=== PATIENT | female | born 1995 | race Caucasian/White ===

== ENCOUNTER 2020-09-11 13:45 | Outpatient (REF) | payer OTHER, SELFPAY | END 2020-09-11 13:46 | disposition home or self-care (01) | LOC: HO.LAB 13:45 | PROVIDERS: PCP Internal Medicine; Visit Provider Internal Medicine | DX: R30.0 Dysuria (principal); N39.0 Urinary tract infection, site not specified | CPT/HCPCS: 87086 ==

== ENCOUNTER → 2020-09-25 08:46 | Outpatient (BNVA) | payer OTHER, SELFPAY | PROVIDERS: PCP Internal Medicine; Referring Provider Internal Medicine; Visit Provider Internal Medicine Endocrinology, Diabetes & Metabolism | DX: Z76.89 Persons encountering health services in other specified circumstances (principal) ==

== ENCOUNTER → 2020-09-30 07:55 | Outpatient (BNVA) | payer OTHER, SELFPAY | PROVIDERS: Visit Provider Obstetrics & Gynecology | DX: N92.1 Excessive and frequent menstruation with irregular cycle (principal) | CPT/HCPCS: 81025; 99212 ==

== ENCOUNTER 2020-11-26 15:03 | Outpatient (REF) | payer OTHER, SELFPAY ==
[2020-11-26 16:26] LABS: Free T4 (Free Thyroxine) 0.95 ng/dL (0.71-1.85); Thyroid Stimulating Hormone 4.38 uIU/mL (0.32-4.0)
== END 2020-11-26 15:04 | disposition home or self-care (01) ==
LOC: HO.LAB 15:03
PROVIDERS: PCP Internal Medicine; Visit Provider Internal Medicine Endocrinology, Diabetes & Metabolism
DX: E89.0 Postprocedural hypothyroidism (principal)
CPT/HCPCS: 36415; 84439; 84443

== ENCOUNTER 2020-12-14 14:08 | Outpatient (REF) | payer OTHER, SELFPAY ==
[2020-12-14 15:39] LABS: Free T4 (Free Thyroxine) 0.96 ng/dL (0.71-1.85); Thyroid Stimulating Hormone 3.79 uIU/mL (0.32-4.0)
== END 2020-12-14 14:09 | disposition home or self-care (01) ==
LOC: HO.LAB 14:08
PROVIDERS: PCP Internal Medicine; Visit Provider Internal Medicine Endocrinology, Diabetes & Metabolism
DX: E03.9 Hypothyroidism, unspecified (principal)
CPT/HCPCS: 36415; 84439; 84443

== ENCOUNTER → 2021-01-05 15:34 | Outpatient (BNVA) | payer OTHER, SELFPAY | PROVIDERS: PCP Internal Medicine; Visit Provider Obstetrics & Gynecology | DX: Z30.9 Encounter for contraceptive management, unspecified (principal) | CPT/HCPCS: 81003; 99212 ==

== ENCOUNTER 2021-01-18 14:18 | Outpatient (REF) | payer OTHER, SELFPAY ==
[2021-01-18 15:38] LABS: MANUAL DIFF FLAG NO
[2021-01-18 15:42] LABS: Basophils Percent Auto 0.4 % (0-2); Eosinophils Absolute Auto 0.1 X10*3/uL (0.0-0.4); Eosinophils Percent Auto 0.6 % (0-4); Hematocrit 37.5 % (37-47); Hemoglobin 12.4 g/dl (12.0-16.0); Imm Gran Abs Auto 0.01 X10*3/uL (0.00-0.03); Imm Gran Pct Auto 0.1 % (0.0-0.4); Lymphocytes Absolute Auto 1.6 X10*3/uL (1.2-4.9); Lymphocytes Percent Auto 20.1 % (20-40); Mean Corpuscular HGB Conc 33.1 g/dl (31.0-35.0); Mean Corpuscular Hemoglobin 29.6 pg (27.0-33.0); Mean Corpuscular Volume 89.5 fL (80-98); Mean Platelet Volume 9.4 fL (9.4-12.3); Monocytes Absolute Auto 0.5 X10*3/uL (0.1-1.2); Neutrophils Percent Auto 72.8 % (45-73); Platelet Count 275 X10*3/uL (160-400); Red Blood Count 4.19 X10*6/uL (4.20-5.50); Red Cell Distribution Width 12.7 % (11.0-16.0); White Blood Count 8.2 X10*3/uL (4.8-10.8)
[2021-01-18 16:10] LABS: Alanine Aminotransferase 7 U/L (0-31); Albumin Level 4.2 g/dL (3.5-5.0); Alkaline Phosphatase 52 U/L (39-117); Anion Gap 13 (12-20); Aspartate Amino Transferase 12 U/L (5-31); Bilirubin Total 0.6 mg/dL (0.0-1.0); Blood Urea Nitrogen 12 mg/dL (9-16); C Reactive Protein 0.51 mg/dL (< or = 0.50); Calcium 8.9 mg/dL (8.4-10.2); Carbon Dioxide 24 mmol/L (22-29); Chloride 106 mmol/L (96-108); Estimated Glomerular Filt Rate > 60; Glucose Random 87 mg/dL (60-115); Sodium 139 mmol/L (135-145); Total Protein 7.1 g/dL (6.5-8.0)
[2021-01-18 16:30] LABS: Free T4 (Free Thyroxine) 0.88 ng/dL (0.71-1.85)
[2021-01-18 16:33] LABS: Erythrocyte Sedimentation Rate 4 MM/HR (0-20)
[2021-01-19 13:32] LABS: Transglutaminase IgA 1 U/mL
[2021-01-26 14:17] LABS: Endomysial IgA Antibody Negative (Negative)
== END 2021-01-18 14:19 | disposition home or self-care (01) ==
LOC: HO.LAB 14:18
PROVIDERS: Internal Medicine Endocrinology, Diabetes & Metabolism; PCP Internal Medicine; Visit Provider Physician Assistant
DX: K92.1 Melena (principal); K62.5 Hemorrhage of anus and rectum; R74.01 Elevation of levels of liver transaminase levels; R10.11 Right upper quadrant pain; R19.7 Diarrhea, unspecified; E89.0 Postprocedural hypothyroidism
CPT/HCPCS: 36415; 80053; 83516; 84439; 84443; 85025; 85652; 86140; 86255; 86256

== ENCOUNTER 2021-01-20 10:32 | Outpatient (REF) | payer OTHER, SELFPAY ==
[2021-01-27 22:07] LABS: Calprotectin, Fecal 1290 mcg/g
== END 2021-01-20 10:33 | disposition home or self-care (01) ==
LOC: HO.LNP 10:32
PROVIDERS: Visit Provider Physician Assistant
DX: R19.7 Diarrhea, unspecified (principal)
CPT/HCPCS: 83993

== ENCOUNTER 2021-01-27 11:51 | Day surgery (SDC) | payer OTHER, SELFPAY ==
[2021-01-20 13:26] VITALS: BMI 19.3
--- NOTE | 2021-01-26 09:12 | P.CONAN_ITS ---
Documented by User: Sarah Piña 01/26/21 09:14 HPI - Anesthesia Eval Consult details Narrative: 25yo F for Colonoscopy PMFSH Active Problems Active Problems: All Active Problems (Updated 01/25/21 @ 17:59 by Aniket Gonzalez MD) Tinea pedis (Acute) UTI (urinary tract infection) (Acute) Metrorrhagia (Acute) Constipation (Acute) Rectal bleeding (Acute) UTI (urinary tract infection) (Acute) Contraceptive management (Acute) Hematochezia (Acute) Vitamin D deficiency (Acute) Anxiety (Acute) GERD (gastroesophageal reflux disease) (Acute) Hypothyroidism (Acute) Past Medical History Medical History (Updated 01/25/21 @ 17:59 by Aniket Gonzalez MD) Anxiety Esophageal stricture GERD (gastroesophageal reflux disease) History of Graves' disease Hypothyroidism Intussusception Mild asthma Pancreatitis Psoriasis Renal calculus, right Vitamin D deficiency Family History Family History Father Elevated cholesterol Neuropathy Mother Raynauds syndrome Cervical cancer Sister Cervical cancer Paternal Grandmother Heart problem Maternal Grandmother Lung cancer Surgical History Surgical History History of biopsy History of endoscopy History of nasal cauterization History of nasal surgery History of surgery History of tonsillectomy History of wisdom tooth extraction Social History Social History Household Members: Family Are you a primary healthcare financial analyst to a significant other at home: No Do you presently have visiting nurse or other home services: No Alcohol intake: current Alcohol intake frequency: a few times a week Smoking Status: Never smoker Smoked in Last 30 Days: No Smoking Quit Date: uses Hookah occassionally Second Hand Smoke Exposure: Yes (Parents are smokers) Use of substances other than those prescribed or required for medical reasons: No Have you been hit, kicked, punched, or otherwise hurt by someone within the past year? 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 Sexual orientation: Straight/Heterosexual Gender identity: female Meds Allergies Allergy/AdvReac Type Severity Reaction Status Date / Time codeine [CODEINE] Allergy Unknown N/V Verified 01/25/21 16:51 hydromorphone [Dilaudid] Allergy Unknown sob Verified 01/25/21 16:51 itching, vomiting metronidazole Allergy Unknown Mood Swings Verified 01/25/21 16:51 Home Medications Medication Instructions Recorded Confirmed Last Taken Type fluoride (sodium) 1.1 % dental gel 0 applic DENTAL 09/25/20 01/25/21 Unknown History Exam Exam Date and Time: January 26, 2021 0912 Height,Weight and Vital Signs: Height 5 ft 1 in Weight 46.266 kg Pertinent Lab Results Pertinent Lab Results: Laboratory Tests 01/18/21 01/18/21 15:19 15:19 WBC 8.2 Hgb 12.4 Hct 37.5 Plt Count 275 Sodium 139 Potassium 4.0 Chloride 106 Carbon Dioxide 24 BUN 12 Creatinine 0.71 Assessment and Plan Assessment Anesthesia Assessment: Chart Reviewed Documented by User: Aysha Perez 01/27/21 12:09 [facility] Past Medical History Medical History (Updated 01/25/21 @ 17:59 by Aniket Gonzalez MD) Anxiety Esophageal stricture GERD (gastroesophageal reflux disease) History of Graves' disease Hypothyroidism Intussusception Mild asthma Pancreatitis Psoriasis Renal calculus, right Vitamin D deficiency Family History Family History Father Elevated cholesterol Neuropathy Mother Raynauds syndrome Cervical cancer Sister Cervical cancer Paternal Grandmother Heart problem Maternal Grandmother Lung cancer Surgical History Surgical History History of biopsy History of endoscopy History of nasal cauterization History of nasal surgery History of surgery History of tonsillectomy History of wisdom tooth extraction Social History Social History Household Members: Family Are you a primary healthcare financial analyst to a significant other at home: No Do you presently have visiting nurse or other home services: No Alcohol intake: current Alcohol intake frequency: a few times a week Smoking Status: Never smoker Smoked in Last 30 Days: No Smoking Quit Date: uses Hookah occassionally Second Hand Smoke Exposure: Yes (Parents are smokers) Use of substances other than those prescribed or required for medical reasons: No Have you been hit, kicked, punched, or otherwise hurt by someone within the past year? 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 Sexual orientation: Straight/Heterosexual Gender identity: female Meds Allergies Allergy/AdvReac Type Severity Reaction Status Date / Time codeine [CODEINE] Allergy Unknown N/V Verified 01/25/21 16:51 hydromorphone [Dilaudid] Allergy Unknown sob Verified 01/25/21 16:51 itching, vomiting metronidazole Allergy Unknown Mood Swings Verified 01/25/21 16:51 Home Medications Medication Instructions Recorded Confirmed Last Taken Type fluoride (sodium) 1.1 % dental gel 0 applic DENTAL 09/25/20 01/25/21 Unknown History Exam Airway Mallampati Class: II TM Dist: >3cm Neck ROM: Full Heart: RRR Lungs: CTA BL Assessment and Plan Assessment Anesthesia Assessment: Anesthesia Plan Discussed and Chart Reviewed Final Anesthetic Review NPO: Yes (Sip water with meds) ASA Class: II Final Preanesthetic Review: No Changes in Pt Med Stat, Meds/Allgs Chart Reviewed and Consent Obtained/Reviewed Patient Risk: Intermediate Procedure Risk: Intermediate Anesthetic Plan Anesthetic Plan: MAC: Disposition: Standard PACU
--- NOTE | 2021-01-27 12:04 | MHC.SHP ---
Pre-Procedural Eval Section B Chief Complaint: rectal bleeding Relevant Family History (Specify if Yes): No Relevant Social History: None Present Medications: see Short Stay Collaborative assessment Medical History: Significant History ( Anxiety Esophageal stricture GERD (gastroesophageal reflux disease) History of Graves' disease Hypothyroidism Intussusception Mild asthma Pancreatitis Psoriasis Renal calculus, right Vitamin D deficiency) History of Previous Operations: Relevant previous surgery/procedure and date(s) (History of biopsy History of endoscopy History of nasal cauterization History of nasal surgery History of surgery History of tonsillectomy History of wisdom tooth extraction) Allergies: Allergies Allergy/AdvReac Type Severity Reaction Status Date / Time codeine [CODEINE] Allergy Unknown N/V Verified 01/25/21 16:51 hydromorphone [Dilaudid] Allergy Unknown sob Verified 01/25/21 16:51 itching, vomiting metronidazole Allergy Unknown Mood Swings Verified 01/25/21 16:51 Review of Systems Sugical H&P ROS: Negative: Constitution, Cardiovascular, Respiratory, Neurological, Psychiatric, Hem-Onc, Allergic/Immunologic, Gastrointestinal, Genitourinary, Musculoskeletal, Integumentary, Endocrine and Eyes/Ears/Nose/Throat Exam Surgical H&P Exam: Normal: HEENT, Normal: Heart, Normal: Lungs, Normal: Extremities, Normal: Abdomen, Normal: Skin and Normal: Neurological Plan Diagnosis/Plan: Unchanged I have reviewed the history and physical and performed a pertinent physical examination on my patient. No changes have occurred unless specified.
[2021-01-27 12:06] VITALS: TEMP 36.6
[2021-01-27 12:26] VITALS: BP 98/63; PULSE 70; RESP 14; TEMP 36.6; O2SAT 97; BMI 19.3
--- NOTE | 2021-01-27 12:56 | PM.OP ---
Brief Operative Note Date of Service: 01/27/21 Pre-op diagnosis: rectal bleeding Post-op diagnosis: same Procedure: see op note Surgeon: Medina Zelaya MD Anesthesia: MAC Estimated blood loss (mL): 0 Condition: stable Disposition: PACU
--- NOTE | 2021-01-27 12:57 | W.PM.OPN ---
Operative Note Operative Note Date of Service: 01/27/21 Narrative: Operative Information Procedure Description: Colonoscopy COLONOSCOPY Instrument: Olympus variable stiffness pediatric scope 190L Colonoscopy Monitoring: Vital signs and clinical assessment, continuous EKG monitoring, Pulse oximetry, Carbon Dioxide monitoring and blood pressure monitoring were done throughout the procedure. Colon withdrawal time was 11 minutes. Procedure: The patient was placed in the left lateral decubitis position and pre-procedure medications were administered. After a digital rectal examination of the ano-rectum, the video colonoscope was inserted into the rectum and advanced through the colon to the cecum/TI. The colonoscope was slowly withdrawn in a retrograde panoramic fashion and the colon mucosa was carefully examined including a retroflexed view of the rectum. Findings and interventions are described below. Procedure Difficulty:easy Findings: Terminal Ileum-normal, nodular lymphoid hyperplasia noted, bx taken Cecum: micro abscesses noted with granularity and mild erythema, bx taken Ascending Colon: micro abscesses noted with granularity and mild erythema, bx taken Transverse Colon -micro abscesses noted with granularity and mild erythema, bx taken Descending Colon: micro abscesses noted with granularity and mild erythema, bx taken Sigmoid Colon: micro abscesses noted with granularity and mild erythema, bx taken Rectum: Retroflexion with small internal hemorrhoids, grade I, small erosions with erythema noted, bx taken Anorectum - normal Colon preparation: Mcgregor Bowel Preparation Scale Right colon; 3 Transverse colon: 3 Left colon; 3 (0 = Unprepared colon segment with mucosa not seen due to solid stool that cannot be cleared. 1 = Portion of mucosa of the colon segment seen, but other areas of the colon segment not well seen due to staining, residual stool and/or opaque liquid. 2 = Minor amount of residual staining, small fragments of stool and/or opaque liquid, but mucosa of colon segment seen well. 3 = Entire mucosa of colon segment seen well with no residual staining, small fragments of stool or opaque liquid) Impression and Post Procedure Diagnosis: non specific colitis, with micro-abscesses and granularity, worse in cecum and rectum internal hemorrhoids nodular lymphoid hyperplasia Plan: High fiber diet leaflet Avoid straining at stool, epsom salts and sitz bath, anusol supps or cream prn Repeat Colonoscopy aged 45 or earlier if clinically indicated check nsaid use history might need stool testing for parasites Above findings were reviewed with the patient and relevant handouts were provided if indicated.
[2021-01-27 12:59] LABS: UPreg QC Valid YES; Urine Pregnancy NEGATIVE (NEGATIVE)
[2021-01-27 13:40] VITALS: BP 87/47; PULSE 77; RESP 16; TEMP 36.3; O2SAT 99
[2021-01-27 13:55] VITALS: BP 106/77; PULSE 77; RESP 20; TEMP 36.3; O2SAT 100
--- NOTE | 2021-02-06 13:09 | PM.EVENT ---
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 Advised cont amox, topical hydrocortisone cream to rectal area. Call office on Mon to f/u.
== END 2021-01-27 14:23 | disposition home or self-care (01) ==
PROVIDERS: PCP Internal Medicine; Visit Provider Internal Medicine Gastroenterology
PROC: 0DJD8ZZ Inspection of Lower Intestinal Tract, Via Natural or Artificial Opening Endoscopic (ICD-10-PCS; CPT 45378; principal; 2021-01-27 13:10)
DX: K62.5 Hemorrhage of anus and rectum (principal); K52.9 Noninfective gastroenteritis and colitis, unspecified; K64.0 First degree hemorrhoids; K21.9 Gastro-esophageal reflux disease without esophagitis; K22.2 Esophageal obstruction; K85.90 Acute pancreatitis without necrosis or infection, unspecified; F41.9 Anxiety disorder, unspecified; J45.909 Unspecified asthma, uncomplicated; E55.9 Vitamin D deficiency, unspecified; E89.0 Postprocedural hypothyroidism; Z79.899 Other long term (current) drug therapy; Z88.8 Allergy status to other drugs, medicaments and biological substances; Z87.442 Personal history of urinary calculi; Z77.22 Contact with and (suspected) exposure to environmental tobacco smoke (acute) (chronic)
CPT/HCPCS: 45380; 81025; 88305

== ENCOUNTER 2021-01-29 13:54 | Outpatient (REF) | payer OTHER, SELFPAY ==
--- NOTE | ~2021-01-29 | US_ITS ---
EXAMINATION: US THYROID CLINICAL INFORMATION: Hypothyroidism, unspecified. COMPARISON: Ultrasound soft tissue head/neck thyroid dated 06/15/2017. TECHNIQUE: Linear transducer grayscale and color Doppler examination with attention to the region of the thyroid. FINDINGS: SIZE: Measurements of the thyroid lobes and nodules are given in sagittal, anteroposterior and transverse dimensions respectively. Right Thyroid Lobe: 3.6 x 0.9 x 1.1 cm, volume 1.9 mL. Previously 3.8 x 0.9 x 1.1 cm, volume 2.0 mL. Parenchyma: The gland echotexture is heterogeneous. Thyroid vascularity is normal. Left Thyroid Lobe: 4.0 x 0.6 x 0.8 cm, volume 1.0 mL. Previously 4.0 x 0.8 x 1.2 cm, volume 2.0 mL. Parenchyma: The gland echotexture is heterogeneous. Thyroid vascularity is normal. Isthmus: 0.1 cm in maximum AP dimension. Previously 0.2 cm. Estimated total number of nodules greater than or equal to 1 cm: 0. No focal thyroid nodule is seen. NODES: No lymphadenopathy is seen in the tissue surrounding the thyroid gland. US/US thyroid IMPRESSION: Small heterogeneous thyroid gland similar to previous exams.
== END 2021-01-29 13:55 | disposition home or self-care (01) ==
LOC: HO.HMGCX 13:54
PROVIDERS: Visit Provider Internal Medicine
DX: E03.9 Hypothyroidism, unspecified (principal)
CPT/HCPCS: 76536

== ENCOUNTER → 2021-02-10 13:43 | Outpatient (BNVA) | payer OTHER, SELFPAY | PROVIDERS: PCP Internal Medicine; Visit Provider Physician Assistant ==

== ENCOUNTER → 2021-03-15 10:07 | Outpatient (BNVA) | payer OTHER, SELFPAY | PROVIDERS: PCP Internal Medicine; Visit Provider Physician Assistant ==

== ENCOUNTER 2021-04-23 13:43 | Outpatient (REF) | payer OTHER, SELFPAY ==
--- NOTE | ~2021-04-23 | CT_ITS ---
EXAMINATION: CT ENTEROGRAPHY ABDOMEN AND PELVIS WITH CONTRAST CLINICAL INFORMATION: Noninfected gastroenteritis and colitis COMPARISON: Previous CT of the abdomen and pelvis February 2020 and MRI of the abdomen June 2020 TECHNIQUE: Study performed with oral VoLumen (1350 mL) and 480 mL of water to distend the abdomen. The patient was injected with 85 mL Omnipaque 350 intravenous contrast which was administered without adverse effect. Coronal and sagittal reformatted images were obtained at the technologist's workstation. This CT examination was performed using dose optimization techniques as appropriate, variously including the following: *Automated exposure control *Adjustment of mA and/or kV according to patient size (this includes techniques or standardized protocols for targeted exams where dose is matched to indication/reason for exam; i.e. extremities or head) *Use of iterative reconstruction technique DLP: 162 mGy-cm FINDINGS: GASTROINTESTINAL FINDINGS: Stomach: Well-distended and normal in appearance. Small intestine: Satisfactorily distended and normal in appearance. Large intestine: Well-distended and normal in appearance. No perirectal changes demonstrated. The appendix is normal. There is stool throughout the colon questionable for constipation. Additional findings: No abnormal enhancement of the vasa recta or significant mesenteric or retroperitoneal lymphadenopathy is seen. No abdominal abscess or fistulous tract demonstrated. ABDOMINAL AND PELVIC CT FINDINGS: Liver, gallbladder, biliary tract: Normal Pancreas: Normal Spleen: Normal Adrenal glands and kidneys: Normal Ureters and bladder: Normal Lymphovascular structures: Normal Bones: Normal Lung bases: Normal CT/CT enterography IMPRESSION: Stool throughout the colon questionable for constipation otherwise unremarkable examination.
[2021-04-23] MEDS: iohexoL 350 MG/ML 100 ML INFUS..BTL IV (16:01)
[2021-04-23] MEDS: Sorbitol/Mannit/Xanth Imaging 500 ML LIQUID 1500 ML PO (16:01)
== END 2021-04-23 13:44 | disposition home or self-care (01) ==
LOC: HO.US 13:43
PROVIDERS: PCP Internal Medicine; Visit Provider Physician Assistant
DX: K52.9 Noninfective gastroenteritis and colitis, unspecified (principal)
CPT/HCPCS: 74177; Q9967

== ENCOUNTER 2021-08-03 09:37 | Outpatient (REF) | payer OTHER, SELFPAY ==
[2021-08-03 11:02] LABS: MANUAL DIFF FLAG NO
[2021-08-03 11:09] LABS: Basophils Percent Auto 0.3 % (0-2); Eosinophils Absolute Auto 0.1 X10*3/uL (0.0-0.4); Eosinophils Percent Auto 1.1 % (0-4); Hemoglobin 13.1 g/dl (12.0-16.0); Imm Gran Abs Auto 0.01 X10*3/uL (0.00-0.03); Imm Gran Pct Auto 0.2 % (0.0-0.4); Lymphocytes Absolute Auto 1.5 X10*3/uL (1.2-4.9); Lymphocytes Percent Auto 23.3 % (20-40); Mean Corpuscular Hemoglobin 28.7 pg (27.0-33.0); Mean Corpuscular Volume 89.9 fL (80-98); Mean Platelet Volume 9.1 fL (9.4-12.3); Monocytes Absolute Auto 0.5 X10*3/uL (0.1-1.2); Monocytes Percent Auto 7.2 % (2-11); Neutrophils Absolute Auto 4.4 X10*3/uL (2.0-8.3); Neutrophils Percent Auto 67.9 % (45-73); Platelet Count 293 X10*3/uL (160-400); Red Blood Count 4.56 X10*6/uL (4.20-5.50); Red Cell Distribution Width 12.6 % (11.0-16.0); White Blood Count 6.5 X10*3/uL (4.8-10.8)
[2021-08-03 11:39] LABS: Alanine Aminotransferase 11 U/L (0-31); Albumin Level 4.3 g/dL (3.5-5.0); Alkaline Phosphatase 57 U/L (39-117); Anion Gap 13 (12-20); Aspartate Amino Transferase 16 U/L (5-31); Bilirubin Total 0.6 mg/dL (0.0-1.0); Blood Urea Nitrogen 11 mg/dL (9-16); Calcium 9.3 mg/dL (8.4-10.2); Carbon Dioxide 23 mmol/L (22-29); Chloride 107 mmol/L (96-108); Estimated Glomerular Filt Rate > 60; Glucose Random 87 mg/dL (60-115); Potassium 4.9 mmol/L (3.3-5.1); Sodium 138 mmol/L (135-145); Total Protein 7.1 g/dL (6.5-8.0)
[2021-08-03 11:52] LABS: Appearance Urine CLEAR; Color Urine YELLOW; Glucose Urine UA NEG (NEG); Leukocyte Esterase Urine NEG (NEG); Nitrite Urine NEG (NEG); Specific Gravity - Urine 1.025 (1.005-1.025); UACC Culture Trigger NO; Urine Blood TRACE (NEG); Urine Ketones NEG (NEG); Urine Protein NEG (NEG-TRACE)
[2021-08-03 12:05] LABS: Free T4 (Free Thyroxine) 0.83 ng/dL (0.71-1.85); Thyroid Stimulating Hormone 8.43 uIU/mL (0.32-4.0)
[2021-08-03 12:09] LABS: Folate 17.1 ng/mL (> or = 4.0); Vitamin B12 195 pg/mL (200-900)
[2021-08-03 12:25] LABS: Bacteria Urine 1+ /LPF; Mucus Urine 2+ /LPF; RBC Urine 0 /HPF (0); Squamous Epithelial Cell Urine TRACE /LPF; WBC Urine 0-2 /HPF (0-4)
== END 2021-08-03 09:38 | disposition home or self-care (01) ==
LOC: HO.LAB 09:37
PROVIDERS: PCP Internal Medicine; Referring Provider Internal Medicine; Visit Provider Internal Medicine Gastroenterology
DX: N39.0 Urinary tract infection, site not specified (principal); K52.9 Noninfective gastroenteritis and colitis, unspecified; E03.9 Hypothyroidism, unspecified
CPT/HCPCS: 36415; 80053; 81001; 82306; 82607; 82746; 84439; 84443; 85025; 99212

== ENCOUNTER 2021-09-01 09:02 | Day surgery (SDC) | payer OTHER, SELFPAY ==
[2021-08-27 12:02] VITALS: BMI 19.3
--- NOTE | 2021-08-31 10:44 | P.CONAN_ITS ---
Documented by User: Sarah Piña NP 08/31/21 10:45 HPI - Anesthesia Eval Consult details Narrative: 26yo F for Upper Endoscopy colo with MAC 01/2021 PMF Active Problems Active Problems: All Active Problems (Updated 08/27/21 @ 11:53 by Susan Peoples RN) UTI (urinary tract infection) (Acute) Metrorrhagia (Acute) Constipation (Acute) Rectal bleeding (Acute) UTI (urinary tract infection) (Acute) Contraceptive management (Acute) Hematochezia (Acute) Tinea pedis (Acute) Colitis (Acute) Annual physical exam (Acute) Vitamin D deficiency (Acute) Anxiety (Acute) GERD (gastroesophageal reflux disease) (Acute) Hypothyroidism (Acute) Past Medical History Medical History Anxiety Esophageal stricture GERD (gastroesophageal reflux disease) History of Graves' disease Hypothyroidism Intussusception Mild asthma Pancreatitis Psoriasis Renal calculus, right Vitamin D deficiency Family History Family History Father Elevated cholesterol Neuropathy Mother Raynauds syndrome Cervical cancer Sister Cervical cancer Paternal Grandmother Heart problem Maternal Grandmother Lung cancer Surgical History Surgical History History of biopsy History of endoscopy History of nasal cauterization History of nasal surgery History of surgery History of tonsillectomy History of wisdom tooth extraction Hx of colonoscopy Social History Social History Household Members: Family Housing: House Are you a primary landcare facilitator to a significant other at home: No Do you presently have visiting nurse or other home services: No Alcohol intake: current Alcohol intake frequency: holidays/special occasions o nly Patient Tobacco Use Status: Never used Tobacco e-Cigarette/Vaping Use: Never Used Second Hand Smoke Exposure: Yes (Parents are smokers) Advance Directives Information Provided: Yes (informational brochure mailed) Advance Directives on File: No service: No Current occupational status: employed 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 Sexual orientation: Straight/Heterosexual Gender identity: Female Meds Allergies Allergy/AdvReac Type Severity Reaction Status Date / Time hydromorphone [Dilaudid] Allergy Intermediate sob Verified 08/27/21 11:55 itching, vomiting metronidazole Allergy Intermediate Mood Swings Verified 08/27/21 11:55 codeine [CODEINE] AdvReac Intermediate N/V Verified 08/27/21 11:55 Home Medications Medication Instructions Recorded Confirmed Last Taken Type fluoride (sodium) 1.1 % dental gel 0 applic DENTAL 09/25/20 05/27/21 Unknown History Exam Exam Date and Time: August 31, 2021 1044 Height,Weight and Vital Signs: Height 5 ft 1 in Weight 46.266 kg Pertinent Lab Results Pertinent Lab Results: Laboratory Tests 08/03/21 08/03/21 10:44 10:44 WBC 6.5 Hgb 13.1 Hct 41.0 Plt Count 293 Sodium 138 Potassium 4.9 D Chloride 107 Carbon Dioxide 23 BUN 11 Creatinine 0.79 Assessment and Plan Assessment Anesthesia Assessment: Chart Reviewed Documented by User: Yani Huerta MD 09/01/21 10:31 PMFSH Past Medical History Medical History Anxiety Esophageal stricture GERD (gastroesophageal reflux disease) History of Graves' disease Hypothyroidism Intussusception Mild asthma Pancreatitis Psoriasis Renal calculus, right Vitamin D deficiency Functional capacity: independent ambulation Patient : No Family History Family History Father Elevated cholesterol Neuropathy Mother Raynauds syndrome Cervical cancer Sister Cervical cancer Paternal Grandmother Heart problem Maternal Grandmother Lung cancer Family history of problems with anesthesia: No Surgical History Surgical History History of biopsy History of endoscopy History of nasal cauterization History of nasal surgery History of surgery History of tonsillectomy History of wisdom tooth extraction Hx of colonoscopy History of Problems with Anesthesia: No Social History Social History (Reviewed 08/03/21 @ 09:41 by LINDSAY Bell Household Members: Family Housing: House Are you a primary landcare facilitator to a significant other at home: No Do you presently have visiting nurse or other home services: No Alcohol intake: current Alcohol intake frequency: holidays/special occasions only Patient Tobacco Use Status: Never used Tobacco e-Cigarette/Vaping Use: Never Used Second Hand Smoke Exposure: Yes (Parents are smokers) Advance Directives Information Provided: Yes (informational brochure mailed) Advance Directives on File: No service: No Current occupational status: employed 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 Sexual orientation: Straight/Heterosexual Gender identity: Female Meds Allergies Allergy/AdvReac Type Severity Reaction Status Date / Time hydromorphone [Dilaudid] Allergy Intermediate sob Verified 08/27/21 11:55 itching, vomiting metronidazole Allergy Intermediate Mood Swings Verified 08/27/21 11:55 codeine [CODEINE] AdvReac Intermediate N/V Verified 08/27/21 11:55 Home Medications Medication Instructions Recorded Confirmed Last Taken Type fluoride (sodium) 1.1 % dental gel 0 applic DENTAL 09/25/20 05/27/21 Unknown History Exam Airway Mallampati Class: II TM Dist: >3cm Neck ROM: Full Heart: RRR Other: CTA Assessment and Plan Final Anesthetic Review Family History of Problems with Anesthesia: No History of Problems with Anesthesia: No
[2021-09-01 09:38] VITALS: BP 114/76; PULSE 61; RESP 14; TEMP 36.1; O2SAT 98; BMI 21.7
[2021-09-01] MEDS: Lactated Ringers 1,000 ML 100 ML IVCONT (09:40)
--- NOTE | 2021-09-01 10:05 | MHC.SHP ---
Pre-Procedural Eval Section A Date of Service: 09/01/21 The patient is an INPATIENT: No The History & Physical has been completed within 30 days and I have reviewed it.: Yes Section B Chief Complaint: gastroenteritis Allergies: Allergies Allergy/AdvReac Type Severity Reaction Status Date / Time hydromorphone [Dilaudid] Allergy Intermediate sob Verified 08/27/21 11:55 itching, vomiting metronidazole Allergy Intermediate Mood Swings Verified 08/27/21 11:55 codeine [CODEINE] AdvReac Intermediate N/V Verified 08/27/21 11:55 Plan Diagnosis/Plan: Unchanged I have reviewed the history and physical and performed a pertinent physical examination on my patient. No changes have occurred unless specified.
[2021-09-01 10:15] LABS: UPreg QC Valid YES; Urine Pregnancy NEGATIVE (NEGATIVE)
--- NOTE | 2021-09-01 10:17 | P.BOP_ITS ---
Brief Operative Note Date of Service: 09/01/21 Pre-op diagnosis: upper abdominal pain Post-op diagnosis: same Procedure: see op note Surgeon: Medina Zelaya MD Anesthesia: MAC Was an Inspector Health Care Facilities used for this Procedure?: No Estimated blood loss (mL): 0 Condition: stable Disposition: PACU
--- NOTE | 2021-09-01 10:34 | W.PM.OPN ---
Operative Note Operative Note Date of Service: 09/01/21 Narrative: Procedure Description: EGD FLEXIBLE TRANSORAL UPPER GASTROINTESTINAL ENDOSCOPY UPPER ENDOSCOPY Consent: Indications for the procedure and potential complications of bleeding, perforation, reaction to medications and missed diagnosis were discussed with the patient and informed consent was obtained. Instrument: Olympus GIF H 190 J mid size upper endoscope Monitoring: Vital signs and clinical assessment, continuous EKG monitoring, Pulse oximetry, Carbon Dioxide monitoring and blood pressure monitoring were done throughout the procedure. Procedure: The patient was placed in the left lateral decubitis position and pre-procedure medications were administered and a bite block was placed. The endoscope was inserted into the mouth and advanced under direct vision to the third part of duodenum. A careful inspection was made as the upper endoscope was withdrawn including a retroflexed examination of the proximal stomach; Findings and interventions are described below. Findings: Larynx:normal Esophagus: GE junction at 36 cm, diaphragm hiatus at 38 cm, 2 cm sliding hiatal hernia noted. mile erythema at GEJ, bx taken as well as random esophagus . 10 mm esophageal inlet patch noted Stomach: Patchy gastric erythema. Biopsies were obtained. Grade 2 flap valve on retroflexed examination of the cardia. Duodenum: Patchy erythema in duodenum, bx taken Intervention: Biopsies as noted above Impression/Findings: esophagitis duodenitis mild gastritis hiatal hernia esophageal inlet patch PLAN: await bx, if ongoing sx then probably GES, maybe consider MRI pancreas can also give trial of PPI and assess response
[2021-09-01 10:40] VITALS: BP 97/55; PULSE 84; RESP 16; TEMP 36.2; O2SAT 97
[2021-09-01 10:55] VITALS: BP 119/87; PULSE 76; RESP 16; TEMP 36.2; O2SAT 99
--- NOTE | 2021-09-01 11:43 | HO.POSTANES ---
Post Anesthesia Evaluation Post Anesthesia Evaluation Vital Signs: Vital Signs Temp Pulse Resp BP Pulse Ox 09/01/21 10:55 97.1 F 76 16 119/87 99 09/01/21 10:40 97.1 F 84 16 97/55 L 97 09/01/21 09:38 97.0 F 61 14 114/76 98 Anesthesia: Monitored Mental Status: Awake Pain Control: Satisfactory Nausea/Vomiting: None Hydration: Adequate Anesthesia-Related Issues: No Anes. Related Issues
== END 2021-09-01 11:32 | disposition home or self-care (01) ==
PROVIDERS: Nurse Practitioner; PCP Internal Medicine; Visit Provider Internal Medicine Gastroenterology
PROC: 0DJ08ZZ Inspection of Upper Intestinal Tract, Via Natural or Artificial Opening Endoscopic (ICD-10-PCS; CPT 43235; principal; 2021-09-01 10:20)
DX: K52.9 Noninfective gastroenteritis and colitis, unspecified (principal); K20.80 Other esophagitis without bleeding; K29.80 Duodenitis without bleeding; K29.60 Other gastritis without bleeding; K44.9 Diaphragmatic hernia without obstruction or gangrene; Q39.8 Other congenital malformations of esophagus; K21.9 Gastro-esophageal reflux disease without esophagitis; J45.909 Unspecified asthma, uncomplicated; E03.9 Hypothyroidism, unspecified; E55.9 Vitamin D deficiency, unspecified; Z87.19 Personal history of other diseases of the digestive system; Z77.22 Contact with and (suspected) exposure to environmental tobacco smoke (acute) (chronic); Z88.8 Allergy status to other drugs, medicaments and biological substances
CPT/HCPCS: 43239; 81025; 88305; 88342

== ENCOUNTER 2021-09-16 10:53 | Outpatient (REF) | payer OTHER, SELFPAY ==
[2021-09-17 04:31] LABS: CT PCR NOT DETECTED (Not Detect.); NG PCR NOT DETECTED (Not Detect.)
[2021-09-17 09:44] LABS: BV Int Neg Control Negative (Negative); BV Int Pos Control Positive (Positive)
== END 2021-09-16 10:54 | disposition home or self-care (01) ==
LOC: HO.LAB 10:53
PROVIDERS: PCP Internal Medicine; Visit Provider Obstetrics & Gynecology
DX: Z01.411 Encounter for gynecological examination (general) (routine) with abnormal findings (principal); Z11.3 Encounter for screening for infections with a predominantly sexual mode of transmission; N89.8 Other specified noninflammatory disorders of vagina; K62.5 Hemorrhage of anus and rectum
CPT/HCPCS: 87480; 87491; 87510; 87591; 87660

== ENCOUNTER 2021-10-04 15:31 | Outpatient (REF) | payer OTHER, SELFPAY ==
[2021-10-04 17:04] LABS: Free T4 (Free Thyroxine) 0.88 ng/dL (0.71-1.85); Thyroid Stimulating Hormone 5.04 uIU/mL (0.32-4.0)
== END 2021-10-04 15:32 | disposition home or self-care (01) ==
LOC: HO.LAB 15:31
PROVIDERS: PCP Internal Medicine; Visit Provider Internal Medicine
DX: E03.9 Hypothyroidism, unspecified (principal); R30.0 Dysuria; N39.0 Urinary tract infection, site not specified; K52.9 Noninfective gastroenteritis and colitis, unspecified
CPT/HCPCS: 36415; 84439; 84443

== ENCOUNTER 2021-10-18 11:11 | Outpatient (REF) | payer OTHER, SELFPAY ==
[2021-10-22 21:36] LABS: Calprotectin, Fecal 728 mcg/g
== END 2021-10-18 11:12 | disposition home or self-care (01) ==
LOC: HO.LNP 11:11
PROVIDERS: Visit Provider Internal Medicine Gastroenterology
DX: K52.9 Noninfective gastroenteritis and colitis, unspecified (principal); N39.0 Urinary tract infection, site not specified
CPT/HCPCS: 83993

== ENCOUNTER → 2021-12-03 07:53 | Outpatient (REF) | payer OTHER, SELFPAY ==
--- NOTE | ~2021-12-03 | NM_ITS ---
EXAMINATION: RADIONUCLIDE SOLID FOOD GASTRIC EMPTYING 4-HOUR STUDY CLINICAL INFORMATION: Early satiety. COMPARISON: None. TECHNIQUE: A standard meal consisting of 4 oz of Egg Beaters brand equivalent tagged with 1 mCi Tc-99m Sulfur Colloid, 8 oz water and 2 slices of toast with jelly was administered orally to the patient. Images were obtained using a dual head gamma camera in the anterior and posterior projections over of the stomach immediately post ingestion and at hourly intervals up to 4 hours post ingestion. The anterior and posterior counts at each time interval were averaged using the geometric mean and expressed as percentage of the immediate post ingestion counts. FINDINGS: There is good visualization of activity in the stomach immediately post ingestion. As the study progresses, there is good clearance of activity from the stomach and visualization of progressively increasing small bowel activity. By the end of the study, there is almost no retention noted in the stomach. Retention in the stomach at each time interval was: 1 hour 88% (normal 37%-90%) 2 hours 47% (normal 30%-60%) 3 hours 9% 4 hours 4% (normal 0%-10%) NM/NM gastric emptying study IMPRESSION: Normal 4-hour solid food gastric emptying study.
== END ==
LOC: HO.NUCMED 07:53
PROVIDERS: PCP Internal Medicine; Visit Provider Internal Medicine Gastroenterology
DX: R68.81 Early satiety (principal)
CPT/HCPCS: 78264; A9541

== ENCOUNTER 2021-12-17 09:36 | Outpatient (REF) | payer OTHER, SELFPAY ==
[2021-12-17 11:34] LABS: Free T4 (Free Thyroxine) 0.84 ng/dL (0.71-1.85); Thyroid Stimulating Hormone 6.45 uIU/mL (0.32-4.0)
[2021-12-17 11:55] LABS: Folate 16.6 ng/mL (> or = 4.0); Vitamin B12 199 pg/mL (200-900)
[2021-12-21 12:26] LABS: Parietal Cell Antibody <=20.0 Unit (<=20.0)
[2021-12-23 00:11] LABS: Intrinsic Factor Antibodies Negative (Negative)
== END 2021-12-17 09:37 | disposition home or self-care (01) ==
LOC: HO.LAB 09:36
PROVIDERS: PCP Internal Medicine; Referring Provider Internal Medicine; Visit Provider Internal Medicine Gastroenterology
DX: K21.9 Gastro-esophageal reflux disease without esophagitis (principal); E53.8 Deficiency of other specified B group vitamins; E03.9 Hypothyroidism, unspecified
CPT/HCPCS: 36415; 82607; 82746; 83516; 84439; 84443; 86340; 99212

== ENCOUNTER 2022-01-31 15:21 | Outpatient (REF) | payer OTHER, SELFPAY ==
[2022-01-31 17:29] LABS: Free T4 (Free Thyroxine) 0.94 ng/dL (0.71-1.85); Thyroid Stimulating Hormone 1.62 uIU/mL (0.32-4.0)
== END 2022-01-31 15:22 | disposition home or self-care (01) ==
LOC: HO.LAB 15:21
PROVIDERS: PCP Internal Medicine; Visit Provider Internal Medicine
DX: E03.9 Hypothyroidism, unspecified (principal)
CPT/HCPCS: 36415; 84439; 84443

== ENCOUNTER 2022-03-28 16:02 | Outpatient (REF) | payer OTHER, SELFPAY ==
--- NOTE | ~2022-03-28 | US_ITS ---
EXAMINATION: US VENOUS ULTRASOUND WITH DOPPLER LOWER EXTREMITY, BILATERAL CLINICAL INFORMATION: Edema. COMPARISON: None TECHNIQUE: Ultrasound of the deep veins is performed from the hip to the calf with compression sonography and color and pulse Doppler assessment. Spectral analysis with color-flow imaging is performed. FINDINGS: RIGHT: There is normal venous compression and respiratory variation and augmented flow. The visualized common femoral vein, superficial femoral vein, profunda femoral vein, popliteal vein, and the trifurcation region shows no evidence of deep venous thrombosis. There is no significant popliteal fossa cyst. LEFT: There is normal venous compression and respiratory variation and augmented flow. The visualized common femoral vein, superficial femoral vein, profunda femoral vein, popliteal vein, and the trifurcation region shows no evidence of deep venous thrombosis. There is no significant popliteal fossa cyst. If the patient's symptoms persist, followup ultrasound in 5 days 7 days might be of value to exclude proximal propagation from a non-visualized calf vein. US/US venous duplex LE BI IMPRESSION: No DVT demonstrated in the bilateral lower extremities.
[2022-03-28 16:51] LABS: MANUAL DIFF FLAG NO
[2022-03-28 18:24] LABS: Basophils Percent Auto 0.2 % (0-2); Eosinophils Absolute Auto 0.1 X10*3/uL (0.0-0.4); Eosinophils Percent Auto 0.7 % (0-4); Hematocrit 36.2 % (37.0-47.0); Hemoglobin 11.8 g/dl (12.0-16.0); Imm Gran Abs Auto 0.03 X10*3/uL (0.00-0.03); Imm Gran Pct Auto 0.4 % (0.0-0.4); Lymphocytes Absolute Auto 1.8 X10*3/uL (1.2-4.9); Lymphocytes Percent Auto 21.4 % (20-40); Mean Corpuscular HGB Conc 32.6 g/dl (31.0-35.0); Mean Corpuscular Hemoglobin 28.2 pg (27.0-33.0); Mean Corpuscular Volume 86.4 fL (80.0-98.0); Mean Platelet Volume 9.7 fL (9.4-12.3); Monocytes Absolute Auto 0.7 X10*3/uL (0.1-1.2); Monocytes Percent Auto 8.5 % (2-11); Neutrophils Absolute Auto 5.6 x10*3/uL (2.0-8.3); Neutrophils Percent Auto 68.8 % (45-73); Platelet Count 328 X10*3/uL (160-400); Red Blood Count 4.19 X10*6/uL (4.20-5.50); Red Cell Distribution Width 14.4 % (11.0-16.0); White Blood Count 8.2 X10*3/uL (4.8-10.8)
[2022-03-28 18:34] LABS: D Dimer High Sensitivity 154 NG/ML
[2022-03-28 18:45] LABS: Alanine Aminotransferase 18 U/L (0-31); Albumin Level 3.8 g/dL (3.5-5.0); Alkaline Phosphatase 59 U/L (39-117); Anion Gap 12 (12-20); Aspartate Amino Transferase 18 U/L (5-31); Bilirubin Total 0.5 mg/dL (0.0-1.0); Blood Urea Nitrogen 8 mg/dL (9-16); Calcium 9.2 mg/dL (8.4-10.2); Carbon Dioxide 23 mmol/L (22-29); Chloride 107 mmol/L (96-108); Estimated Glomerular Filt Rate > 60; Glucose Random 71 mg/dL (60-115); Potassium 4.3 mmol/L (3.3-5.1); Sodium 138 mmol/L (135-145); Total Protein 7.1 g/dL (6.5-8.0)
[2022-03-28 19:08] LABS: Free T4 (Free Thyroxine) 0.87 ng/dL (0.71-1.85); Thyroid Stimulating Hormone 1.19 uIU/mL (0.32-4.0)
== END 2022-03-28 16:03 | disposition home or self-care (01) ==
LOC: HO.US 16:02
PROVIDERS: Visit Provider Internal Medicine
DX: R60.0 Localized edema (principal); M79.89 Other specified soft tissue disorders
CPT/HCPCS: 36415; 80053; 84439; 84443; 85025; 85379; 93970

== ENCOUNTER → 2022-04-01 13:57 | Outpatient (BNVA) | payer OTHER, SELFPAY | PROVIDERS: PCP Internal Medicine; Visit Provider Internal Medicine Endocrinology, Diabetes & Metabolism | DX: E03.9 Hypothyroidism, unspecified (principal) | CPT/HCPCS: 99212 ==

== ENCOUNTER 2022-04-03 | Outpatient (REF) | payer OTHER, SELFPAY | END 2022-04-03 00:01 | disposition home or self-care (01) | LOC: HO.LNP | PROVIDERS: Visit Provider Internal Medicine Gastroenterology | DX: Z13.89 Encounter for screening for other disorder (principal) ==

== ENCOUNTER 2022-05-04 11:02 | Outpatient (REF) | payer OTHER, SELFPAY ==
--- NOTE | ~2022-05-04 | XR_ITS ---
EXAMINATION: XR FOOT, RIGHT XR FOOT, LEFT CLINICAL INFORMATION: Bilateral foot pain. No known trauma. COMPARISON: Bilateral lower extremity venous ultrasound 03/28/2022. TECHNIQUE: Each foot is imaged in 3 views. There are total of 6 views. FINDINGS: Right: Normal bony mineralization. No acute or healing fracture, dislocation, destructive process. There is mild hallux valgus first MTP of approximately 20 degrees. The retrocalcaneal recess preserved. No calcaneal spurring. No joint narrowing or erosive change. Left: Normal bony mineralization. No acute or healing fracture, dislocation, destructive process. The retrocalcaneal recess preserved. No calcaneal spurring. No joint narrowing or erosive change. XR/XR foot RT 2V IMPRESSION: -No fracture, dislocation, or arthropathy. -Mild right hallux valgus first MTP.
--- NOTE | ~2022-05-04 | XR_ITS ---
EXAMINATION: XR FOOT, RIGHT XR FOOT, LEFT CLINICAL INFORMATION: Bilateral foot pain. No known trauma. COMPARISON: Bilateral lower extremity venous ultrasound 03/28/2022. TECHNIQUE: Each foot is imaged in 3 views. There are total of 6 views. FINDINGS: Right: Normal bony mineralization. No acute or healing fracture, dislocation, destructive process. There is mild hallux valgus first MTP of approximately 20 degrees. The retrocalcaneal recess preserved. No calcaneal spurring. No joint narrowing or erosive change. Left: Normal bony mineralization. No acute or healing fracture, dislocation, destructive process. The retrocalcaneal recess preserved. No calcaneal spurring. No joint narrowing or erosive change. XR/XR foot LT 2V IMPRESSION: -No fracture, dislocation, or arthropathy. -Mild right hallux valgus first MTP.
== END 2022-05-04 11:03 | disposition home or self-care (01) ==
LOC: HO.XRAY 11:02
PROVIDERS: PCP Internal Medicine; Referring Provider Internal Medicine; Visit Provider Physician Assistant
DX: M79.671 Pain in right foot (principal); M79.672 Pain in left foot
CPT/HCPCS: 73620

== ENCOUNTER 2022-07-21 15:40 | Outpatient (REF) | payer OTHER, SELFPAY ==
--- NOTE | ~2022-07-21 | XR_ITS ---
EXAMINATION: XR WRIST, RIGHT CLINICAL INFORMATION: Unspecified injury of the wrist COMPARISON: None TECHNIQUE: PA, lateral, and oblique views of the right wrist. FINDINGS: No acute fracture or dislocation is identified. Joint spaces are maintained. Cast/splint material is seen along the radial aspect of the wrist and thumb. XR/XR wrist RT min 3V IMPRESSION: 1. No acute fracture or dislocation identified.
== END 2022-07-21 15:41 | disposition home or self-care (01) ==
LOC: HO.HMGCX 15:40
PROVIDERS: PCP Internal Medicine
DX: S69.91XD Unspecified injury of right wrist, hand and finger(s), subsequent encounter (principal)
CPT/HCPCS: 73110

== ENCOUNTER 2022-09-16 06:28 | Outpatient (REF) | payer OTHER, SELFPAY ==
[2022-09-16 06:36] LABS: MANUAL DIFF FLAG NO
[2022-09-16 07:37] LABS: Basophils Percent Auto 0.4 % (0-2); Eosinophils Absolute Auto 0.1 X10*3/uL (0.0-0.4); Eosinophils Percent Auto 1.2 % (0-4); Hematocrit 35.7 % (37.0-47.0); Hemoglobin 11.8 g/dl (12.0-16.0); Imm Gran Abs Auto 0.02 X10*3/uL (0.00-0.03); Imm Gran Pct Auto 0.3 % (0.0-0.4); Lymphocytes Absolute Auto 2.5 X10*3/uL (1.2-4.9); Lymphocytes Percent Auto 31.4 % (20-40); Mean Corpuscular HGB Conc 33.1 g/dl (31.0-35.0); Mean Corpuscular Hemoglobin 26.9 pg (27.0-33.0); Mean Corpuscular Volume 81.3 fL (80.0-98.0); Mean Platelet Volume 9.4 fL (9.4-12.3); Monocytes Absolute Auto 0.7 X10*3/uL (0.1-1.2); Monocytes Percent Auto 8.6 % (2-11); Neutrophils Absolute Auto 4.6 x10*3/uL (2.0-8.3); Neutrophils Percent Auto 58.1 % (45-73); Platelet Count 337 X10*3/uL (160-400); Red Blood Count 4.39 X10*6/uL (4.20-5.50); Red Cell Distribution Width 14.2 % (11.0-16.0); Retic HGB Equivalent 31.9 pg (30.0-35.0); Reticulocyte Percent 1.4 % (0.5-1.8); Reticulocytes Absolute 0.061 X10*6/uL (0.026-0.095); White Blood Count 7.8 X10*3/uL (4.8-10.8)
[2022-09-16 08:02] LABS: Alanine Aminotransferase 12 U/L (0-31); Albumin Level 4.1 g/dL (3.5-5.0); Alkaline Phosphatase 70 U/L (39-117); Anion Gap 15 (12-20); Aspartate Amino Transferase 15 U/L (5-31); Bilirubin Total 0.7 mg/dL (0.0-1.0); Blood Urea Nitrogen 11 mg/dL (9-16); Calcium 9.3 mg/dL (8.4-10.2); Carbon Dioxide 22 mmol/L (22-29); Chloride 106 mmol/L (96-108); Cholesterol 211 mg/dL; Estimated Glomerular Filt Rate > 60; Glucose Random 87 mg/dL (60-115); HDL Cholesterol 69 mg/dL; Iron 99 mcg/dL (30-160); LDL Cholesterol Calculated 119 mg/dl; Percent Iron Saturation 19 % (15-50); Potassium 4.2 mmol/L (3.3-5.1); Sodium 139 mmol/L (135-145); Total Iron Binding Capacity 518 mcg/dL (228-428); Triglycerides 118 mg/dL; Unsaturated Iron Binding 419 ug/dL
[2022-09-16 08:25] LABS: Ferritin 7 ng/mL (10-122); Thyroid Stimulating Hormone 2.32 uIU/mL (0.32-4.0); Vitamin D 25-OH Total 20.9 ng/mL (>30)
[2022-09-16 09:10] LABS: Folate 16.2 ng/mL (> or = 4.0); Vitamin B12 861 pg/mL (200-900)
[2022-09-19 22:12] LABS: Lyme Abs Screen <0.90 index
== END 2022-09-16 06:29 | disposition home or self-care (01) ==
LOC: HO.LAB 06:28
PROVIDERS: PCP Internal Medicine; Visit Provider Internal Medicine
DX: D64.9 Anemia, unspecified (principal); F41.1 Generalized anxiety disorder; E53.8 Deficiency of other specified B group vitamins; E78.00 Pure hypercholesterolemia, unspecified; G57.90 Unspecified mononeuropathy of unspecified lower limb
CPT/HCPCS: 36415; 80053; 80061; 82306; 82607; 82728; 82746; 83540; 84439; 84443; 85025; 85045; 86617; 86618

== ENCOUNTER 2022-10-18 13:40 | Emergency (ER) | payer OTHER, SELFPAY ==
--- NOTE | 2022-10-18 14:27 | ED_ITS ---
HPI - General Adult General Chief complaint: Upper Respiratory Symptoms Stated complaint: SOB/Cough Source: patient Mode of arrival: ambulatory History of Present Illness HPI narrative: See course Section Related Data Home Medications Medication Instructions Recorded Confirmed pantoprazole 20 mg tablet,delayed 20 mg PO QAM 07/21/22 09/19/22 release Previous Rx's Medication Instructions Recorded desogestrel 0.15 mg-ethinyl 1 tab PO DAILY 28 days #28 tabs 01/13/22 estradiol 0.03 mg tablet (Apri) levothyroxine 75 mcg tablet 75 mcg PO DAILY 90 days #90 tabs 05/17/22 cyanocobalamin (vitamin B-12) 1,000 mcg PO DAILY #90 caps 08/15/22 1,000 mcg capsule ascorbate calcium (vitamin C) 500 500 mg PO DAILY #30 tabs 09/16/22 mg tablet ferrous sulfate 325 mg (65 mg 325 mg PO DAILY 90 days #90 tabs 09/16/22 iron) tablet (Feosol) cholecalciferol (vitamin D3) 50 50 mcg PO DAILY 90 days #90 caps 09/19/22 mcg (2,000 unit) capsule cyclobenzaprine 5 mg tablet 5 mg PO BEDTIME PRN muscle spasm 10/10/22 #30 tabs paroxetine HCl 10 mg tablet 10 mg PO BEDTIME #90 tabs 10/14/22 Allergies Allergy/AdvReac Type Severity Reaction Status Date / Time hydromorphone [Dilaudid] Allergy Intermediate sob Verified 09/19/22 17:01 itching, vomiting metronidazole Allergy Intermediate Mood Swings Verified 09/19/22 17:01 codeine [CODEINE] AdvReac Intermediate N/V Verified 09/19/22 17:01 Review of Systems Review of Systems: See course Section PMF Past Medical History Source: nursing notes reviewed Medical History Annual physical exam Annual physical exam Anxiety Esophageal stricture Foot pain, left Foot pain, right GERD (gastroesophageal reflux disease) GERD with stricture History of Graves' disease Hypothyroidism Intussusception Leg swelling Mild asthma Muscle spasm Pain of right middle finger Pancreatitis Psoriasis Rectal bleeding Rectal bleeding Renal calculus, right UTI (urinary tract infection) UTI (urinary tract infection) Vaginal discharge Vitamin B12 deficiency Vitamin D deficiency Well woman exam Surgical History H/O radioactive iodine thyroid ablation History of biopsy History of endoscopy History of nasal cauterization History of nasal surgery History of surgery History of tonsillectomy History of wisdom tooth extraction Hx of colonoscopy Family History Family History Father Elevated cholesterol Neuropathy Throat cancer Mother Raynauds syndrome Cervical cancer Sister Cervical cancer Paternal Grandmother Heart problem Maternal Grandmother Lung cancer Paternal Grandfather Thyroid cancer Social History Social History Household Members: Family Housing: House Are you a primary hospice home care coordinator to a significant other at home: No Do you presently have visiting nurse or other home services: No Alcohol intake: current Alcohol intake frequency: holidays/special occasions only Patient Tobacco Use Status: Never used Tobacco e-Cigarette/Vaping Use: Never Used Second Hand Smoke Exposure: Yes (Parents are smokers) service: No Current occupational status: employed 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 VS Reviewed GEN: NAD EARS: wnl THROAT: wnl LUNGS: CTAB CVS: RRR ABD: NT/ND I reviewed all investigations, patient is afebrile, not tachypneic, and oxygenating well on room air. Patient is otherwise discharge and suspect that she is experiencing residual viral symptoms. No evidence to suggest pneumonia. Discharge Plan Discharge Clinical Impression: Viral syndrome Patient Disposition: Home, Self-Care Instructions: Viral Syndrome (ED) Additional Instructions: 1. Recommend that patient use [id number] Tylenol/ibuprofen as well as cough medication. All your testing was negative at this time there is no evidence to suggest pneumonia. 2. Follow-up with your primary care provider. Return to the ER for worsening symptoms. Prescriptions: No Action desogestrel-ethinyl estradiol [Apri] 0.15-0.03 mg tablet 1 tab PO DAILY 28 Days Qty: 28 11RF levothyroxine 75 mcg tablet 75 mcg PO DAILY 90 Days Qty: 90 2RF cyanocobalamin (vitamin B-12) 1,000 mcg capsule 1,000 mcg PO DAILY Qty: 90 3RF ferrous sulfate [Feosol] 325 mg (65 mg iron) tablet 325 mg PO DAILY 90 Days Qty: 90 1RF ascorbate calcium (vitamin C) 500 mg tablet 500 mg PO DAILY Qty: 30 4RF cyclobenzaprine 5 mg tablet 5 mg PO BEDTIME PRN (Reason: muscle spasm) Qty: 30 2RF paroxetine HCl 10 mg tablet 10 mg PO BEDTIME Qty: 90 2RF cholecalciferol (vitamin D3) 50 mcg (2,000 unit) capsule 50 mcg PO DAILY 90 Days Qty: 90 3RF pantoprazole 20 mg tablet,delayed release (DR/EC) 20 mg PO QAM Referrals: Po,Aniket Churchill MD [Primary Care Provider] - Stand Alone Forms: Work/School Release
[2022-10-18 14:28] VITALS: BP 114/69; PULSE 84; RESP 16; TEMP 36.4; O2SAT 99; BMI 25.4
[2022-10-18 15:04] LABS: COVID-19 Test Negative (Negative); IDNOW Serial# 16C4AD1C; IDNOW Serial# BCCEAD1C; Influenza A Negative (Negative); Influenza B2 Negative (Negative)
== END 2022-10-18 16:54 | disposition home or self-care (01) ==
PROVIDERS: Emergency Provider Student in an Organized Health Care Education/Training Program; PCP Internal Medicine
DX: B34.9 Viral infection, unspecified (principal); R06.02 Shortness of breath; R05.9 Cough, unspecified; Z20.822 Contact with and (suspected) exposure to COVID-19
CPT/HCPCS: 87502; 87635; 99282; 99283

== ENCOUNTER 2022-10-19 16:27 | Outpatient (REF) | payer OTHER, SELFPAY ==
--- NOTE | ~2022-10-19 | XR_ITS ---
EXAMINATION: XR CHEST CLINICAL INFORMATION: Bronchitis and cough. COMPARISON: None TECHNIQUE: 2 views of the chest were obtained. FINDINGS: Normal appearance of the cardiomediastinal silhouette. No focal airspace opacity, pleural effusion or pneumothorax. No acute osseous abnormalities. The visualized upper abdomen is within normal limits. XR/XR chest 2V IMPRESSION: No acute cardiopulmonary findings.
== END 2022-10-19 16:28 | disposition home or self-care (01) ==
LOC: HO.XRAY 16:27
PROVIDERS: PCP Internal Medicine; Visit Provider Physician Assistant
DX: J40 Bronchitis, not specified as acute or chronic (principal)
CPT/HCPCS: 71046

== ENCOUNTER 2022-11-22 14:56 | Outpatient (REF) | payer OTHER, SELFPAY ==
[2022-11-23 09:32] LABS: CT PCR NOT DETECTED (Not Detect.); NG PCR NOT DETECTED (Not Detect.)
[2022-11-23 10:02] LABS: BV Int Neg Control Negative (Negative); BV Int Pos Control Positive (Positive)
== END 2022-11-22 14:57 | disposition home or self-care (01) ==
LOC: HO.LNP 14:56
PROVIDERS: PCP Internal Medicine; Visit Provider Advanced Practice Midwife
DX: Z12.4 Encounter for screening for malignant neoplasm of cervix (principal); Z11.3 Encounter for screening for infections with a predominantly sexual mode of transmission
CPT/HCPCS: 0353U; 87480; 87510; 87660; 88142

== ENCOUNTER 2023-01-31 16:38 | Outpatient (REF) | payer OTHER, SELFPAY ==
--- NOTE | ~2023-01-31 | XR_ITS ---
EXAMINATION: XR RIBS, LEFT CLINICAL INFORMATION: Dorsalgia COMPARISON: None available. TECHNIQUE: 3 views of the left ribs were obtained. FINDINGS: Lungs are clear. No consolidation, pneumothorax, or pleural effusion. The cardiomediastinal silhouette and pulmonary vasculature are normal. Osseous structures are unremarkable. Ribs are intact. No fractures are identified. XR/XR ribs LT 2V IMPRESSION: Unremarkable examination.
--- NOTE | ~2023-01-31 | XR_ITS ---
EXAMINATION: XR CHEST CLINICAL INFORMATION: Dorsalgia COMPARISON: Chest x-ray on 10/19/2022 TECHNIQUE: 2 views of the chest were obtained. FINDINGS: No significant abnormality is noted involving the heart, lungs, mediastinum, bony thorax or soft tissues. XR/XR chest 2V IMPRESSION: Unremarkable examination.
== END 2023-01-31 16:39 | disposition home or self-care (01) ==
LOC: HO.XRAY 16:38
PROVIDERS: PCP Internal Medicine; Visit Provider Internal Medicine
DX: M54.9 Dorsalgia, unspecified (principal)
CPT/HCPCS: 71046; 71100

== ENCOUNTER 2023-03-31 14:23 | Outpatient (REF) | payer OTHER, SELFPAY ==
[2023-03-31 16:22] LABS: Magnesium 1.9 mg/dL (1.6-2.6)
[2023-03-31 16:51] LABS: Folate 17.6 ng/mL (> or = 4.0); Free T4 (Free Thyroxine) 0.94 ng/dL (0.71-1.85); Vitamin B12 1080 pg/mL (200-900)
== END 2023-03-31 14:24 | disposition home or self-care (01) ==
LOC: HO.LAB 14:23
PROVIDERS: PCP Internal Medicine; Visit Provider Internal Medicine
DX: E03.9 Hypothyroidism, unspecified (principal)
CPT/HCPCS: 36415; 82607; 82746; 83735; 84439; 84443

== ENCOUNTER 2023-05-03 17:00 | Outpatient (RCR) | payer OTHER, SELFPAY ==
--- NOTE | 2023-03-15 17:55 | MHC.PT.EP ---
[facility] [place] Office [place] Office [place] Office [address] Nevin Nieves [address] [phone] F: [phone] F: [phone] F: [phone] F: [phone] Physical Therapy Plan of Care Date of Evaluation: Date of Surgery: N/A Diagnosis: dorsalgia (RC) Assessment: pt is a 27 y/o female presenting to physical therapy w/ referring diagnosis of M54.9 dorsalgia. pt's signs and symptoms consistent w/ weakness of periscapular musculature as well as poor habitual posturing. Impairments include pain, decreased range of motion, decreased strength, impaired functional mobility, impaired postural awareness, and altered ambulation mechanics. pt is a good candidate for skilled PT due to age, potential remediation of impairments, typical disease/condition progression and prognosis, comorbidities, and motivation. pt would benefit from skilled PT intervention to provide a tailored strengthening and stretching exercise program, functional training, gait training, postural re-training, neuromuscular re-education, modalities as needed for pain, equipment safety demonstration. Frequency and Duration: The patient will be seen 2x/wk for 4 wks Short Term Goals: pt will be I w/ HEP to promote self-management of condition. pt will demo proper sitting posture w/ lumbar roll to promote neutral spine w/ seated ADLs. Ice [employer] Associate Goals: pt will improve B rhomboid/middle trap strength to at least 4/5 to promote neutral spine posture. 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 Treatment Plan: Modalities to reduce pain, spasms and effusion. Manual therapy to restore motion and function. Therapeutic exercise to improve strength and flexibility. Neuromuscular re-education for posture and balance. Therapeutic activities to return to functional activities of daily living. Electronically signed by: Aysha Jensen PT, DPT Please sign and return to therapist. Thank you for your referral.
--- NOTE | 2023-05-18 10:23 | MHC.PT.DC ---
[facility] [place] Office [place] Office [place] Office [address] Nevin Nieves [address] [facility] [phone] F: [phone] F: [phone] F: [phone] F: [phone] Physical Therapy Discharge Report Diagnosis: dorsalgia (RC) Date of Surgery: N/A Date of Evaluation: 03/15/23 Date of Discharge: 05/18/23 Treatments to Date: 8 Cancellations to Date: 1 No Shows to Date: 0 Discharge Status: Recommend MD Follow-up Discharge Summary: The patient overall stated she has not noticed much change in regards to her symptoms. Clinically, I do feel she is still weak in her arms, upper back and core. She was encouraged to continue strengthening and to trial massage therapy. I do not think she is appropriate for a chiropractor as she is weak and may develop instability with frequent manipulations. She is independent with her home exercise program and is discharged from this physical therapy plan of care. Electronically signed by: Aysha Stevens PT, DPT Please sign and return to therapist. Thank you for your referral.
== END 2023-05-18 10:23 | disposition home or self-care (01) ==
LOC: HO.PT 17:00
PROVIDERS: PCP Internal Medicine; Visit Provider Internal Medicine
DX: M54.9 Dorsalgia, unspecified (principal)
CPT/HCPCS: 97110; 97112; 97140; 97162

== ENCOUNTER 2023-06-12 17:33 | Outpatient (AMB) | payer OTHER, SELFPAY ==
[2023-06-12 17:36] VITALS: BP 118/72; PULSE 85; O2SAT 98; BMI 25.1
--- NOTE | 2023-06-12 17:36 | A.OFFPC_ITS ---
Vital Signs 06/12/23 17:36 Height 5 ft 1 in Weight 133 lb BMI 25.1 BP 118/72 Blood Pressure Location Lt brachial Position Sitting Pulse 85 Pulse Source Pulse Oximeter Pulse Oximetry (%) 98 Oxygen Delivery Method Room Air Intake Visit Reasons: Annual Physical Allergies hydromorphone [Dilaudid] Allergy (Intermediate, Verified 06/12/23 17:37) sob itching, vomiting metronidazole Allergy (Intermediate, Verified 06/12/23 17:37) Mood Swings codeine [CODEINE] Adverse Reaction (Intermediate, Verified 06/12/23 17:37) N/V Medication List - Last Reconciled 06/12/23 by Aniket Gonzalez MD alclometasone 0.05% appl topical BID PRN ascorbate calcium (vitamin C) 500 mg PO DAILY betamethasone dipropionate 0.05% appl topical calcipotriene 0.005% appl topical cholecalciferol (vitamin D3) 50 mcg PO DAILY 90 days cyanocobalamin (vitamin B-12) 1,000 mcg PO DAILY cyclobenzaprine 5 mg PO BEDTIME PRN desogestrel-ethinyl estradiol 0.15-0.03 mg (Apri) 1 tab PO DAILY 84 days ferrous sulfate (Feosol) 325 mg PO DAILY 90 days levothyroxine 75 mcg PO DAILY 90 days pantoprazole 20 mg PO QAM paroxetine HCl 10 mg PO BEDTIME Tobacco use date assessed: 01/30/23 Dental Screening Dental Screen Date: 06/12/23 Did you have a dental visit in the last 12 months?: Yes Did you have a dental problem in the last 6 months where you did not have access to dental care?: No Was dental information given to patient?: Patient has dentist HPI Annual Physical HPI Details 28-year-old female with a history of constipation hypothyroidism and iron deficiency anemia last seen in January 2023 patient is here for physical exam. Had some back pain and went for physical therapy. [facility] Medical History (Updated 06/12/23 @ 18:01 by Aniket Gonzalez MD) Annual physical exam Anxiety Constipation Esophageal stricture Foot pain, right GERD (gastroesophageal reflux disease) History of Graves' disease Hypothyroidism Intussusception Leg swelling Mild asthma Muscle spasm Pain of right middle finger Pancreatitis Psoriasis Rectal bleeding Renal calculus, right UTI (urinary tract infection) Vaginal discharge Vitamin B12 deficiency Vitamin D deficiency Well woman exam Surgical History H/O radioactive iodine thyroid ablation History of biopsy History of endoscopy History of nasal cauterization History of nasal surgery History of surgery History of tonsillectomy History of wisdom tooth extraction Hx of colonoscopy Family History (Updated 06/12/23 @ 18:05 by Aniket Gonzalez MD) Father Elevated cholesterol Neuropathy Throat cancer Mother Raynauds syndrome Cervical cancer Sister Cervical cancer Paternal Grandmother Heart problem Heart attack Maternal Grandmother Lung cancer Paternal Grandfather Thyroid cancer Social History (Updated 06/12/23 @ 18:05 by Aniket Gonzalez MD) Household Members: Family Housing: House Are you a primary rn acute care to a significant other at home: No Do you presently have visiting nurse or other home services: No Alcohol intake: current Alcohol intake frequency: holidays/special occasions only Patient Tobacco Use Status: Never used Tobacco e-Cigarette/Vaping Use: Never Used Second Hand Smoke Exposure: Yes (Parents are smokers) service: No Current occupational status: employed 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 1. Little interest or pleasure in doing things: not at all 2. Feeling down, depressed, or hopeless: not at all 3. Trouble falling or staying asleep, or sleeping too much: not at all 4. Feeling tired or having little energy: not at all 5. Poor appetite or overeating: not at all 6. Feeling bad about yourself - or that you are a failure or have let yourself or your family down: not at all 7. Trouble concentrating on things, such as reading the newspaper or watching television: not at all 8. Moving or speaking so slowly that other people could have noticed. Or the opposite - being so fidgety or restless that you have been moving around a lot more than usual: not at all 9. Thoughts that you would be better off or of hurting yourself in some way: not at all Total score: 0 Depression Screening Interpretation: Negative 40496 - PHQ-9 Billing: Yes Source: Developed by Drs. Bin Nuñez, Sha Chapman and colleagues, with an educational bessie from [employer]. Thrive Questionnaire Date Thrive assessed: 03/09/23 AUDIT C Alcohol Use Questionnaire (AUDIT-C) 1. How often do you have a drink containing alcohol?: Monthly or less 2. How many drinks containing alcohol do you have on a typical day when you are drinking?: 1 or 2 3. How often do you have six or more drinks on one occasion?: Never Total Score: 1 RAPHAEL-7 AMB Questionnaire RAHPAEL-7 Date RAPHAEL - 7 assessed: 03/09/23 Source: Developed by Drs. Bin Nuñez, Sha Chapman and colleagues, with an educational bessie from [employer]. Review of Systems Const Denies poor appetite and Denies weakness Eyes Denies no additional complaints ENT Reports Normal hearing present, Denies dizziness, Denies nasal congestion, Denies tinnitus and Denies sore throat Card Denies chest pain, Denies syncope, Denies rapid heart rate and Denies dyspnea Resp Denies cough and Denies dyspnea GI Denies change in stool character, Reports constipation, Denies diarrhea, Denies nausea and Denies vomiting Denies urinary frequency, Denies difficulty voiding and Denies dysuria Neuro Reports Normal hearing present, Denies confusion, Denies dizziness, Denies syncope and Denies weakness Psych Denies confusion Physical exam (Primary Care) Vital Signs: Last Vital Signs Pulse 85 06/12/23 17:36 BP 118/72 06/12/23 17:36 Pulse Ox 98 06/12/23 17:36 Oxygen Delivery Method Room Air 06/12/23 17:36 BMI result Body Mass Index 25.1 Tobacco/Smoking Status: Tobacco use Status Tobacco use date assessed 01/30/23 06/12/23 17:40 Patient Tobacco Use Status Never used Tobacco 06/12/23 17:40 e-Cigarette/Vaping Use Never Used 06/12/23 17:40 PHQ-9: PHQ-9 Score PHQ-9: Total score 0 06/12/23 17:40 Depression Screening Interpretation: Negative Thrive Assessment: Date of Thrive Assessment Date Thrive assessed 03/09/23 06/12/23 17:40 Const General: No confusion Orientation/consciousness: No confusion HENMT Head: Yes normocephalic Ears: external ears normal and TM's normal bilaterally Face and sinus: Yes normal facial exam Mouth: moist mucous membranes Throat: Yes tonsils normal Eyes Conjunctivae: conjunctivae normal Pupils: Equal, round and reactive pupils present and Pupil accommodation reflex normal Direct Ophthalmoscopy: normal light reflex Neck Neck: No lymphadenopathy Thyroid: Thyroid normal Chest Chest palpation & inspection: normal inspection of the chest Resp Effort & Inspection: normal respiratory effort and no audible wheezes Auscultation: clear to auscultation bilaterally, no crackles, no wheezes and lung sounds not diminished Cardio Rate: regular rate Rhythm: regular rhythm Peripheral pulses: radial pulses present and dorsalis pedis present GI Palpation (GI): no masses Auscultation: normal bowel sounds and normoactive bowel sounds Rectal Exam - Female: deferred Skin General skin exam: no rashes or lesions noted Rashes: no rashes Neuro General: No confusion Cranial nerves: Yes Equal, round and reactive pupils present and Yes Normal hearing present Cognition (Neuro): normal cognition Gait exam (Neuro): Normal gait present Motor exam (neuro): 5/5 motor strength present throughout Deep tendon reflexes (DTR's): Right brachioradialis reflex intensity grade: 2+, Left brachioradialis reflex intensity grade: 2+, Right patellar reflex intensity grade: 2+ and Left patellar reflex intensity grade: 2+ Extrem General: No edema Assessment and Plan Assessment & Plan (1) Annual physical exam: Code(s): Z00.00 - Encounter for general adult medical examination without abnormal findings (2) Constipation: Code(s): K59.00 - Constipation, unspecified Plan: Three rules for constipation 1. Diet need to have a high fiber diet less of meat 2. Increase oral fluids 3. Exercise (3) Iron deficiency anemia: Code(s): D50.9 - Iron deficiency anemia, unspecified Plan: iron replacement with vitamin-C (4) Generalized anxiety disorder: Comment: Patient has seen [facility] and declined referral this time; see note 11/22/21-mo'b Code(s): F41.1 - Generalized anxiety disorder Plan: continue with paroxetine 10 mg once a day (5) GERD (gastroesophageal reflux disease): Comment: EGD June 2020 Code(s): K21.9 - Gastro-esophageal reflux disease without esophagitis Qualifiers: Esophagitis presence: without esophagitis Qualified Code(s): K21.9 - Gastro-esophageal reflux disease without esophagitis Plan: Avoid the foods that causes that usually spicy foods, tomato products, juices, coffee, soda and foods that your sensitive to. After eating do not lie down, allow 3-4 hours before in lie down. And keep the head of bed above 30 degrees to avoid the acid from going up. (6) Hypothyroidism: Comment: post ablative Code(s): E03.9 - Hypothyroidism, unspecified Qualifiers: Hypothyroidism type: acquired Qualified Code(s): E03.9 - Hypothyroidism, unspecified Plan: Continue with thyroid medication Orders: Orders ABO RH Type Today D50.9 - Iron deficiency anemia, unspecified Vitamin B12 and Folate Today D50.9 - Iron deficiency anemia, unspecified Comprehensive Met. Panel Today D50.9 - Iron deficiency anemia, unspecified Ferritin Today D50.9 - Iron deficiency anemia, unspecified IRON PROFILE Today D50.9 - Iron deficiency anemia, unspecified Free T4 (Free Thyroxine) Today D50.9 - Iron deficiency anemia, unspecified Thyroid Stimulating Hormone Today D50.9 - Iron deficiency anemia, unspecified Complete Blood Count Auto Diff Today D50.9 - Iron deficiency anemia, unspecified Reticulocyte Count Today D50.9 - Iron deficiency anemia, unspecified Coding Level of Care Code Est Pt Prev Care [id number]) Diagnoses Annual physical exam Z00.00 Constipation K59.00 Iron deficiency anemia D50.9 Generalized anxiety disorder F41.1 GERD (gastroesophageal reflux disease) K21.9 Esophagitis presence: without esophagitis Hypothyroidism E03.9 Hypothyroidism type: acquired
== END 2023-06-12 18:21 | disposition home or self-care (01) ==
PROVIDERS: PCP Internal Medicine; Visit Provider Internal Medicine
DX: Z00.00 Encounter for general adult medical examination without abnormal findings (principal); K21.9 Gastro-esophageal reflux disease without esophagitis; E03.9 Hypothyroidism, unspecified; K59.00 Constipation, unspecified; D50.9 Iron deficiency anemia, unspecified; F41.1 Generalized anxiety disorder
CPT/HCPCS: 99395

== ENCOUNTER 2023-08-04 16:18 | Outpatient (REF) | payer OTHER, SELFPAY ==
[2023-08-04 16:33] LABS: MANUAL DIFF FLAG NO
[2023-08-04 16:43] LABS: Basophils Percent Auto 0.3 % (0-2); Eosinophils Absolute Auto 0.1 X10*3/uL (0.0-0.4); Eosinophils Percent Auto 0.9 % (0-4); Hematocrit 39.2 % (37.0-47.0); Hemoglobin 13.2 g/dl (12.0-16.0); Imm Gran Abs Auto 0.02 X10*3/uL (0.00-0.03); Imm Gran Pct Auto 0.3 % (0.0-0.4); Lymphocytes Percent Auto 25.8 % (20-40); Mean Corpuscular HGB Conc 33.7 g/dl (31.0-35.0); Mean Corpuscular Hemoglobin 29.7 pg (27.0-33.0); Mean Corpuscular Volume 88.3 fL (80.0-98.0); Mean Platelet Volume 9.1 fL (9.4-12.3); Monocytes Absolute Auto 0.6 X10*3/uL (0.1-1.2); Monocytes Percent Auto 7.2 % (2-11); Neutrophils Absolute Auto 5.1 x10*3/uL (2.0-8.3); Neutrophils Percent Auto 65.5 % (45-73); Platelet Count 294 X10*3/uL (160-400); Red Blood Count 4.44 X10*6/uL (4.20-5.50); Red Cell Distribution Width 12.6 % (11.0-16.0); Retic HGB Equivalent 34.3 pg (30.0-35.0); Reticulocyte Percent 1.7 % (0.5-1.8); Reticulocytes Absolute 0.075 X10*6/uL (0.026-0.095); White Blood Count 7.8 X10*3/uL (4.8-10.8)
[2023-08-04 17:13] LABS: Alanine Aminotransferase 14 U/L (0-31); Albumin Level 4.3 g/dL (3.5-5.0); Alkaline Phosphatase 66 U/L (39-117); Anion Gap 14 (12-20); Aspartate Amino Transferase 16 U/L (5-31); Bilirubin Total 0.3 mg/dL (0.0-1.0); Blood Urea Nitrogen 11 mg/dL (9-16); Calcium 9.6 mg/dL (8.4-10.2); Carbon Dioxide 22 mmol/L (22-29); Chloride 109 mmol/L (96-108); Estimated Glomerular Filt Rate > 60; Glucose Random 110 mg/dL (60-115); Iron 39 mcg/dL (30-160); Percent Iron Saturation 12 % (15-50); Potassium 4.3 mmol/L (3.3-5.1); Sodium 141 mmol/L (135-145); Total Iron Binding Capacity 331 mcg/dL (228-428); Total Protein 7.4 g/dL (6.5-8.0); Unsaturated Iron Binding 292 ug/dL
[2023-08-04 17:17] LABS: Appearance Urine Clear; Color Urine Yellow; Glucose Urine UA Negative (Negative); Leukocyte Esterase Urine Trace (Negative); Nitrite Urine Negative (Negative); PH 5.5 (5.0-9.0); Specific Gravity - Urine 1.025 (1.005-1.025); UMIC TRIGGER UA YES; Urine Blood Large (3+) (Negative); Urine Ketones Negative (Negative); Urine Protein Negative (Neg-Trace)
[2023-08-04 17:32] LABS: Ferritin 66 ng/mL (10-122); Free T4 (Free Thyroxine) 0.85 ng/dL (0.71-1.85); Thyroid Stimulating Hormone 1.44 uIU/mL (0.32-4.0)
[2023-08-04 17:44] LABS: Folate 15.1 ng/mL (> or = 4.0); Vitamin B12 1265 pg/mL (200-900)
[2023-08-04 18:24] LABS: Bacteria Urine None Seen (None Seen); Hyaline Casts Urine 0-2 /LPF (0-2); RBC Urine >20 /HPF (0-2); Squamous Epithelial Cell Urine 0-2 /HPF (0-2); WBC Urine 0-5 /HPF (0-5)
== END 2023-08-04 16:19 | disposition home or self-care (01) ==
LOC: HO.LAB 16:18
PROVIDERS: PCP Internal Medicine; Visit Provider Internal Medicine
DX: D50.9 Iron deficiency anemia, unspecified (principal); R10.9 Unspecified abdominal pain
CPT/HCPCS: 36415; 80053; 81001; 82607; 82728; 82746; 83540; 84439; 84443; 85025; 85045; 86900; 86901

== ENCOUNTER 2023-09-01 16:28 | Outpatient (REF) | payer OTHER, SELFPAY ==
--- NOTE | ~2023-09-01 | US_ITS ---
EXAMINATION: US RETROPERITONEAL LIMITED (RENAL ONLY) CLINICAL INFORMATION: Hematuria, unspecified. COMPARISON: CT enterography abdomen and pelvis 04/23/2021. MRI abdomen 07/09/2020. Ultrasound abdomen complete 07/13/2019 and 10/04/2017. TECHNIQUE: Real-time imaging of the kidneysLimited visualization due to bowel gas. FINDINGS: RIGHT KIDNEY: 10.0 x 3.2 x 5.3 cm (SAG x AP x TRV). No hydronephrosis. No renal calculi. Renal cortical thickness is normal. Limited visualization. LEFT KIDNEY: 9.5 x 3.8 x 4.0 cm (SAG x AP x TRV). No hydronephrosis. No renal calculi. Renal cortical thickness is normal. Limited visualization. US/US renal BI IMPRESSION: No hydronephrosis. No renal calculi. Limited visualization. CT scan should be considered for further evaluation.
== END 2023-09-01 16:29 | disposition home or self-care (01) ==
LOC: HO.US 16:28
PROVIDERS: PCP Internal Medicine; Visit Provider Internal Medicine
DX: R10.9 Unspecified abdominal pain (principal); R31.9 Hematuria, unspecified
CPT/HCPCS: 76775

== ENCOUNTER 2023-10-19 10:43 | Outpatient (AMB) | payer OTHER, SELFPAY ==
[2023-10-19 10:48] VITALS: BP 108/70; PULSE 70; O2SAT 99; BMI 23.8
--- NOTE | 2023-10-19 10:48 | MHC.PC.OV ---
Vital Signs 10/19/23 10:48 Height 5 ft 1 in Weight 126 lb 2 oz BMI 23.8 BP 108/70 Blood Pressure Location Lt brachial Position Sitting Pulse 70 Pulse Source Pulse Oximeter Pulse Oximetry (%) 99 Oxygen Delivery Method Room Air Intake Visit Reasons: itchy Intake Note: The patient has been experiencing rectal itchiness for over a week and is inquiring about the possibility of hemorrhoids. They are requesting a cream or antibiotic for relief. Pesticide Chemist Required: No Accompanied by: Self / Same As Patient Allergies hydromorphone [Dilaudid] Allergy (Intermediate, Verified 10/19/23 10:59) sob itching, vomiting metronidazole Allergy (Intermediate, Verified 10/19/23 10:59) Mood Swings codeine [CODEINE] Adverse Reaction (Intermediate, Verified 10/19/23 10:59) N/V Medication List - Last Reconciled 10/19/23 by Dennis Travis PA-C alclometasone 0.05% appl topical BID PRN ascorbate calcium (vitamin C) 500 mg PO DAILY betamethasone dipropionate 0.05% appl topical calcipotriene 0.005% appl topical cholecalciferol (vitamin D3) 50 mcg PO DAILY 90 days cyanocobalamin (vitamin B-12) 1,000 mcg PO DAILY cyclobenzaprine 5 mg PO BEDTIME PRN desogestrel-ethinyl estradiol 0.15-0.03 mg (Apri) 1 tab PO DAILY 84 days ferrous sulfate (Feosol) 325 mg PO DAILY 90 days levothyroxine 75 mcg PO DAILY 90 days pantoprazole 20 mg PO QAM paroxetine HCl 10 mg PO BEDTIME Tobacco use date assessed: 01/30/23 HPI itchy HPI Details Patient is a 20-year-old female here today for a problem visit. reports recently having a UTI Has been having rectal itchiness, using [id number] ointment though has not been effective. She does report trying to apply this women with Q-tips though has been causing her self rectal pain. She does report some pinkish reddish blood when she does pass stool. She otherwise denies any change in her stool consistency or color. No abdominal pain noted. She has had a colonoscopy in 01/2021 that did show internal hemorrhoids and non specific colitis, with micro-abscesses and granularity, worse in cecum and rectum . Biopsy taken showing mild active colitis at the time. She also has psoriasis to which she has seen a junior software engineer for. She does have several different creams to use on her skin and face. Advised on antihistamine for skin breakouts and spot topical steroid treatments for skin lesions. [facility] Medical History (Updated 10/19/23 @ 11:01 by Dennis Travis PA-C) Annual physical exam Foot pain, right Pain of right middle finger Leg swelling Muscle spasm Vitamin B12 deficiency Rectal bleeding Vaginal discharge Well woman exam UTI (urinary tract infection) Constipation Vitamin D deficiency History of Graves' disease Renal calculus, right Pancreatitis Intussusception Psoriasis Mild asthma Anxiety Esophageal stricture GERD (gastroesophageal reflux disease) Hypothyroidism Surgical History H/O radioactive iodine thyroid ablation Hx of colonoscopy History of surgery History of nasal surgery History of biopsy History of nasal cauterization History of wisdom tooth extraction History of endoscopy History of tonsillectomy Family History Father Elevated cholesterol Neuropathy Throat cancer Mother Raynauds syndrome Cervical cancer Sister Cervical cancer Paternal Grandmother Heart problem Heart attack Maternal Grandmother Lung cancer Paternal Grandfather Thyroid cancer Social History Household Members: Family Housing: House Are you a primary career guidance counselor to a significant other at home: No Do you presently have visiting nurse or other home services: No Alcohol intake: current Alcohol intake frequency: holidays/special occasions only Patient Tobacco Use Status: Never used Tobacco e-Cigarette/Vaping Use: Never Used Second Hand Smoke Exposure: Yes (Parents are smokers) service: No Current occupational status: employed 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 Bin Nuñez, Mell Cassidy, Sha Roblero and colleagues, with an educational bessie from [employer]. Review of Systems Const Denies headache(s) Eyes Denies loss of vision ENT Denies vertigo, Denies dizziness, Denies headache(s) and Denies sore throat Card Denies chest pain, Denies leg edema and Denies lightheadedness Resp Denies cough, Denies hemoptysis and Denies wheezing GI Denies abdominal pain, Denies melena, Denies constipation, Denies diarrhea and Denies vomiting Denies urinary frequency, Denies dysuria and Denies urinary urgency Musc Denies arthralgias, Denies joint swelling, Denies numbness and Denies tingling Neuro Denies Abnormal speech present, Denies behavioral changes, Denies vertigo, Denies dizziness, Denies headache(s), Denies loss of vision, Denies memory loss, Denies numbness and Denies tingling Psych Denies anxiety, Denies behavioral changes, Denies depression, Denies memory loss and Denies panic attacks Tacos/Lymph Denies easy bleeding and Denies easy bruising Aller/Immun Denies wheezing Physical exam (Primary Care) Vital Signs: Last Vital Signs Pulse 70 10/19/23 10:48 BP 108/70 10/19/23 10:48 Pulse Ox 99 10/19/23 10:48 Oxygen Delivery Method Room Air 10/19/23 10:48 BMI result Body Mass Index 23.8 Tobacco/Smoking Status: Tobacco use Status Tobacco use date assessed 01/30/23 10/19/23 10:55 Patient Tobacco Use Status Never used Tobacco 10/19/23 10:55 e-Cigarette/Vaping Use Never Used 10/19/23 10:55 Thrive Assessment: Date of Thrive Assessment Date Thrive assessed 03/09/23 10/19/23 10:55 Const General: healthy appearing, no acute distress, alert and awake Nutritional Appearance: well nourished Orientation/consciousness: oriented to person, oriented to place and oriented to time HENMT Ears: TM's normal bilaterally General nose exam: Normal nasal mucous membranes and turbinates present Eyes Conjunctivae: conjunctivae normal Sclerae: sclerae normal Pupils: Equal, round and reactive pupils present Neck Neck: Yes no lymphadenopathy and Yes no JVD Thyroid: Thyroid normal Carotids: no bruits Resp Effort & Inspection: normal respiratory effort and not tachypneic Auscultation: no crackles, no rales, no rhonchi and no wheezes Cardio Rate: regular rate Rhythm: regular rhythm Heart sounds: no murmurs and normal S1 and S2 GI Other: RECTAL EXAM DONE WITH THE PRESENCE OF A FEMALE SENIOR AIR DIRECTOR (NATY KENT Zana LANDEROS) --> NOTED EXCORIATIONS AND ANAL FISSURES Palpation (GI): Soft to palpation, nontender, no hepatomegaly and no splenomegaly Auscultation: normal bowel sounds Rectal Exam - Female: Excoriation present (GI) Skin General skin exam: no rashes or lesions noted and dry skin Neuro General: oriented to person, oriented to place and oriented to time Cranial nerves: Yes Equal, round and reactive pupils present Speech: No Abnormal speech present Gait exam (Neuro): Normal gait present Motor exam (neuro): no tremor noted Extrem Right upper extremity: full ROM Left upper extremity: full ROM Right lower extremity: full ROM; no edema Left lower extremity: full ROM; no edema Psych Mental Status: mental status grossly normal Speech and movement: Normal speech and movement present Affect: normal affect Attitude: cooperative Thought process: Normal thought process present Assessment and Plan Assessment & Plan (1) Rectal itching: Code(s): L29.0 - Pruritus ani Plan: As per HPI patient reports rectal itching and pain. Colonoscopy in 2020 showing mild active colitis worse in the rectum. Will supply patient with hydrocortisone rectal suppository. Advised on Sitz baths Will likely need follow-up with Gastroenterology if symptoms worsen for possible treatment of her ? Microscopic colitis. Otherwise reports normal bowel movements. Medications: New hydrocortisone 2.5% (Anusol-HC) 1 appl [place] BID 7 days PRN 30 grams 0RF hemorrhoids L29.0 - Pruritus ani hydroxyzine HCl 10 mg PO BEDTIME 20 days 20 tabs 0RF F41.9 - Anxiety disorder, unspecified, L29.0 - Pruritus ani Coding Level of Care Code Est Pt Level 4 (22358) Diagnoses Rectal itching L29.0
== END 2023-10-19 11:25 | disposition home or self-care (01) ==
PROVIDERS: PCP Internal Medicine; Visit Provider Physician Assistant
DX: L29.0 Pruritus ani (principal)
CPT/HCPCS: 99214

== ENCOUNTER 2023-12-11 17:04 | Outpatient (AMB) | payer OTHER, SELFPAY ==
[2023-12-11 17:06] VITALS: BP 110/78; PULSE 72; O2SAT 98; BMI 24.7
--- NOTE | 2023-12-11 17:06 | MHC.PC.OV ---
Vital Signs 12/11/23 17:06 Height 5 ft 1 in Weight 131 lb BMI 24.7 BP 110/78 Blood Pressure Location Lt brachial Position Sitting Pulse 72 Pulse Source Pulse Oximeter Pulse Oximetry (%) 98 Oxygen Delivery Method Room Air Intake Visit Reasons: 6 month f/u Library Science Professor Required: No Accompanied by: Self / Same As Patient Allergies hydromorphone [Dilaudid] Allergy (Intermediate, Verified 12/11/23 17:07) sob itching, vomiting metronidazole Allergy (Intermediate, Verified 12/11/23 17:07) Mood Swings codeine [CODEINE] Adverse Reaction (Intermediate, Verified 12/11/23 17:07) N/V Medication List - Last Reconciled 12/11/23 by Aniket Gonzalez, alclometasone 0.05% appl topical BID PRN ascorbate calcium (vitamin C) 500 mg PO DAILY betamethasone dipropionate 0.05% appl topical calcipotriene 0.005% appl topical cholecalciferol (vitamin D3) 50 mcg PO DAILY 90 days cyanocobalamin (vitamin B-12) 1,000 mcg PO DAILY cyclobenzaprine 5 mg PO BEDTIME PRN desogestrel-ethinyl estradiol 0.15-0.03 mg (Apri) 1 tab PO DAILY 84 days hydrocortisone 2.5% (Anusol-HC) 1 appl [place] BID PRN 7 days hydroxyzine HCl 10 mg PO BEDTIME 20 days levothyroxine 75 mcg PO DAILY 90 days pantoprazole 20 mg PO QAM paroxetine HCl 10 mg PO BEDTIME Tobacco use date assessed: 12/11/23 Dental Screening Dental Screen Date: 12/11/23 Did you have a dental visit in the last 12 months?: Yes Did you have a dental problem in the last 6 months where you did not have access to dental care?: No Was dental information given to patient?: Patient has dentist HPI 6 month f/u HPI Details 28-year-old female with a history of constipation iron deficiency anemia generalized anxiety disorder GERD hypothyroidism last seen in May 2023 patient is here for follow-up. October seen by the nurse practitioner for rectal itching patient was given hydrocortisone cream. Patient also has complained about blood in the urine and an ultrasound done revealing no hydronephrosis no renal calculi. rectal itching still a problem, cream does not help. , blood workwiping.. PAtient is on iron and gets very constipating- last blood work was normal blood count and so advised to stop iron. complains of sob on exertion, no cough PFSH Medical History (Updated 12/11/23 @ 17:50 by Aniket Gonzalez MD) Annual physical exam Foot pain, right Pain of right middle finger Leg swelling Muscle spasm Vitamin B12 deficiency Rectal bleeding Vaginal discharge Well woman exam UTI (urinary tract infection) Constipation Vitamin D deficiency History of Graves' disease Renal calculus, right Pancreatitis Intussusception Psoriasis Mild asthma Anxiety Esophageal stricture GERD (gastroesophageal reflux disease) Hypothyroidism Surgical History H/O radioactive iodine thyroid ablation Hx of colonoscopy History of surgery History of nasal surgery History of biopsy History of nasal cauterization History of wisdom tooth extraction History of endoscopy History of tonsillectomy Family History Father Elevated cholesterol Neuropathy Throat cancer Mother Raynauds syndrome Cervical cancer Sister Cervical cancer Paternal Grandmother Heart problem Heart attack Maternal Grandmother Lung cancer Paternal Grandfather Thyroid cancer Social History Household Members: Family Housing: House Are you a primary career center director to a significant other at home: No Do you presently have visiting nurse or other home services: No Alcohol intake: current Alcohol intake frequency: holidays/special occasions only Patient Tobacco Use Status: Never used Tobacco e-Cigarette/Vaping Use: Never Used Second Hand Smoke Exposure: Yes (Parents are smokers) service: No Current occupational status: employed 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 1. Little interest or pleasure in doing things: not at all 2. Feeling down, depressed, or hopeless: not at all 3. Trouble falling or staying asleep, or sleeping too much: not at all 4. Feeling tired or having little energy: not at all 5. Poor appetite or overeating: not at all 6. Feeling bad about yourself - or that you are a failure or have let yourself or your family down: not at all 7. Trouble concentrating on things, such as reading the newspaper or watching television: not at all 8. Moving or speaking so slowly that other people could have noticed. Or the opposite - being so fidgety or restless that you have been moving around a lot more than usual: not at all 9. Thoughts that you would be better off or of hurting yourself in some way: not at all Total score: 0 Depression Screening Interpretation: Negative Depression Screening Done: Yes 20984 - PHQ-9 Billing: Yes Source: Developed by Drs. Bin Nuñez, Mell Cassidy, Sha Roblero and colleagues, with an educational bessie from [employer]. Thrive Questionnaire Date Thrive assessed: 12/11/23 I am a: Patient What is your living situation today?: I have a steady place to live Within the past 12 months, did the food you bought not last and you didn't have the money to get more?: Never true Within the past 12 months, did you worry whether your food would run out before you got money to buy more?: Never true Do you have trouble paying for medicines?: No Do you have trouble getting transportation to medical appointments?: No Do you have trouble paying your heating and electricity bill?: No Do you have trouble taking care of your child, family member or friend?: No Do you have trouble with day-to-day activities such as bathing, preparing meals, shopping, managing finances, etc.?: No Are you currently unemployed and looking for a job?: No Are you interested in more education?: No Please select the resources that you would like help with: None Currently or been in a relationship where the following occur: no concerns reported THRIVE Score: 0 AUDIT C Alcohol Use Questionnaire (AUDIT-C) 1. How often do you have a drink containing alcohol?: Monthly or less 2. How many drinks containing alcohol do you have on a typical day when you are drinking?: 1 or 2 3. How often do you have six or more drinks on one occasion?: Never Total Score: 1 RAPHAEL-7 AMB Questionnaire RAPHAEL-7 Date RAPHAEL - 7 assessed: 12/11/23 Feeling nervous, anxious, or on edge: 0 = Not at all Not being able to stop or control worryin = Not at all Worrying too much about different things: 0 = Not at all Trouble relaxin = Not at all Being so restless that it is hard to sit still: 0 = Not at all Becoming easily annoyed or irritable: 0 = Not at all Feeling afraid as if something awful might happen: 0 = Not at all Total RAPHAEL-7 score (0-4 normal; 5-9 mild; 10-14 moderate; 15-21 severe): 0 Source: Developed by Drs. Bin Nuñez, Mell Cassidy, Sha Roblero and colleagues, with an educational bessie from [employer]. Physical exam (Primary Care) Vital Signs: Last Vital Signs Pulse 72 12/11/23 17:06 BP 110/78 12/11/23 17:06 Pulse Ox 98 12/11/23 17:06 Oxygen Delivery Method Room Air 12/11/23 17:06 BMI result Body Mass Index 24.7 Tobacco/Smoking Status: Tobacco use Status Tobacco use date assessed 12/11/23 12/11/23 17:08 Patient Tobacco Use Status Never used Tobacco 12/11/23 17:08 e-Cigarette/Vaping Use Never Used 12/11/23 17:08 PHQ-9: PHQ-9 Score PHQ-9: Total score 0 12/11/23 17:15 Depression Screening Interpretation: Negative Thrive Assessment: Date of Thrive Assessment Date Thrive assessed 12/11/23 12/11/23 17:08 Currently or been in a relationship where the following occur: no concerns reported Const General: alert; No acute distress Eyes Conjunctivae: conjunctivae normal Resp Auscultation: clear to auscultation bilaterally Cardio Rate: regular rate Rhythm: regular rhythm GI Inspection: Yes normal to inspection Extrem General: Yes normal to inspection and No edema Assessment and Plan Assessment & Plan (1) Hematuria: Code(s): R31.9 - Hematuria, unspecified Plan: Ultrasound done revealed negative results (2) Rectal itching: Code(s): L29.0 - Pruritus ani Plan: concern about constipation since on Iron- will stop iron for now . will do bloodwork (3) Constipation: Code(s): K59.00 - Constipation, unspecified Plan: Three rules for constipation 1. Diet need to have a high fiber diet less of meat 2. Increase oral fluids 3. Exercise (4) GERD (gastroesophageal reflux disease): Comment: EGD June 2020 Code(s): K21.9 - Gastro-esophageal reflux disease without esophagitis Qualifiers: Esophagitis presence: without esophagitis Qualified Code(s): K21.9 - Gastro-esophageal reflux disease without esophagitis Plan: Avoid the foods that causes that usually spicy foods, tomato products, juices, coffee, soda and foods that your sensitive to. After eating do not lie down, allow 3-4 hours before in lie down. And keep the head of bed above 30 degrees to avoid the acid from going up. (5) Hypothyroidism: Comment: post ablative Code(s): E03.9 - Hypothyroidism, unspecified Qualifiers: Hypothyroidism type: acquired Qualified Code(s): E03.9 - Hypothyroidism, unspecified Plan: Continue with thyroid medication (6) Generalized anxiety disorder: Comment: Patient has seen [facility] and declined referral this time; see note 11/22/21-mo'b Code(s): F41.1 - Generalized anxiety disorder Plan: Continue with therapy right now. (7) SOB (shortness of breath): Code(s): R06.02 - Shortness of breath Plan: blood work advised (8) Dysmenorrhea: Code(s): N94.6 - Dysmenorrhea, unspecified Plan: referral to gynecology (9) Cervical cancer screening: Comment: 11/22/2022 Pap is negative Code(s): Z12.4 - Encounter for screening for malignant neoplasm of cervix Plan: gynecology referral - Orders: Orders Comprehensive Met. 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 LOAN SPECIALIST Referral N94.6 - Dysmenorrhea, unspecified, Z12.4 - Encounter for screening for malignant neoplasm of cervix Medications: Discontinued ferrous sulfate (Feosol) Discontinued Reason: Doctor's Order 325 mg PO DAILY 90 days 90 tabs 1RF Coding Level of Care Code Est Pt Level 4 (99521) Diagnoses Hematuria R31.9 Rectal itching L29.0 Constipation K59.00 Gastroesophageal reflux disease without esophagitis K21.9 Esophagitis presence: without esophagitis Acquired hypothyroidism E03.9 Hypothyroidism type: acquired Generalized anxiety disorder F41.1 SOB (shortness of breath) R06.02 Dysmenorrhea N94.6 Cervical cancer screening Z12.4
== END 2023-12-11 17:59 | disposition home or self-care (01) ==
LOC: HO.HMGH 17:04
PROVIDERS: PCP Internal Medicine; Visit Provider Internal Medicine
DX: R31.9 Hematuria, unspecified (principal); L29.0 Pruritus ani; K59.00 Constipation, unspecified; K21.9 Gastro-esophageal reflux disease without esophagitis; E03.9 Hypothyroidism, unspecified; F41.1 Generalized anxiety disorder; R06.02 Shortness of breath; N94.6 Dysmenorrhea, unspecified; Z12.4 Encounter for screening for malignant neoplasm of cervix
CPT/HCPCS: 99214

== ENCOUNTER 2024-01-24 15:45 | Outpatient (AMB) | payer OTHER, SELFPAY ==
--- NOTE | 2024-01-24 15:57 | A.OFFVIS_ITS ---
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 No complaints. Last Pap smear was negative in 12/05 [facility] Medical History (Updated 01/24/24 @ 16:08 by David Newton MD) Well woman exam Annual physical exam Foot pain, right Pain of right middle finger Leg swelling Muscle spasm Vitamin B12 deficiency Rectal bleeding Vaginal discharge UTI (urinary tract infection) Constipation Vitamin D deficiency History of Graves' disease Renal calculus, right Pancreatitis Intussusception Psoriasis Mild asthma Anxiety Esophageal stricture GERD (gastroesophageal reflux disease) Hypothyroidism Surgical History H/O radioactive iodine thyroid ablation Hx of colonoscopy History of surgery History of nasal surgery History of biopsy History of nasal cauterization History of wisdom tooth extraction History of endoscopy History of tonsillectomy Family History Father Elevated cholesterol Neuropathy Throat cancer Mother Raynauds syndrome Cervical cancer Sister Cervical cancer Paternal Grandmother Heart problem Heart attack Maternal Grandmother Lung cancer Paternal Grandfather Thyroid cancer Social History Household Members: Family Housing: House Are you a primary summer child caregiver to a significant other at home: No Do you presently have visiting nurse or other home services: No Alcohol intake: current Alcohol intake frequency: holidays/special occasions only Patient Tobacco Use Status: Never used Tobacco e-Cigarette/Vaping Use: Never Used Second Hand Smoke Exposure: Yes (Parents are smokers) service: No Current occupational status: employed 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 Current occupational exposures/hazards: No Sexual orientation: Straight/Heterosexual Gender identity: Female Cognitive needs: No Hearing needs: No Vision needs: No Female Reproductive History Menstrual Age of Menarche: 13 Date of last menstrual period: 01/18/24 control method: pills Total pregnancies: 0 Date of last pap smear: 11/23/22 Review of Systems Const All systems reviewed & are unremarkable except as noted in HPI and below Card Reports as per HPI Resp Reports as per HPI GI Reports as per HPI and Reports no additional complaints Reports as per HPI Physical Exam Vital Signs: Last Vital Signs BP 108/60 01/24/24 15:58 BMI result Body Mass Index 23.2 Const General: cooperative, healthy appearing and comfortable Chest Chest palpation & inspection: normal inspection of the chest and normal palpation of entire chest wall Breast/axilla inspection: normal inspection of the breasts and normal inspection of the axillae Breast/axilla palpation: normal palpation of the breasts, normal palpation of the axillae and no axillary lymphadenopathy Resp Effort & Inspection: normal respiratory effort Auscultation: clear to auscultation bilaterally Percussion: percussion normal Cardio Palpation: normal PMI Rate: regular rate Rhythm: regular rhythm Heart sounds: no murmurs and no rubs Peripheral pulses: Peripheral pulses 2+ throughout GI Inspection: Yes normal to inspection Palpation (GI): Soft to palpation, nontender, no guarding, not rigid and No hepatosplenomegaly present Percussion: Yes normal to percussion Auscultation: normal bowel sounds Rectal Exam - Female: deferred General: Yes bladder normal to palpation External Female Exam: No lesion Speculum Exam - Vagina: normal appearance of the vagina, normal palpation, normal vaginal discharge and not erythematous Speculum Exam - Cervix: normal appearance of the cervix and normal palpation Bimanual exam- vagina & uterus: normal bimanual exam, normal palpation, uterine size normal, bladder normal to palpation, consistency normal and normal palpation Bimanual Exam- Adnexa, other: normal adnexae, no masses and no tenderness Assessment & Plan Assessment & Plan (1) Well woman exam: Code(s): Z01.419 - Encounter for gynecological examination (general) (routine) without abnormal findings Plan: Pap smear at indicated this year. Counseled the patient about the recommended dietary allowance of 1000 mg of Calcium & 600 IU of vitamin D. The patient was instructed to perform monthly self-breast exams , to call for any changes in menstrual patterns and to schedule an annual exam in a year; all questions answered and the patient verbalized understanding. Coding Level of Care Code Est Pt Prev Care 18-39y(37422) Diagnoses Well woman exam Z01.419
[2024-01-24 15:58] VITALS: BP 108/60; BMI 23.2
== END 2024-01-25 07:24 | disposition home or self-care (01) ==
LOC: HO.HWS 15:45
PROVIDERS: PCP Internal Medicine; Visit Provider Obstetrics & Gynecology
DX: Z01.419 Encounter for gynecological examination (general) (routine) without abnormal findings (principal)
CPT/HCPCS: 99395

== ENCOUNTER → 2024-01-24 15:45 | Outpatient (BNVA) | payer OTHER, SELFPAY | PROVIDERS: PCP Internal Medicine; Visit Provider Obstetrics & Gynecology | DX: Z01.419 Encounter for gynecological examination (general) (routine) without abnormal findings (principal); N94.6 Dysmenorrhea, unspecified | CPT/HCPCS: 99395 ==

== ENCOUNTER 2024-03-15 16:03 | Outpatient (AMB) | payer OTHER, SELFPAY ==
[2024-03-15 16:05] VITALS: BP 104/72; PULSE 77; O2SAT 100; BMI 24.0
--- NOTE | 2024-03-15 16:05 | MHC.PC.OV ---
Vital Signs 03/15/24 16:05 Height 5 ft 1 in Weight 127 lb 0.5 oz BMI 24.0 BP 104/72 Blood Pressure Location Lt brachial Position Sitting Pulse 77 Pulse Source Pulse Oximeter Pulse Oximetry (%) 100 Oxygen Delivery Method Room Air Intake Visit Reasons: sob on exertion, rectal pruritus Intake Note: Patient is here to follow up Mattress Maker Required: No Allergies hydromorphone [Dilaudid] Allergy (Intermediate, Verified 03/15/24 16:05) sob itching, vomiting metronidazole Allergy (Intermediate, Verified 03/15/24 16:05) Mood Swings codeine [CODEINE] Adverse Reaction (Intermediate, Verified 03/15/24 16:05) N/V Tobacco use date assessed: 03/15/24 Dental Screening Dental Screen Date: 12/11/23 HPI sob on exertion, rectal pruritus HPI Details 28-year-old female with a history of constipation GERD hypothyroidism generalized anxiety disorder last seen in November 2023. Patient is here for follow-up review of the notes in December 2023 ER visit for right ankle pain x-ray done showing 3 mm avulsion fracture from the anterolateral aspect of the calcaneus R. December 2023 loosing hair noted in 12/2023 will; be seeing derm March 22lso soon had rash on the neck area last PFSH Medical History (Updated 03/15/24 @ 16:31 by Aniket Gonzalez MD) Rectal bleeding Well woman exam Annual physical exam Foot pain, right Pain of right middle finger Leg swelling Muscle spasm Vitamin B12 deficiency Vaginal discharge UTI (urinary tract infection) Constipation Vitamin D deficiency History of Graves' disease Renal calculus, right Pancreatitis Intussusception Psoriasis Mild asthma Anxiety Esophageal stricture GERD (gastroesophageal reflux disease) Hypothyroidism Surgical History H/O radioactive iodine thyroid ablation Hx of colonoscopy History of surgery History of nasal surgery History of biopsy History of nasal cauterization History of wisdom tooth extraction History of endoscopy History of tonsillectomy Family History Father Elevated cholesterol Neuropathy Throat cancer Mother Raynauds syndrome Cervical cancer Sister Cervical cancer Paternal Grandmother Heart problem Heart attack Maternal Grandmother Lung cancer Paternal Grandfather Thyroid cancer Social History Household Members: Family Housing: House Are you a primary manager critical care unit to a significant other at home: No Do you presently have visiting nurse or other home services: No Alcohol intake: current Alcohol intake frequency: holidays/special occasions only Patient Tobacco Use Status: Never used Tobacco e-Cigarette/Vaping Use: Never Used Second Hand Smoke Exposure: Yes (Parents are smokers) service: No Current occupational status: employed 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 How often do you have a drink containing alcohol?: Monthly or less 2. How many drinks containing alcohol do you have on a typical day when you are drinking?: 1 or 2 3. How often do you have six or more drinks on one occasion?: Never Total Score: 1 RAPHAEL-7 AMB Questionnaire RAPHAEL-7 Date RAPHAEL - 7 assessed: 12/11/23 Source: Developed by Drs. Bin Nuñez, Mell Cassidy, Sha Roblero and colleagues, with an educational bessie from [employer]. Physical exam (Primary Care) Vital Signs: Oxygen Delivery Method Room Air 03/15/24 16:05 BMI result Body Mass Index 24.0 Tobacco/Smoking Status: Tobacco use Status Tobacco use date assessed 03/15/24 03/15/24 16:06 Patient Tobacco Use Status Never used Tobacco 03/15/24 16:06 e-Cigarette/Vaping Use Never Used 03/15/24 16:06 Thrive Assessment: Date of Thrive Assessment Date Thrive assessed 12/11/23 03/15/24 16:06 Assessment and Plan Assessment & Plan (1) Avulsion fracture of left ankle: Comment: December 2023 Code(s): S82.892A - Other fracture of left lower leg, initial encounter for closed fracture Plan: did see orthopedic boot placed and on physical therapy. (2) Generalized anxiety disorder: Comment: Patient has seen [facility] and declined referral this time; see note 11/22/21-mo'b Code(s): F41.1 - Generalized anxiety disorder Plan: Continue with paroxetine hydroxyzine (3) GERD (gastroesophageal reflux disease): Comment: EGD June 2020 Code(s): K21.9 - Gastro-esophageal reflux disease without esophagitis Qualifiers: Esophagitis presence: without esophagitis Qualified Code(s): K21.9 - Gastro-esophageal reflux disease without esophagitis Plan: Avoid the foods that causes that usually spicy foods, tomato products, juices, coffee, soda and foods that your sensitive to. After eating do not lie down, allow 3-4 hours before in lie down. And keep the head of bed above 30 degrees to avoid the acid from going up. (4) Hypothyroidism: Comment: post ablative Code(s): E03.9 - Hypothyroidism, unspecified Qualifiers: Hypothyroidism type: acquired Qualified Code(s): E03.9 - Hypothyroidism, unspecified Plan: Continue with thyroid medication (5) Hair loss: Code(s): L65.9 - Nonscarring hair loss, unspecified Plan: work requested will be seeing derm (6) Rectal bleeding: Code(s): K62.5 - Hemorrhage of anus and rectum Plan: trial prunes to help with BM (7) Avulsion fracture of right ankle: Comment: 12/2023 Code(s): S82.891A - Other fracture of right lower leg, initial encounter for closed fracture Orders: Orders XR DEXA axial skeleton Today S82.891A - Other fracture of right lower leg, initial encounter for closed fracture Coding Level of Care Code Est Pt Level 4 (74638) Diagnoses Avulsion fracture of left ankle S82.892A Generalized anxiety disorder F41.1 Gastroesophageal reflux disease without esophagitis K21.9 Esophagitis presence: without esophagitis Acquired hypothyroidism E03.9 Hypothyroidism type: acquired Hair loss L65.9 Rectal bleeding K62.5 Avulsion fracture of right ankle S82.891A
== END 2024-03-15 16:37 | disposition home or self-care (01) ==
PROVIDERS: PCP Internal Medicine; Visit Provider Internal Medicine
DX: S82.892A Other fracture of left lower leg, initial encounter for closed fracture (principal); F41.1 Generalized anxiety disorder; K21.9 Gastro-esophageal reflux disease without esophagitis; E03.9 Hypothyroidism, unspecified; L65.9 Nonscarring hair loss, unspecified; K62.5 Hemorrhage of anus and rectum; S82.891A Other fracture of right lower leg, initial encounter for closed fracture
CPT/HCPCS: 99214

== ENCOUNTER 2024-04-12 14:35 | Outpatient (REF) | payer OTHER, SELFPAY ==
--- NOTE | ~2024-04-12 | MM_ITS ---
EXAMINATION: BONE DENSITOMETRY CLINICAL INDICATION: Other specified disorders of bone density and structure. COMPARISON: This is the patient's baseline examination. TECHNIQUE: Using a [employer] DXA System (software version: 13.1) manufactured by [employer], dual-energy x-ray absorptiometry was performed of the lumbar spine and left hip. The images are of good technical quality. Based on ISCD (International Society for Clinical Densitometry) standards of reporting, Z-scores instead of T-scores are reported in this premenopausal woman. Summary results are attached. FINDINGS: AP SPINE L1-L4: BMD 1.038 g/cm2, T-score -1.2, Z-score -1.0, Z-score within expected range for age. LEFT FEMUR, NECK: BMD 0.812 g/cm2, T-score -1.6, Z-score -1.4, Z-score within expected range for age. LEFT FEMUR, TOTAL: BMD 0.843 g/cm2, T-score -1.3, Z-score -1.1, Z-score within expected range for age. IDENTIFIED RISK FACTORS: Low calcium intake, secondary osteoporosis (intestinal or bowel disease). HISTORY OF FRACTURE: None listed. MEDICATIONS: Multivitamin, vitamin D, ERT/SERMS. MM/XR DEXA axial skeleton IMPRESSION: 1. DIAGNOSIS: Based on the lowest Z-score value of -1.4 in the femoral neck, the patient's bone density is within the expected range for age. 2. 10-YEAR FRACTURE RISK PREDICTION, FRAX: Not performed in this patient outside the age range of 40-90 years. 3. Treatment Recommendations: NOF guidelines recommend consideration for treatment in postmenopausal women and men age 50 and older presenting with the following: -A hip or vertebral (clinical or morphometric) fracture. -T-score less than or equal to -2.5 at the femoral neck or spine after appropriate evaluation to exclude secondary causes. -Low bone mass at the hip or spine and a 10-year fracture probability by FRAX of greater than or equal to 3% for hip fracture or greater than or equal to 20% for major osteoporotic fracture based on the [place] adapted WHO algorithm. 4. Other Recommendations: All treatment decisions require clinical judgment and consideration of individual patient factors, including patient preferences, comorbidities, previous drug use, risk factors not captured in the FRAX model (e.g. frailty, falls, vitamin D deficiency, increased bone turnover, interval significant decline in bone density) and possible under or overestimation of fracture risk by FRAX. FUTURE SCAN RECOMMENDATION: People with diagnosed cases of osteoporosis or at high risk for fracture should have regular bone mineral density tests. For patients eligible for Medicare, routine testing is allowed once every 2 years. The testing frequency can be increased to one year for patients who have rapidly progressing disease, those who are receiving or discontinuing medical therapy to restore bone mass, or have additional risk factors.
[2024-04-12 15:30] LABS: MANUAL DIFF FLAG NO
[2024-04-12 16:17] LABS: Basophils Percent Auto 0.3 % (0-2); Eosinophils Absolute Auto 0.1 X10*3/uL (0.0-0.4); Eosinophils Percent Auto 0.8 % (0-4); Hematocrit 39.2 % (37.0-47.0); Hemoglobin 13.5 g/dl (12.0-16.0); Imm Gran Abs Auto 0.02 X10*3/uL (0.00-0.03); Imm Gran Pct Auto 0.3 % (0.0-0.4); Immature Retic Fraction 3.5 % (3.0-15.9); Lymphocytes Absolute Auto 2.3 X10*3/uL (1.2-4.9); Lymphocytes Percent Auto 29.5 % (20-40); Mean Corpuscular HGB Conc 34.4 g/dl (31.0-35.0); Mean Corpuscular Hemoglobin 29.9 pg (27.0-33.0); Mean Corpuscular Volume 86.7 fL (80.0-98.0); Mean Platelet Volume 9.3 fL (9.4-12.3); Monocytes Absolute Auto 0.6 X10*3/uL (0.1-1.2); Monocytes Percent Auto 7.9 % (2-11); Neutrophils Absolute Auto 4.8 x10*3/uL (2.0-8.3); Neutrophils Percent Auto 61.2 % (45-73); Platelet Count 312 X10*3/uL (160-400); Red Blood Count 4.52 X10*6/uL (4.20-5.50); Red Cell Distribution Width 12.5 % (11.0-16.0); Retic HGB Equivalent 33.6 pg (30.0-35.0); Reticulocyte Percent 1.8 % (0.5-1.8); Reticulocytes Absolute 0.079 X10*6/uL (0.026-0.095); White Blood Count 7.8 X10*3/uL (4.8-10.8)
[2024-04-12 16:21] LABS: Estimated Average Glucose 85 mg/dL; Hemoglobin A1c % 4.6 % (<6.0)
[2024-04-12 16:44] LABS: Alanine Aminotransferase 16 U/L (0-31); Albumin Level 4.5 g/dL (3.5-5.0); Alkaline Phosphatase 58 U/L (39-117); Anion Gap 13 (12-20); Aspartate Amino Transferase 19 U/L (5-31); Bilirubin Total 0.4 mg/dL (0.0-1.0); Blood Urea Nitrogen 12 mg/dL (9-16); Calcium 9.8 mg/dL (8.4-10.2); Carbon Dioxide 26 mmol/L (22-29); Chloride 105 mmol/L (96-108); Estimated Glomerular Filt Rate > 60; Glucose Random 86 mg/dL (60-115); Iron 47 mcg/dL (30-160); Percent Iron Saturation 15 % (15-50); Potassium 3.8 mmol/L (3.3-5.1); Sodium 140 mmol/L (135-145); Total Iron Binding Capacity 320 mcg/dL (228-428); Total Protein 7.5 g/dL (6.5-8.0); Unsaturated Iron Binding 273 ug/dL
[2024-04-12 17:01] LABS: Ferritin 64 ng/mL (10-122); Free T4 (Free Thyroxine) 0.92 ng/dL (0.71-1.85); Thyroid Stimulating Hormone 1.02 uIU/mL (0.32-4.0)
[2024-04-12 17:12] LABS: Appearance Urine Clear; Color Urine Yellow; Glucose Urine UA Negative (Negative); Leukocyte Esterase Urine Negative (Negative); Nitrite Urine Negative (Negative); PH 6.5 (5.0-9.0); Specific Gravity - Urine 1.025 (1.005-1.025); UMIC TRIGGER UA YES; Urine Blood Small (1+) (Negative); Urine Ketones Trace mg/dL (Negative); Urine Protein Negative (Neg-Trace)
[2024-04-12 17:12] LABS: Folate 9.1 ng/mL (> or = 4.0); Vitamin B12 1082 pg/mL (200-900)
[2024-04-12 17:35] LABS: Bacteria Urine None Seen (None Seen); Hyaline Casts Urine 0-2 /LPF (0-2); Squamous Epithelial Cell Urine 0-2 /HPF (0-2); WBC Urine 0-5 /HPF (0-5)
== END 2024-04-12 14:36 | disposition home or self-care (01) ==
LOC: HO.MAMMO 14:35
PROVIDERS: PCP Internal Medicine; Visit Provider Internal Medicine
DX: M81.0 Age-related osteoporosis without current pathological fracture (principal); M85.88 Other specified disorders of bone density and structure, other site; R31.9 Hematuria, unspecified; R06.02 Shortness of breath; R10.9 Unspecified abdominal pain; S82.891A Other fracture of right lower leg, initial encounter for closed fracture; X58.XXXA Exposure to other specified factors, initial encounter; Y93.9 Activity, unspecified; Y92.9 Unspecified place or not applicable; Y99.9 Unspecified external cause status
CPT/HCPCS: 36415; 77080; 80053; 81001; 82607; 82728; 82746; 83036; 83540; 84439; 84443; 85025; 85045

== ENCOUNTER 2024-07-01 17:29 | Outpatient (AMB) | payer OTHER, SELFPAY ==
[2024-07-01 18:21] VITALS: BP 108/70; BMI 23.8
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
== END 2024-07-01 19:06 | disposition home or self-care (01) ==
PROVIDERS: PCP Internal Medicine; Visit Provider Internal Medicine
DX: Z00.00 Encounter for general adult medical examination without abnormal findings (principal); F41.1 Generalized anxiety disorder; K21.9 Gastro-esophageal reflux disease without esophagitis; E03.9 Hypothyroidism, unspecified
CPT/HCPCS: 99395

== ENCOUNTER 2025-01-06 16:49 | Outpatient (AMB) | payer OTHER, SELFPAY ==
[2025-01-06 17:10] VITALS: BP 110/78; PULSE 71; O2SAT 98; BMI 22.9
--- NOTE | 2025-01-06 17:10 | A.OFFPC_ITS ---
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: No Accompanied by: Self / Same As Patient Allergies hydromorphone [Dilaudid] Allergy (Intermediate, Verified 01/06/25 17:14) sob itching, vomiting metronidazole Allergy (Intermediate, Verified 01/06/25 17:14) Mood Swings codeine [CODEINE] Adverse Reaction (Intermediate, Verified 01/06/25 17:14) N/V Medication List - Last Reconciled 01/06/25 by Aniket Gonzalez MD ascorbate calcium (vitamin C) 500 mg PO DAILY calcipotriene 0.005% appl topical cholecalciferol (vitamin D3) 50 mcg PO DAILY 90 days clindamycin phosphate 1% 1 appl topical BID cyanocobalamin (vitamin B-12) 1,000 mcg PO DAILY desogestrel-ethinyl estradiol 0.15-0.03 mg (Apri) 1 tab PO DAILY 84 days levothyroxine 75 mcg PO DAILY 90 days pantoprazole 20 mg PO QAM paroxetine HCl 10 mg PO BEDTIME tacrolimus 0.1% 1 appl topical BID triamcinolone acetonide 0.1% 1 appl topical BID-TID Tobacco use date assessed: 01/06/25 Dental Screening Dental Screen Date: 01/06/25 Did you have a dental visit in the last 12 months?: Yes Did you have a dental problem in the last 6 months where you did not have access to dental care?: No HPI 6 month HPI Details stopped hydroxyzine. 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 She was last seen in June for a physical exam and required urgent care in July for pharyngitis. She reports stopping hydroxyzine as advised by her exhibition specialist. In recent months, she has noticed significant hair thinning, described as resembling a rat tail, and a notable weight loss from 126 pounds to 121 pounds. These symptoms prompted consideration of potential thyroid dysfunction and the need for nutritional evaluation. Additionally, episodes of low blood pressure characterized by hot and cold sweats, pallor, nausea, and dizziness have occurred, particularly in the mornings, impacting her ability to work. She has no current menstrual irregularities and is on control, taking it at night without issue. The patient has experienced facial eczema for which she uses tacrolimus ointment. There are no reports of urinary issues, and bowel movements are normal. A recent illness did not test positive for COVID-19. The patient requests recommendation s for hair supplements compatible with her current medications. Health Maintenance - Importance of balanced diet recommende d over reliance on vitamins - Advised on spacing thyroid medication from other vitamins - Blood work planned for thyroid functio n evaluation - Urine test and fasting blood test sche duled Social History - Employment: Works at [employer], a [employer] - Family status: No specific details dis cussed - Current nutritional intake: Patient ex pressed interest in taking multivitamins, but encouraged to prioritize nutrient-rich food - Medication: Stopped hydroxyzine; control taken at night - Weight management: Noted recent weight loss, plan for further evaluation Review of Systems - General: Reports weight loss, hair thi nning, intermittent hot and cold sweats, fatigue - Cardiovascular: Reports episodes of lo w blood pressure - Dermatological: Reports thinning hair, facial eczema - Gastrointestinal: Denies gastrointesti nal pain, bowel movements are regular - Genitourinary: Denies urinary problems - Neurological: Reports dizziness and he adaches associated with low blood pressure episodes - Respiratory: Denies cough, recent illn ess not COVID Physical Exam Results Plan - Conduct blood work to evaluate thyroid levels and assess unexplained weight loss and hair thinning - Review results of fasting blood test a nd urine test for further insight into endocrine function - Encourage biotin supplementation for h Foodista if blood work does not indicate contraindications - Continue current medication regimen fo r GERD and anxiety, with ongoing observation of symptoms - Monitor low blood pressure episodes an d consider potential endocrine causes following blood work results - Maintain use of tacrolimus ointment fo r eczema management and assess for exacerbations Patient was informed and verbally consented to the use of an ambient scribe for clinic note documentation during this visit. Discussion Notes During the consultation, I emphasized the importance of balanced nutrition and the need for blood work to assess thyroid function and potential causes of weight loss and hair thinning. We discussed the potential role of biotin supplements should initial test results permit their use. The patient's recent low blood pressure episodes and associated symptoms were considered potentially endocrine-related, warranting further evaluation through scheduled testing. I advised spacing vitamins appropriately from thyroid medication and reiterated the continuation of her current GERD and anxiety treatments. Follow-up actions include a fasting blood test and urine test, with a commitment to review results and adjust the management plan accordingly. Patient Instructions - Schedule blood tests for this Monday m orning - Fast from midnight prior to blood draw , only water permitted - Continue using tacrolimus ointment as directed for eczema - Monitor symptoms of low blood pressure and report any significant changes - Separate vitamin intake from thyroid m edication - Follow balanced diet to support overal l health and consider biotin supplements following blood work review [facility] Medical History (Updated 07/01/24 @ 18:42 by Aniket Gonzalez MD) Rectal bleeding Well woman exam Annual physical exam Foot pain, right Pain of right middle finger Leg swelling Muscle spasm Vitamin B12 deficiency Vaginal discharge UTI (urinary tract infection) Constipation Vitamin D deficiency History of Graves' disease Renal calculus, right Pancreatitis Intussusception Psoriasis Mild asthma Anxiety Esophageal stricture GERD (gastroesophageal reflux disease) Hypothyroidism Surgical History H/O radioactive iodine thyroid ablation Hx of colonoscopy History of surgery History of nasal surgery History of biopsy History of nasal cauterization History of wisdom tooth extraction History of endoscopy History of tonsillectomy Family History Father Elevated cholesterol Neuropathy Throat cancer Mother Raynauds syndrome Cervical cancer Sister Cervical cancer Paternal Grandmother Heart problem Heart attack Maternal Grandmother Lung cancer Paternal Grandfather Thyroid cancer Social History Household Members: Family Housing: House Are you a primary director of medicare to a significant other at home: No Do you presently have visiting nurse or other home services: No Alcohol intake: current Alcohol intake frequency: holidays/special occasions only Comment: once a month1-3 drinks Patient Tobacco Use Status: Never used Tobacco e-Cigarette/Vaping Use: Never Used Second Hand Smoke Exposure: Yes (Parents are smokers) service: No Current occupational status: employed 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 1. Little interest or pleasure in doing things: not at all 2. Feeling down, depressed, or hopeless: not at all 3. Trouble falling or staying asleep, or sleeping too much: not at all 4. Feeling tired or having little energy: not at all 5. Poor appetite or overeating: not at all 6. Feeling bad about yourself - or that you are a failure or have let yourself or your family down: not at all 7. Trouble concentrating on things, such as reading the newspaper or watching television: not at all 8. Moving or speaking so slowly that other people could have noticed. Or the opposite - being so fidgety or restless that you have been moving around a lot more than usual: not at all 9. Thoughts that you would be better off or of hurting yourself in some way: not at all Total score: 0 Depression Screening Interpretation: Negative Depression Screening Done: Yes Source: Developed by Drs. Bin Nuñez, Mell Cassidy, Sha Roblero and colleagues, with an educational bessie from [employer]. Thrive Questionnaire Date Thrive assessed: 01/06/25 I am a: Patient What is your living situation today?: I have a steady place to live Within the past 12 months, did the food you bought not last and you didn't have the money to get more?: Never true Within the past 12 months, did you worry whether your food would run out before you got money to buy more?: Never true Do you have trouble paying for medicines?: No Do you have trouble getting transportation to medical appointments?: No Do you have trouble paying your heating and electricity bill?: No Do you have trouble taking care of your child, family member or friend?: No Do you have trouble with day-to-day activities such as bathing, preparing meals, shopping, managing finances, etc.?: No Are you currently unemployed and looking for a job?: No Are you interested in more education?: No Please select the resources that you would like help with: None Currently or been in a relationship where the following occur: No concerns r eported THRIVE Score: 0 AUDIT C Alcohol Use Questionnaire (AUDIT-C) 1. How often do you have a drink containing alcohol?: Monthly or less 2. How many drinks containing alcohol do you have on a typical day when you are drinking?: 1 or 2 3. How often do you have six or more drinks on one occasion?: Never Total Score: 1 RAPHAEL-7 AMB Questionnaire RAPHAEL-7 Date RAPHAEL - 7 assessed: 01/06/25 Feeling nervous, anxious, or on edge: 1 = Several days Not being able to stop or control worryin = Not at all Worrying too much about different things: 0 = Not at all Trouble relaxin = Not at all Being so restless that it is hard to sit still: 0 = Not at all Becoming easily annoyed or irritable: 0 = Not at all Feeling afraid as if something awful might happen: 0 = Not at all Total RAPHAEL-7 score (0-4 normal; 5-9 mild; 10-14 moderate; 15-21 severe): 1 Source: Developed by Drs. Bin Nuñez, Mell Cassidy, Sha Roblero and colleagues, with an educational bessie from [employer]. Physical exam (Primary Care) Vital Signs: Last Vital Signs Pulse 71 01/06/25 17:10 BP 110/78 01/06/25 17:10 Pulse Ox 98 01/06/25 17:10 Oxygen Delivery Method Room Air 01/06/25 17:10 BMI result Body Mass Index 22.9 Tobacco/Smoking Status: Tobacco use Status Tobacco use date assessed 01/06/25 01/06/25 17:17 Patient Tobacco Use Status Never used Tobacco 01/06/25 17:17 e-Cigarette/Vaping Use Never Used 01/06/25 17:17 PHQ-9: PHQ-9 Score PHQ-9: Total score 0 01/06/25 17:25 Depression Screening Interpretation: Negative Thrive Assessment: Date of Thrive Assessment Date Thrive assessed 01/06/25 01/06/25 17:17 Currently or been in a relationship where the following occur: No concerns reported Const General: alert; No acute distress Eyes Conjunctivae: conjunctivae normal Resp Auscultation: clear to auscultation bilaterally Cardio Rate: regular rate Rhythm: regular rhythm GI Inspection: Yes normal to inspection Extrem General: Yes normal to inspection and No edema Coding Level of Care Code Est Pt Level 4 (11882) Diagnoses Acquired hypothyroidism E03.9 Hypothyroidism type: acquired Gastroesophageal reflux disease without esophagitis K21.9 Esophagitis presence: without esophagitis Generalized anxiety disorder F41.1 Assessment & Plan Assessment & Plan (1) Hypothyroidism: Comment: post ablative Code(s): E03.9 - Hypothyroidism, unspecified Category: Medical Qualifiers: Hypothyroidism type: acquired Qualified Code(s): E03.9 - Hypothyroidism, unspecified Plan: Continue with thyroid medication (2) GERD (gastroesophageal reflux disease): Comment: EGD June 2020 Code(s): K21.9 - Gastro-esophageal reflux disease without esophagitis Category: Medical Qualifiers: Esophagitis presence: without esophagitis Qualified Code(s): K21.9 - Gastro-esophageal reflux disease without esophagitis Plan: Avoid the foods that causes that usually spicy foods, tomato products, juices, coffee, soda and foods that your sensitive to. After eating do not lie down, allow 3-4 hours before in lie down. And keep the head of bed above 30 degrees to avoid the acid from going up. (3) Generalized anxiety disorder: Comment: Patient has seen [facility] and declined referral this time; see note 11/22/21-mo'b Code(s): F41.1 - Generalized anxiety disorder Category: Medical Plan: Continue with present medication Plan History of Present Illness The patient is a 29-year-old female presenting with concerns of chronic hypothyroidism, GERD, generalized anxiety disorder, and new symptoms including hair thinning and unexplained weight loss. She was last seen in June for a physical exam and required urgent care in July for pharyngitis. She reports stopping hydroxyzine as advised by her exhibition specialist. In recent months, she has noticed significant hair thinning, described as resembling a rat tail, and a notable weight loss from 126 pounds to 121 pounds. These symptoms prompted consideration of potential thyroid dysfunction and the need for nutritional evaluation. Additionally, episodes of low blood pressure characterized by hot and cold sweats, pallor, nausea, and dizziness have occurred, particularly in the mornings, impacting her ability to work. She has no current menstrual irregularities and is on control, taking it at night without issue. The patient has experienced facial eczema for which she uses tacrolimus ointment. There are no reports of urinary issues, and bowel movements are normal. A recent illness did not test positive for COVID-19. The patient requests recommendations for hair supplements compatible with her current medications. Health Maintenance - Importance of balanced diet recommended over reliance on vitamins - Advised on spacing thyroid medication from other vitamins - Blood work planned for thyroid function evaluation - Urine test and fasting blood test scheduled Social History - Employment: Works at [employer] - Family status: No specific details discussed - Current nutritional intake: Patient expressed interest in taking multivitamins, but encouraged to prioritize nutrient-rich food - Medication: Stopped hydroxyzine; control taken at night - Weight management: Noted recent weight loss, plan for further evaluation Review of Systems - General: Reports weight loss, hair thinning, intermittent hot and cold sweats, fatigue - Cardiovascular: Reports episodes of low blood pressure - Dermatological: Reports thinning hair, facial eczema - Gastrointestinal: Denies gastrointestinal pain, bowel movements are regular - Genitourinary: Denies urinary problems - Neurological: Reports dizziness and headaches associated with low blood pressure episodes - Respiratory: Denies cough, recent illness not COVID Physical Exam Results Plan - Conduct blood work to evaluate thyroid levels and assess unexplained weight loss and hair thinning - Review results of fasting blood test and urine test for further insight into endocrine function - Encourage biotin supplementation for hair health if blood work does not indicate contraindications - Continue current medication regimen for GERD and anxiety, with ongoing observation of symptoms - Monitor low blood pressure episodes and consider potential endocrine causes following blood work results - Maintain use of tacrolimus ointment for eczema management and assess for exacerbations Patient was informed and verbally consented to the use of an ambient scribe for clinic note documentation during this visit. Discussion Notes During the consultation, I emphasized the importance of balanced nutrition and the need for blood work to assess thyroid function and potential causes of weight loss and hair thinning. We discussed the potential role of biotin supplements should initial test results permit their use. The patient's recent low blood pressure episodes and associated symptoms were considered potentially endocrine-related, warranting further evaluation through scheduled testing. I advised spacing vitamins appropriately from thyroid medication and reiterated the continuation of her current GERD and anxiety treatments. Follow-up actions include a fasting blood test and urine test, with a commitment to review results and adjust the management plan accordingly. Patient Instructions - Schedule blood tests for this Monday morning - Fast from midnight prior to blood draw, only water permitted - Continue using tacrolimus ointment as directed for eczema - Monitor symptoms of low blood pressure and report any significant changes - Separate vitamin intake from thyroid medication - Follow balanced diet to support overall health and consider biotin supplements following blood work review Orders: Orders Ferritin Today D50.9 - Iron deficiency anemia, unspecified Magnesium Today D50.9 - Iron deficiency anemia, unspecified IRON PROFILE Today D50.9 - Iron deficiency anemia, unspecified Reticulocyte Count Today D50.9 - Iron deficiency anemia, unspecified Lipid Panel Today D50.9 - Iron deficiency anemia, unspecified, E78.00 - Pure hypercholesterolemia, unspecified UA CC w/rflx Micro + Cult Today D50.9 - Iron deficiency anemia, unspecified, R30.0 - Dysuria
--- OUTSIDE RECORDS SUMMARY | 2025-01-06 18:34 | XMS_ITS | Clinical Summary ---
Author Organization [facility] Address [address] [place] [address] Phone Care Team Providers Care [employer] Name Role Phone GEMMA YO Primary Care Provider [phone] [facility] Unavailable [phone] Reason for Visit and Chief Complaint Established Patient Plan of Treatment No Plan of Treatment Recorded Assessments Includes: Assessments from this encounter No Assessments Recorded Medical Equipment - Implanted Devices Includes: Current Devices No Medical Equipment Recorded Medications Includes: Medications discussed during this encounter and other current Medications Current Medications (continue as prescribed) Ibuprofen 600 MG Oral Tablet 03/11/2024 Provider: Diagnosis: Last Documented On 4 8:14AM By Tu Arguello ; [facility] Medications Administered Includes: Administered Medications from this encounter No Administered Medications Recorded Results Includes: Results discussed during this encounter No Results Recorded For Specified Dates History of Present Illness Includes: History of Present Illness from this encounter No History of Present Illness Recorded Social History No Social History Recorded - Smoking Status Unknown Medical History Includes: Medical History addressed during this encounter No Medical History Recorded Family History Includes: Family History addressed during this encounter No Family History Recorded Review of Systems Includes: Review of Systems from this encounter No Review of Systems Recorded Mental Status Includes: Mental Status from this encounter No Mental Status Recorded Functional Status Includes: Functional Status from this encounter No Functional Status Recorded Physical Exam Includes: Physical Exam from this encounter No Physical Exam Recorded Insurance Includes: Active Insurance Policies Plan Name Member ID Group # Subscriber Relationship Effect neel Dates 1 - [employer] [id number] Daksha Saucedo Self Clinical Notes Includes: Clinical Notes from this encounter No Clinical Notes Recorded
--- OUTSIDE RECORDS SUMMARY | 2025-01-06 18:34 | XMS_ITS | Clinical Summary ---
Author Organization [facility] Address [address] [place] [address] Care Team Providers Care Airline Security Representative Name Role Phone Unavailable Primary Care Provider Unavailabl e Allergies No known active allergies Medications Medication Sig Dispensed Refills Start Date End Date Status ibuprofen (ADVIL,MOTRIN) 200 MG tablet Take 3 tablets (600 mg total) by mouth 3 (three) times a day. 20 tablet 0 02/12/2017 Active Social History Tobacco Use Types Packs/Day Years Used Date Smoking Tobacco: Never Smokeless Tobacco: Never Alcohol Use Standard Drinks/Week Comments Yes 1 (1 standard drink = 0.6 oz pur e alcohol) Sex and Gender Information Value Date Recorded Sex Assigned at Not on file Gender Identity Not on file Sexual Orientation Not on file Job Start Date Occupation Industry Not on file Not on file Not on file Last Filed Vital Signs Vital Sign Reading Time Taken Comments Blood Pressure 105/64 02/12/2017 1:57 PM EDT Pulse 70 02/12/2017 1:57 PM EDT Temperature 36.5 ??C (97.7 ??F) 02/12/2017 1:57 PM ED T Respiratory Rate 20 02/12/2017 1:57 PM EDT Oxygen Saturation 100% 02/12/2017 1:57 PM EDT Inhaled Oxygen Concentration - - Weight 37.2 kg (82 lb) 02/12/2017 12:34 PM EDT Height 154.9 cm (5' 1 ) 02/12/2017 12:34 PM EDT Body Mass Index 15.49 02/12/2017 12:34 PM EDT Plan of Treatment Health Maintenance Due Date Last Done Comments Hepatitis B Vaccines (1 of 3 - 3-dose series) 1995 Hepatitis C Screening 1995 COVID-19 Vaccine (#1) 1995 Depression Screening 2007 Preventative Health Evaluation 2013 DTap / Tdap / Td (1 - Tdap) 2014 Cervical Cancer Screening (P ap Smear) 2016 Influenza Vaccine (#1) 2024 Pneumococcal Vaccine Aged Out No long er eligible based on patient's age to complete this topic RSV Ped < 20 months Aged Out No longe r eligible based on patient's age to complete this topic Daksha Saucedo Personal/Family Self 1995 [address] [place] [id number]
--- OUTSIDE RECORDS SUMMARY | 2025-01-06 18:34 | XMS_ITS | Clinical Summary ---
Author Organization [facility] Address [address] [place] [address] Care Team Providers Care Freight Weigher Name Role Phone Aniket Gonzalez MD Primary Care Provider [phone] Medical History Medical History Date Comments Anxiety 06/12/2022 DX:Anxiety Esophageal stricture 06/12/2022 DX:Esophage al stricture GERD (gastroesophageal reflux disease) 06/12/2022 DX:GERD (gastroesophageal reflux disease) History of Graves' disease 06/12/2022 DX:Hi story of Graves' disease Intussusception (CMS/HCC) 06/12/2022 DX:Int ussusception (HCC) Mild asthma 06/12/2022 DX:Mild asthma History of acute pancreatitis 06/12/2022 DX :History of acute pancreatitis Psoriasis 06/12/2022 DX:Psoriasis Renal calculus, right 06/12/2022 DX:Renal c alculus, right Vitamin D deficiency 06/12/2022 DX:Vitamin D deficiency Social History Tobacco Use Types Packs/Day Years Used Date Smoking Tobacco: Never Assessed Comments Unknown Sex and Gender Information Value Date Recorded Sex Assigned at Not on file Legal Sex Female 10:06 PM EST Gender Identity Not on file Sexual Orientation Not on file Obstetrics History Last Filed Vital Signs Vital Sign Reading Time Taken Comments Blood Pressure 112/80 08/01/2022 4:15 PM EDT Sit ting L Arm Pulse 82 08/01/2022 4:15 PM EDT Temperature - - Respiratory Rate - - Oxygen Saturation - - Inhaled Oxygen Concentration - - Weight 61.7 kg (136 lb) 08/01/2022 4:15 PM EDT Height 154.9 cm (5' 1 ) 08/01/2022 4:15 PM EDT Body Mass Index 25.7 08/01/2022 4:15 PM EDT Plan of Treatment Health Maintenance Due Date Last Done Comments Pneumococcal Vaccine: Pediatrics (0 to 5 Years) and At-Risk Patients (6 to 64 Years) (1 of 2 - PCV) 2014 Cervical Cancer Screening: P ap Smear 2016 Depression Screening 10/15/2022 HIV Screening 10/15/2022 Hepatitis C Screening 10/15/2022 Social Influencers of Health Screening 10/15/2022 COVID-19 Vaccine (1 - 2023-2 5 season) 2024 Influenza Vaccine (#1) 2024 9, 07/27/2018, 11/26/2015 DTaP,Tdap,and Td Vaccines (3 - Td or Tdap) 09/28/2026 09/28/2016, 08/30/2006 Hepatitis B Vaccines Completed 01/15/1996, 1995, 1995 MMR Vaccines Completed 01/29/1999, 06/13/1996 Varicella Vaccines Completed 08/19/2009, 09/17/1996 Hepatitis A Vaccines Aged Out 11/26/2015 No long er eligible based on patient's age to complete this topic Meningococcal ACWY Vaccine Aged Out 11/26/2015 N o longer eligible based on patient's age to complete this topic HIB Vaccines Aged Out No longer eligi ble based on patient's age to complete this topic HPV Vaccines Aged Out No longer eligi ble based on patient's age to complete this topic IPV Vaccines Aged Out No longer eligi ble based on patient's age to complete this topic Meningococcal B Vacine Aged Out No lo nger eligible based on patient's age to complete this topic RSV Immunization Patients Under 20 months Aged Out No longer eligible b ased on patient's age to complete this topic Care Teams Freight Weigher Relationship Specialty Start Date End Date Aniket Gonzalez MD [address] [place] [address] [address] [facility] [place] [address] PCP - General Internal Medicine 01/16/20
--- OUTSIDE RECORDS SUMMARY | 2025-01-06 18:34 | XMS_ITS | Encounter Summary ---
Author Organization [facility] Address [address] [place] [id number] Phone Care Team Providers Care Shank Turner Name Role Phone Susan Justice MD Primary Care Provider Unava ilable Encounter Details Date Type Department Care Team (Late st Contact Info) Description 01/18/2010 Documentation [facility] [address] [place] [address] Family Medicine, Physician [address] [place], [place] [address] Social History Tobacco Use Types Packs/Day Years Used Date Smoking Tobacco: Never Assessed Comments Unknown Sex and Gender Information Value Date Recorded Sex Assigned at Not on file Legal Sex Female 5:11 PM EDT Gender Identity Not on file Sexual Orientation Not on file documented as of this encounter Plan of Treatment Not on file documented as of this encounter Visit Diagnoses Not on filedocumented in this encounter Care Teams Shank Turner Relationship Specialty Start Date End Date Susan Justice MD PCP - General 06/23/17 documented as of this encounter
--- OUTSIDE RECORDS SUMMARY | 2025-01-06 18:34 | XMS_ITS | Encounter Summary ---
Author Organization [facility] Address [address] [place] [address] Phone Care Team Providers Care Media Marketing Manager Name Role Phone Susan Justice MD Primary Care Provider Unava ilable Encounter Details Date Type Department Care Team (Late st Contact Info) Description 01/18/2010 Documentation [facility] [address] [place] [address] Family Medicine, Physician [address] [place], [place] [id number] Social History Tobacco Use Types Packs/Day Years [...] on filedocumented in this encounter Care Teams Media Marketing Manager Relationship Specialty Start Date End Date Susan Justice MD PCP - General 06/23/17 documented as of this encounter
--- OUTSIDE RECORDS SUMMARY | 2025-01-06 18:34 | XMS_ITS ---
Care Plan - [facility] Created on: January 06, 2025 Daksha Saucedo : 1995 Sex: Female Author Organization [facility] Address [address] [place] [address] Phone Care Team Providers Care Annual Giving Officer Name Role Phone GEMMA YO Primary Care Provider [phone] [facility] Unavailable [phone]
--- OUTSIDE RECORDS SUMMARY | 2025-01-06 18:34 | XMS_ITS | Clinical Summary ---
Author Organization [facility] Address [address] [place] [address] Phone Care Team Providers Care Heavy Rail Train Operator Name Role Phone GEMMA YO Primary Care Provider [phone] [facility] Un[facility] [phone] Reason for Visit and Chief Complaint Established Patient Plan of Treatment Pending Tests Order Diagnosis Results Due Ordering P dagmar Follow Up - Return to School / Work Note 02/05/24 Parvin trivedi MD Last Documented On 4 9:10AM ; [facility] Follow Up - Appointment 1 Month Unspecif ied sprain of right foot, initial encounter 02/05/24 Parvin Osborne MD Last Documented On 4 9:09AM ; [facility] Assessments Includes: Assessments from this encounter No Assessments Recorded Medical Equipment - Implanted Devices Includes: Current Devices No Medical Equipment Recorded Medications Includes: Medications discussed during this encounter and other current Medications Current Medications (continue as prescribed) Ibuprofen 600 MG Oral Tablet 03/11/2024 Provider: Diagnosis: Last Documented On 4 8:14AM By Tu Arguello ; [facility] Medications Administered Includes: Administered Medications from this encounter No Administered Medications Recorded Vital Signs Includes: Vital Signs from this encounter Vital Name 02/05/2024 08:34A Blood Pressure Sitting R 112/70 Pulse Rate-Sitting (bpm) 64 Temp-Temporal 98 Height (in) 61 Weight (lb) 130 Body Mass Index 24.6 Body Surface Area 1.6 Oxygen Saturation (%) 99 Last Documented: On 02/05/2024 8:34AM ; [facility] Results Includes: Results discussed during this encounter No Results Recorded For Specified Dates History of Present Illness Includes: History of Present Illness from this encounter No History of Present Illness Recorded Social History No Social History Recorded - Smoking Status Unknown Procedures and Surgical History Includes: Procedures from this encounter Procedures Code Diagnosis Performing Provider Service Location Service Date X-Ray Of Foot, complete min of 3 views (Right) [address] Unspecified sprain of right foot, initial encounter Parvin Osborne MD [facility], 02/05/2024 Last Documented On 4 8:42AM ; [facility], Medical History Includes: Medical History addressed during this encounter No Medical History Recorded Family History Includes: Family History addressed during this encounter No Family History Recorded Review of Systems Includes: Review of Systems from this encounter Status post trip on a step on 01/01/24 with a right foot avulsion fracture HPI Patient tripped on a step and injured her right foot. She was seen in the emergency room and found to have an avulsion fracture on the lateral aspect of her foot. 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 Physical exam Warm and perfused foot Mild lateral foot and ankle swelling with no ecchymoses. Slightly decreased range of motion especially with ankle inversion Tender to palpation over the area of the avulsion fracture X-rays reviewed Assessment plan Continue to use care and work on therapy. Okay to walk and okay to use assistive device as needed. She should avoid pushing and went over to 150 pounds when she goes to work. Follow-up in 1 month. Mental Status Includes: Mental Status from this encounter No Mental Status Recorded Functional Status Includes: Functional Status from this encounter No Functional Status Recorded Physical Exam Includes: Physical Exam from this encounter Encounters Encounter Provider Location Date Check-In Time Check-Out Time Diagnosis Established Patient Parvin Osborne MD [facility], 024 8:20AM 8:48AM Insurance Includes: Active Insurance Policies Plan Name Member ID Group # Subscriber Relationship Effect neel Dates 1 - [employer] [id number] Daksha Pozo Clinical Notes Includes: Clinical Notes from this encounter * Progress note Date Encounter Last Documented by 02/05/2024 Established Patient Terrell jyotirosa chicas on 02/05/2024; 9:10 AM, Parvin Osborne MD; [facility], Physical Findings - Vitals taken 02/05/2024 08:34 am BP-Sitting R 112/70 mmHg Pulse Rate-Sitting 64 bpm Temp-Temporal 98 F Height 61 in Weight 130 lbs Body Mass Index 24.6 kg/m2 Body Surface Area 1.6 m2 Oxygen Saturation 99 % Plan StartCited - Other Follow Up/Return to: School / Work Note EndCited StartCited - Unspecified sprain of right foot, initial encounter Follow Up/Appointment: 1 Month EndCited User Defined 4 Status post trip on a step on 01/01/24 with a right foot avulsion fracture HPI Patient tripped on a step and injured her right foot. She was seen in the emergency room and found to have an avulsion fracture on the lateral aspect of her foot. 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 Physical exam Warm and perfused foot Mild lateral foot and ankle swelling with no ecchymoses. Slightly decreased range of motion especially with ankle inversion Tender to palpation over the area of the avulsion fracture X-rays reviewed Assessment plan Continue to use care and work on therapy. Okay to walk and okay to use assistive device as needed. She should avoid pushing and went over to 150 pounds when she goes to work. Follow-up in 1 month.
--- OUTSIDE RECORDS SUMMARY | 2025-01-06 18:35 | XMS_ITS | Clinical Summary ---
Author Organization [facility] Address [address] [place] [address] Phone Care Team Providers Care Electric Motor Tester Assembler Name Role Phone Susan Justice MD Primary Care Provider Unava ilable Immunizations Immunization Administration Dates Next Due DTP 1995,1995,1995 DTaP 5 02/24/2000,09/17/1996 H1N1 10/06/2009 HPV, Quadrivalent 07/11/2012,01/18/2012,10/12/20 11 Hep A, Adult 11/26/2015,09/03/2014 Hep B, ped/adol 01/15/1996,1995,1995 Hib (PRP-T) 06/13/1996, 5,1995, 995 IPV 02/24/2000, 5,1995, 995 Influenza, intranasal, quadrivalent 11/26/2015,1 ,09/05/2013 MMR 01/29/1999,06/13/1996 Meningococcal Conj (Menactra) MCV4P 11/26/2015,0 03/12/2008 Tdap 08/30/2006 Varicella 08/19/2009,09/17/1996 Family History Relation Name Status Comments Brother Alive Brother: Alive and well Father Alive Father: Elevate d cholesterol Neuropathy Mother Alive Mother: Alive a nd well Social History Tobacco Use Types Packs/Day Years Used Date Smoking Tobacco: Never Comments:Never smoker Comments Unknown Sex and Gender Information Value Date Recorded Sex Assigned at Not on file Legal Sex Female 5:11 PM EDT Gender Identity Not on file Sexual Orientation Not on file Last Filed Vital Signs Vital Sign Reading Time Taken Comments Blood Pressure 82/50 07/13/2016 12:00 AM EDT Pulse 86 11/26/2015 12:00 AM EST Temperature 37 ??C (98.6 ??F) 11/20/2013 12:00 AM EST Respiratory Rate - - Oxygen Saturation - - Inhaled Oxygen Concentration - - Weight 40.8 kg (90 lb) 07/13/2016 12:00 AM EDT Height 155.6 cm (5' 1.25 ) 07/13/2016 12:00 AM E DT Body Mass Index 16.87 07/13/2016 12:00 AM EDT Plan of Treatment Health Maintenance Due Date Last Done Comments Consider Men B Vaccine (1 of 2 - Bexsero 2-dose series) 2011 DTaP,Tdap,and Td Vaccines (7 - Td or Tdap) 08/30/2016 08/30/2006, 02/24/2000, 09/17/1996, Additional history exists Influenza Vaccines (#1) 2024 11/26/19 16, 09/03/2014, 09/05/2013 COVID-19 Vaccine ( season) 2024 Hepatitis B Vaccines Completed 01/15/1996, 1995, 1995 HIB Vaccines Completed 06/13/1996, 10/14, 1995, Additional history exists MMR Vaccines Completed 01/29/1999, 06/13/1996 IPV Vaccines Completed 02/24/2000, 10/14, 1995, Additional history exists Varicella Vaccines Completed 08/19/2009, 09/17/1996 HPV Vaccines Completed 07/11/2012, 030 05/2012, 10/12/2011 Hepatitis A Vaccines Aged Out 11/26/2015, 09/03/20 14 No longer eligible based on patient's age to complete this topic Meningococcal Vaccine Aged Out 11/26/2015, 008 No longer eligible based on patient's age to complete this topic Men B Vaccine Aged Out No longer elig ible based on patient's age to complete this topic Pneumococcal Vaccine Aged Out No long er eligible based on patient's age to complete this topic Care Teams Electric Motor Tester Assembler Relationship Specialty Start Date End Date Susan Justice MD PCP - General 06/23/17
--- OUTSIDE RECORDS SUMMARY | 2025-01-06 18:35 | XMS_ITS | Clinical Summary ---
Author Organization [facility] Address [address] [place] [address] Phone Care Team Providers Care Weigher Operator Name Role Phone GEMMA YO Primary Care Provider [phone] [facility] Unavailable [phone] Reason for Visit and Chief Complaint Established Patient Plan of Treatment 1. Continue with PT/OT 2. Discharge from our care 3. Return to see us on an as-needed basis only - Last Documented On 03/11/2024 8:32AM ; [facility] Pending Tests Order Diagnosis Results Due Ordering Derrick leavitt Follow Up - Appointment PRN Unspecif ied sprain of right foot, sequela 03/11/24 Senthil Torres MD Last Documented On 8:31AM ; [facility] Assessments Includes: Assessments from this encounter No Assessments Recorded Medical Equipment - Implanted Devices Includes: Current Devices No Medical Equipment Recorded Medications Includes: Medications discussed during this encounter and other current Medications Current Medications (continue as prescribed) Ibuprofen 600 MG Oral Tablet 03/11/2024 Provider: Diagnosis: Last Documented On 8:14AM By Tu Arguello ; [facility] Medications Administered Includes: Administered Medications from this encounter No Administered Medications Recorded Vital Signs Includes: Vital Signs from this encounter Vital Name 03/11/2024 08:13A Blood Pressure Sitting (mmHg) 108/72 Pulse Rate-Sitting (bpm) 73 Temp-Temporal 97.1 Height (in) 61 Weight (lb) 130 Body Mass Index 24.6 Body Surface Area 1.6 Oxygen Saturation (%) 99 Last Documented: On 03/11/2024 8:14AM ; [facility] Results Includes: Results discussed during this encounter No Results Recorded For Specified Dates History of Present Illness Includes: History of Present Illness from this encounter HPI The patient is a 28-year-old female. She twisted her right foot at night on 01/01/2024. X-rays showed an avulsion fracture along the lateral aspect of the right foot. The avulsion fracture appeared to come from the right cuboid. She has been treated symptomatically as a sprain. She is here today for follow-up. Social History No Social History Recorded - Smoking Status Unknown Medical History Includes: Medical History addressed during this encounter No Medical History Recorded Family History Includes: Family History addressed during this encounter No Family History Recorded Review of Systems Includes: Review of Systems from this encounter Avulsion fracture right cuboid Mental Status Includes: Mental Status from this encounter No Mental Status Recorded Functional Status Includes: Functional Status from this encounter No Functional Status Recorded Physical Exam Includes: Physical Exam from this encounter Encounters Encounter Provider Location Date Check-In Time Check-Out Time Diagnosis Established Patient Senthil Torres MD [facility], 03/11/20 24 8:00AM 8:28AM Insurance Includes: Active Insurance Policies Plan Name Member ID Group # Subscriber Relationship Effect neel Dates 1 - [employer] Plan [id number] Dakshadeirdre Saucedo Self Clinical Notes Includes: Clinical Notes from this encounter * Progress note Date Encounter Last Documented by 03/11/2024 Established Patient Last documen aviva on 03/11/2024; 8:32 AM, Senthil Torres MD; [facility] Chief Complaint Avulsion fracture from right cuboid History of Present Illness The patient is a 28-year-old female. She twisted her right foot at night on 01/01/2024. X-rays showed an avulsion fracture along the lateral aspect of the right foot. The avulsion fracture appeared to come from the right cuboid. She has been treated symptomatically as a sprain. She is here today for follow-up. Current Medication - Ibuprofen 600 MG Oral Tablet 0 days, 0 refills Physical Findings - Vitals taken 03/11/2024 08:13 am BP-Sitting 108/72 mmHg Pulse Rate-Sitting 73 bpm Temp-Temporal 97.1 F Height 61 in Weight 130 lbs Body Mass Index 24.6 kg/m2 Body Surface Area 1.6 m2 Oxygen Saturation 99 % No swelling right foot. Minimal tenderness over right cuboid. Neurovascular status right lower extremity intact. Patient ambulating with full weight on right leg without any assistive device or limp. Patient has returned to work on 02/26/2024. Patient is driving. User Defined 4 Avulsion fracture right cuboid Plan StartCited - Unspecified sprain of right foot, sequela Follow Up/Appointment: PRN EndCited 1. Continue with PT/OT 2. Discharge from our care 3. Return to see us on an as-needed basis only
--- OUTSIDE RECORDS SUMMARY | 2025-01-06 18:35 | XMS_ITS ---
Author Organization [facility] Address [address] [place] [address] Phone Care Team Providers Care Migratory Game Bird Biologist Name Role Phone GEMMA YO Primary Care Provider [phone] [facility] Un[facility] [phone] Plan of Treatment No Plan of Treatment Recorded Assessments Includes: Assessments for all patient encounters No Assessments Recorded Medical Equipment - Implanted Devices Includes: Current and historical Devices No Medical Equipment Recorded Medications Includes: Current and historical Medications Current Medications (continue as prescribed) Ibuprofen 600 MG Oral Tablet 03/11/2024 Provider: Diagnosis: Last Documented On 8:14AM By Tu Arguello ; [facility] Medications Administered Includes: Administered Medications in patient's chart No Administered Medications Recorded Vital Signs Includes: Vital Signs from 01/06/2024 through 01/06/2025 Vital Name 03/11/2024 08:13A 02/05/2024 08:34A 01/09 10:23A Blood Pressure Sitting (mmHg) 108/72 117/74 Pulse Rate-Sitting (bpm) 73 64 82 Temp-Temporal 97.1 98 97.2 Height (in) 61 61 61 Weight (lb) 130 130 129 Body Mass Index 24.6 24.6 24.4 Body Surface Area 1.6 1.6 1.6 Oxygen Saturation (%) 99 99 99 Blood Pressure Sitting R 112/70 Last Documented: On 03/11/2024 8:14AM ; [facility] On 02/05/2024 8:34AM ; [facility] On 01/09/2024 10:24AM ; [facility] Results Includes: Results from 01/06/2024 through 01/06/2025 No Results Recorded For Specified Dates History of Present Illness History of Present Illness not supported for this document type No History of Present Illness Recorded Social History No Social History Recorded - Smoking Status Unknown Procedures and Surgical History Includes: Procedures from 01/06/2024 through 01/06/2025 Procedures Code Diagnosis Performing Provider Service Location Service Date X-Ray Of Foot, complete min of 3 views (Right) [address] Unspecified sprain of right foot, initial encounter Parvin Osborne MD [facility] 02/05/2024 Last Documented On 8:42AM ; [facility] Medical History Includes: Medical History in patient's chart No Medical History Recorded Family History Includes: Family History in patient's chart No Family History Recorded Review of Systems Review of Systems not supported for this document type No Review of Systems Recorded Mental Status No Mental Status Recorded Functional Status No Functional Status Recorded Physical Exam Physical Exam not supported for this document type No Physical Exam Recorded Encounters Includes: Encounters from 01/06/2024 through 01/06/2025 Encounter Provider Location Date Check-In Time Check-Out Time Diagnosis Established Patient Senthil Torres MD [facility] 024 8:00AM 8:28AM Established Patient Parvin Osborne MD [facility] 024 8:20AM 8:48AM New Patient Parvin Osborne MD [facility] 024 10:00AM 10:26AM Insurance Includes: Active Insurance Policies Plan Name Member ID Group # Subscriber Relationship Effect neel Dates 1 - [facility] Plan [id number] Daksha Saucedo Self Clinical Notes Includes: Signed Clinical Notes starting from 10/23/2022 * Progress note Date Encounter Last Documented by 03/11/2024 Established Patient Terrell chicas on 03/11/2024; 8:32 AM, Senthil Torres MD; [facility] Chief Complaint Avulsion fracture from right cuboid [...] see us on an as-needed basis only * Progress note Date Encounter Last Documented by 02/05/2024 Established Patient Last documen aviva on 02/05/2024; 9:10 AM, Parvin Osborne MD; [facility], Physical Findings - Vitals taken 02/05/2024 08:34 [...] goes to work. Follow-up in 1 month. * Progress note Date Encounter Last Documented by 01/09/2024 New Patient Last documented on 01/09/2024; 10:33 AM, Parvin Osborne MD; [facility], Physical Findings - Vitals taken 01/09/2024 10:23 am BP-Sitting 117/74 mmHg Pulse Rate-Sitting 82 bpm Temp-Temporal 97.2 F Height 61 in Weight 129 lbs Body Mass Index 24.4 kg/m2 Body Surface Area 1.6 m2 Oxygen [...] the lateral aspect of her foot. She has been wearing a boot and be nonweightbearing. 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 Continue boot. Slowly progress weightbearing activities. Given prescription for therapy. Follow-up in 4 weeks. Out of work for the next 2 months.Ligamentous damage to the foot.
--- OUTSIDE RECORDS SUMMARY | 2025-01-06 18:35 | XMS_ITS | Encounter Summary ---
Author Organization [facility] Address [address] [place] [address] Phone Care Team Providers Care Waste Management Specialist Name Role Phone Susan Justice MD Primary Care Provider Unava ilable Encounter Details Date Type Department Care Team (Late st Contact Info) Description 01/20/2014 Documentation EM Family Medicine [address] [place] [address] Family Medicine, Physician [address] [place], [place] [address] Social History Tobacco Use Types Packs/Day Years [...] on filedocumented in this encounter Care Teams Waste Management Specialist Relationship Specialty Start Date End Date Susan Justice MD PCP - General 06/23/17 documented as of this encounter
--- OUTSIDE RECORDS SUMMARY | 2025-01-06 18:35 | XMS_ITS | Encounter Summary ---
Author Organization [facility] Address [address] [place] [address] Phone Care Team Providers Care Pie Crust Mixer Name Role Phone Susan Justice MD Primary Care Provider Unava ilable Encounter Details Date Type Department Care Team (Late st Contact Info) Description 06/29/2017 Conversion Encounter [facility] - [address] [id number] Social History Tobacco Use Types Packs/Day Years [...] on filedocumented in this encounter Care Teams Pie Crust Mixer Relationship Specialty Start Date End Date Susan Justice MD PCP - General 06/23/17 documented as of this encounter
--- OUTSIDE RECORDS SUMMARY | 2025-01-06 18:35 | XMS_ITS | Clinical Summary ---
Author Organization [facility] Address [address] [place] [address] Phone Care Team Providers Care Trade Economist Name Role Phone GEMMA YO Primary Care Provider [phone] [facility] Un[facility] [phone] Reason for Visit and Chief Complaint New Patient Plan of Treatment Pending Tests Order Diagnosis Results Due Ordering P dagmar Follow Up - Return to School / Work Note 01/09/24 Parvin trivedi MD Last Documented On 4 10:33AM ; [facility] Follow Up - Appointment 1 Month Unspecif ied sprain of right foot, initial encounter 01/09/24 Parvin Osborne MD Last Documented On 4 10:33AM ; [facility], Assessments Includes: Assessments from this encounter No Assessments Recorded Medical Equipment - Implanted Devices Includes: Current Devices No Medical Equipment Recorded Medications Includes: Medications discussed during this encounter and other current Medications Current Medications (continue as prescribed) Ibuprofen 600 MG Oral Tablet 03/11/2024 Provider: Diagnosis: Last Documented On 4 8:14AM By Tu Arguello ; [facility] Medications Administered Includes: Administered Medications from this encounter No Administered Medications Recorded Vital Signs Includes: Vital Signs from this encounter Vital Name 01/09/2024 10:23A Blood Pressure Sitting (mmHg) 117/74 Pulse Rate-Sitting (bpm) 82 Temp-Temporal 97.2 Height (in) 61 Weight (lb) 129 Body Mass Index 24.4 Body Surface Area 1.6 Oxygen Saturation (%) 99 Last Documented: On 01/09/2024 10:24A M ; [facility] Results Includes: Results discussed during this [...] next 2 months.Ligamentous damage to the foot. Mental Status Includes: Mental Status from this encounter No Mental Status Recorded Functional Status Includes: Functional Status from this encounter No Functional Status Recorded Physical Exam Includes: Physical Exam from this encounter Encounters Encounter Provider Location Date Check-In Time Check-Out Time Diagnosis New Patient Parvin Osborne MD [facility] 01/09/20 10:00AM 10:26AM Insurance Includes: Active Insurance Policies Plan Name Member ID Group # Subscriber Relationship Effect neel Dates 1 - [employer] [id number] Daksha Lasalejandro Self Clinical Notes Includes: Clinical Notes from this encounter * Progress note Date Encounter Last Documented by 01/09/2024 New Patient Last documented on 01/09/2024; 10:33 AM, Parvin Osborne MD; [facility], Physical Findings - Vitals taken 01/09/2024 10:23 [...]
== END 2025-01-06 17:40 | disposition home or self-care (01) ==
PROVIDERS: PCP Internal Medicine; Visit Provider Internal Medicine
DX: E03.9 Hypothyroidism, unspecified (principal); K21.9 Gastro-esophageal reflux disease without esophagitis; F41.1 Generalized anxiety disorder

== ENCOUNTER → 2025-01-06 16:49 | Outpatient (BNVA) | payer OTHER, SELFPAY | PROVIDERS: PCP Internal Medicine; Visit Provider Internal Medicine | DX: E03.9 Hypothyroidism, unspecified (principal); K21.9 Gastro-esophageal reflux disease without esophagitis; F41.1 Generalized anxiety disorder | CPT/HCPCS: 99212 ==

== ENCOUNTER 2025-01-09 11:37 | Outpatient (REF) | payer OTHER, SELFPAY ==
[2025-01-09 11:51] LABS: MANUAL DIFF FLAG NO
[2025-01-09 12:26] LABS: Basophils Percent Auto 0.2 % (0-2); Eosinophils Absolute Auto 0.1 X10*3/uL (0.0-0.4); Eosinophils Percent Auto 0.7 % (0-4); Hematocrit 41.2 % (37.0-47.0); Hemoglobin 14.1 g/dl (12.0-16.0); Imm Gran Abs Auto 0.03 X10*3/uL (0.00-0.03); Imm Gran Pct Auto 0.4 % (0.0-0.4); Immature Retic Fraction 4.7 % (3.0-15.9); Lymphocytes Absolute Auto 2.1 X10*3/uL (1.2-4.9); Lymphocytes Percent Auto 24.7 % (20-40); Mean Corpuscular HGB Conc 34.2 g/dl (31.0-35.0); Mean Corpuscular Hemoglobin 29.6 pg (27.0-33.0); Mean Corpuscular Volume 86.6 fL (80.0-98.0); Mean Platelet Volume 9.5 fL (9.4-12.3); Monocytes Absolute Auto 0.6 X10*3/uL (0.1-1.2); Monocytes Percent Auto 6.5 % (2-11); Neutrophils Absolute Auto 5.7 x10*3/uL (2.0-8.3); Neutrophils Percent Auto 67.5 % (45-73); Platelet Count 347 X10*3/uL (160-400); Red Blood Count 4.76 X10*6/uL (4.20-5.50); Red Cell Distribution Width 12.7 % (11.0-16.0); Retic HGB Equivalent 33.5 pg (30.0-35.0); Reticulocyte Percent 1.6 % (0.5-1.8); Reticulocytes Absolute 0.075 X10*6/uL (0.026-0.095); White Blood Count 8.4 X10*3/uL (4.8-10.8)
[2025-01-09 12:50] LABS: Appearance Urine Cloudy; Color Urine Yellow; Glucose Urine UA Negative (Negative); Leukocyte Esterase Urine Large (3+) (Negative); Nitrite Urine Negative (Negative); UMIC TRIGGER UA YES; UMIC TRIGGER UACC YES; Urine Blood Trace (Negative); Urine Ketones Negative (Negative); Urine Protein Negative (Neg-Trace)
[2025-01-09 12:58] LABS: Bacteria Urine 4+ (None Seen); Hyaline Casts Urine 0-2 /LPF (0-2); RBC Urine 0-2 /HPF (0-2); UACC Culture Trigger YES; WBC Urine >50 /HPF (0-5)
[2025-01-09 13:02] LABS: Erythrocyte Sedimentation Rate 4 MM/HR (0-20)
[2025-01-09 13:15] LABS: Alanine Aminotransferase 9 U/L (0-31); Albumin Level 4.3 g/dL (3.5-5.0); Alkaline Phosphatase 51 U/L (39-117); Anion Gap 12 (12-20); Aspartate Amino Transferase 17 U/L (5-31); Bilirubin Total 0.9 mg/dL (0.0-1.0); Blood Urea Nitrogen 10 mg/dL (9-16); C Reactive Protein 0.41 mg/dL (< or = 0.50); Calcium 9.4 mg/dL (8.4-10.2); Carbon Dioxide 22 mmol/L (22-29); Chloride 108 mmol/L (96-108); Cholesterol 206 mg/dL (<200); Estimated Glomerular Filt Rate > 60; Glucose Random 75 mg/dL (60-115); HDL Cholesterol 67 mg/dL (>40); Iron 176 mcg/dL (30-160); LDL Cholesterol Calculated 118 mg/dL (<100); Magnesium 1.9 mg/dL (1.6-2.6); Percent Iron Saturation 52 % (15-50); Sodium 138 mmol/L (135-145); Total Iron Binding Capacity 339 mcg/dL (228-428); Total Protein 7.7 g/dL (6.5-8.0); Triglycerides 108 mg/dL (<150); Unsaturated Iron Binding 163 ug/dL
[2025-01-09 13:23] LABS: Ferritin 63 ng/mL (10-122); Free T4 (Free Thyroxine) 0.97 ng/dL (0.71-1.85); Thyroid Stimulating Hormone 0.58 uIU/mL (0.32-4.0)
--- OUTSIDE RECORDS SUMMARY | 2025-01-09 14:07 | XMS_ITS | Clinical Summary ---
Author Organization [facility] Address [address] [place] [address] Phone Care Team Providers Care Dry Paste Supervisor Name Role Phone GEMMA YO Primary Care Provider [phone] [facility] Un[facility] [phone] Reason for Visit and Chief Complaint Established Patient Plan of Treatment Pending Tests Order Diagnosis Results Due Ordering P dagmar Follow Up - Return to School / Work Note 02/05/24 Parvin trivedi MD Last Documented On 4 9:10AM ; [facility] Follow Up - Appointment 1 Month Unspecif ied sprain of right foot, initial encounter 02/05/24 Parvin Osborne MD Last Documented On 4 9:09AM ; [facility] Assessments Includes: Assessments from this encounter No Assessments Recorded Medical Equipment - Implanted Devices Includes: Current Devices No Medical Equipment Recorded Medications Includes: Medications discussed during this encounter and other current Medications Current Medications (continue as prescribed) Ibuprofen 600 MG Oral Tablet 03/11/2024 Provider: Diagnosis: Last Documented On 4 8:14AM By Tu Arguello ; [facility] Medications Administered Includes: Administered Medications from this encounter No Administered Medications Recorded Vital Signs Includes: Vital Signs from this encounter Vital Name 02/05/2024 08:34A Blood Pressure Sitting R 112/70 Pulse Rate-Sitting (bpm) 64 Temp-Temporal 98 Height (in) 61 Weight (lb) 130 Body Mass Index 24.6 Body Surface Area 1.6 Oxygen Saturation (%) 99 Last Documented: On 02/05/2024 8:34AM ; [facility] Results Includes: Results discussed during [...] Foot, complete min of 3 views (Right) [address] Unspecified sprain of right foot, initial encounter Parvin Osborne MD [facility], 02/05/2024 Last Documented On 4 8:42AM ; [facility], Medical History Includes: Medical History addressed during [...] Time Diagnosis Established Patient Parvin Osborne MD [facility], 024 8:20AM 8:48AM Insurance Includes: Active Insurance Policies Plan Name Member ID Group # Subscriber Relationship Effect neel Dates 1 - [employer] [id number] Daksha Pozo Clinical Notes Includes: Clinical Notes from this encounter * Progress note Date Encounter Last Documented by 02/05/2024 Established Patient Terrell jyotirosa chicas on 02/05/2024; 9:10 AM, Parvin Osborne MD; [facility], Physical Findings - Vitals taken 02/05/2024 08:34 [...]
--- OUTSIDE RECORDS SUMMARY | 2025-01-09 14:07 | XMS_ITS | Encounter Summary ---
Author Organization [facility] Address [address] [place] [address] Phone Care Team Providers Care Aircraft Engine Specialist Name Role Phone Susan Justice MD Primary Care Provider Unava ilable Encounter Details Date Type Department Care Team (Late st Contact Info) Description 01/18/2010 Documentation [facility] [address] [place] [address] Family Medicine, Physician [address] [place], [place] [address] Social History Tobacco Use Types Packs/Day Years [...] on filedocumented in this encounter Care Teams Aircraft Engine Specialist Relationship Specialty Start Date End Date Susan Justice MD PCP - General 06/23/17 documented as of this encounter
--- OUTSIDE RECORDS SUMMARY | 2025-01-09 14:07 | XMS_ITS | Encounter Summary ---
Author Organization [facility] Address [address] [place] [address] Phone Care Team Providers Care Sales Representative Trainee Name Role Phone Susan Justice MD Primary Care Provider Unava ilable Encounter Details Date Type Department Care Team (Late st Contact Info) Description 01/18/2010 Documentation [facility] [address] [place] [address] Family Medicine, Physician [address] [place], [place] [address] Social History Tobacco Use Types Packs/Day Years [...] on filedocumented in this encounter Care Teams Sales Representative Trainee Relationship Specialty Start Date End Date Susan Justice MD PCP - General 06/23/17 documented as of this encounter
--- OUTSIDE RECORDS SUMMARY | 2025-01-09 14:07 | XMS_ITS | Clinical Summary ---
Author Organization [facility] Address [address] [place] [address] Care Team Providers Care Publication Manager Name Role Phone Aniket Gonzalez MD Primary Care Provider [phone] Medical History Medical History Date Comments Anxiety [...] age to complete this topic Care Teams Publication Manager Relationship Specialty Start Date End Date Aniket Gonzalez MD [address] [place] [address] [address] [facility] [place] [address] PCP - General Internal Medicine 01/16/20
--- OUTSIDE RECORDS SUMMARY | 2025-01-09 14:08 | XMS_ITS | Clinical Summary ---
Author Organization [facility] Address [address] [place] [address] Phone Care Team Providers Care Burner Operator Name Role Phone Susan Justice MD Primary [...] Health Maintenance Due Date Last Done Comments DTaP,Tdap,and Td Vaccines (7 - Td or [...] Completed 08/19/2009, 09/17/1996 HPV Vaccines Completed 07/11/2012, 05/2012, 10/12/2011 Hepatitis A Vaccines Aged Out [...] age to complete this topic Care Teams Burner Operator Relationship Specialty Start Date End Date Susan Justice MD PCP - General 06/23/17
--- OUTSIDE RECORDS SUMMARY | 2025-01-09 14:08 | XMS_ITS | Encounter Summary ---
Author Organization [facility] Address [address] [place] [address] Phone Care Team Providers Care Biometric Technician Name Role Phone Susan Justice MD Primary Care Provider Unava ilable Encounter Details Date Type Department Care Team (Late st Contact Info) Description 06/29/2017 Conversion Encounter [facility] - [address] [id number] Social History Tobacco Use Types Packs/Day Years [...] on filedocumented in this encounter Care Teams Biometric Technician Relationship Specialty Start Date End Date Susan Justice MD PCP - General 06/23/17 documented as of this encounter
--- OUTSIDE RECORDS SUMMARY | 2025-01-09 14:08 | XMS_ITS ---
Author Organization [facility] Address [address] [place] [address] Phone Care Team Providers Care Design/Animation Instructor Name Role Phone GEMMA YO Primary Care Provider [phone] [facility] Un[facility] [phone] Plan of Treatment No Plan of Treatment Recorded Assessments Includes: Assessments for all patient encounters No Assessments Recorded Medical Equipment - Implanted Devices Includes: Current and historical Devices No Medical Equipment Recorded Medications Includes: Current and historical Medications Current Medications (continue as prescribed) Ibuprofen 600 MG Oral Tablet 03/11/2024 Provider: Diagnosis: Last Documented On 8:14AM By Tu Arguello ; [facility] Medications Administered Includes: Administered Medications in patient's chart No Administered Medications Recorded Vital Signs Includes: Vital Signs from 01/09/2024 through 01/09/2025 Vital Name 03/11/2024 08:13A 02/05/2024 08:34A 01/09 10:23A Blood Pressure Sitting (mmHg) 108/72 117/74 Pulse Rate-Sitting (bpm) 73 64 82 Temp-Temporal 97.1 98 97.2 Height (in) 61 61 61 Weight (lb) 130 130 129 Body Mass Index 24.6 24.6 24.4 Body Surface Area 1.6 1.6 1.6 Oxygen Saturation (%) 99 99 99 Blood Pressure Sitting R 112/70 Last Documented: On 03/11/2024 8:14AM ; [facility] On 02/05/2024 8:34AM ; [facility] On 01/09/2024 10:24AM ; [facility] Results Includes: Results from 01/09/2024 through 01/09/2025 No Results Recorded For Specified Dates History of Present Illness History of Present Illness not supported for this document type No History of Present Illness Recorded Social History No Social History Recorded - Smoking Status Unknown Procedures and Surgical History Includes: Procedures from 01/09/2024 through 01/09/2025 Procedures Code Diagnosis Performing Provider Service Location Service Date X-Ray Of Foot, complete min of 3 views (Right) [address] Unspecified sprain of right foot, initial encounter Parvin Osborne MD [facility] 02/05/2024 Last Documented On 8:42AM ; [facility] Medical History Includes: Medical History in [...] Physical Exam Recorded Encounters Includes: Encounters from 01/09/2024 through 01/09/2025 Encounter Provider Location Date Check-In Time Check-Out Time Diagnosis Established Patient [facility]enthil Torres [facility] 0[facility] 8:00AM 8:28AM Established Patient Parvin Osborne MD [facility] 024 8:20AM 8:48AM New Patient [facility] 0[facility] 10:00AM 10:26AM Insurance Includes: Active Insurance Policies Plan Name Member ID Group # Subscriber Relationship Effect neel Dates 1 - [facility] Health Plan [id number] Daksha Saucedo Self Clinical Notes Includes: Signed Clinical Notes starting from 10/23/2022 * Progress note Date Encounter Last Documented by 03/11/2024 Established Patient Terrell chicas on 03/11/2024; 8:32 AM, Senthil Torres MD; [facility] Chief Complaint Avulsion fracture from right [...] on 02/05/2024; 9:10 AM, Parvin Osborne MD; [facility], Physical Findings - Vitals taken 02/05/2024 08:34 [...] on 01/09/2024; 10:33 AM, Parvin Osborne MD; [facility], Physical Findings - Vitals taken 01/09/2024 10:23 [...]
--- OUTSIDE RECORDS SUMMARY | 2025-01-09 14:08 | XMS_ITS | Clinical Summary ---
Author Organization [facility] Address [address] [place] [address] Phone Care Team Providers Care Executive Producer Promos Name Role Phone GEMMA YO Primary Care Provider [phone] [facility] Unavailable [phone] Reason for Visit and Chief Complaint Established [...] On 4 8:14AM By Tu Arguello ; [facility] Medications Administered Includes: Administered Medications from this [...] Subscriber Relationship Effect neel Dates 1 - [employer] [id number] Daksha Saucedo Self Clinical Notes Includes: Clinical Notes from this encounter No Clinical Notes Recorded
--- OUTSIDE RECORDS SUMMARY | 2025-01-09 14:08 | XMS_ITS | Clinical Summary ---
Author Organization [place] [facility] Address [address] [place] [address] Phone Care Team Providers Care Softlines Supervisor Name Role Phone GEMMA YO Primary Care Provider [phone] [facility] Unavailable [phone] Reason for Visit and Chief Complaint Established Patient Plan of Treatment 1. Continue with PT/OT 2. Discharge from our care 3. Return to see us on an as-needed basis only - Last Documented On 03/11/2024 8:32AM ; [facility] Pending Tests Order Diagnosis Results Due Ordering Derrick leavitt Follow Up - Appointment PRN Unspecif ied sprain of right foot, sequela 03/11/24 Senthil Torres MD Last Documented On 8:31AM ; [facility] Assessments Includes: Assessments from this encounter No Assessments Recorded Medical Equipment - Implanted Devices Includes: Current Devices No Medical Equipment Recorded Medications Includes: Medications discussed during this encounter and other current Medications Current Medications (continue as prescribed) Ibuprofen 600 MG Oral Tablet 03/11/2024 Provider: Diagnosis: Last Documented On 8:14AM By Tu Arguello ; [facility] Medications Administered Includes: Administered Medications from this encounter No Administered Medications Recorded Vital Signs Includes: Vital Signs from this encounter Vital Name 03/11/2024 08:13A Blood Pressure Sitting (mmHg) 108/72 Pulse Rate-Sitting (bpm) 73 Temp-Temporal 97.1 Height (in) 61 Weight (lb) 130 Body Mass Index 24.6 Body Surface Area 1.6 Oxygen Saturation (%) 99 Last Documented: On 03/11/2024 8:14AM ; [facility] Results Includes: Results discussed during this encounter [...] Time Diagnosis Established Patient Senthil Torres MD [facility], 03/11/20 24 8:00AM 8:28AM Insurance Includes: Active Insurance Policies Plan Name Member ID Group # Subscriber Relationship Effect neel Dates 1 - [employer] Plan [id number] Dakshadeirdre Saucedo Self Clinical Notes Includes: Clinical Notes from this encounter * Progress note Date Encounter Last Documented by 03/11/2024 Established Patient Last documen aviva on 03/11/2024; 8:32 AM, Senthil Torres MD; [facility] Chief Complaint Avulsion fracture from right cuboid [...]
--- OUTSIDE RECORDS SUMMARY | 2025-01-09 14:08 | XMS_ITS | Clinical Summary ---
Author Organization [facility] Address [address] [place] [address] Care Team Providers Care Direct Selling Counselor Name Role Phone Unavailable Primary Care Provider [...] Daksha Saucedo Personal/Family Self 1995 [address] [facility] [place] [address]
--- OUTSIDE RECORDS SUMMARY | 2025-01-09 14:08 | XMS_ITS | Clinical Summary ---
Author Organization [place] [facility] Address [address] [place] [address] Phone Care Team Providers Care School Principal Name Role Phone GEMMA YO Primary Care Provider [phone] [facility] [phone] Reason for Visit and Chief Complaint New Patient Plan of Treatment Pending Tests Order Diagnosis Results Due Ordering P dagmar Follow Up - Return to School / Work Note 01/09/24 Parvin trivedi MD Last Documented On 4 10:33AM ; [facility] Follow Up - Appointment 1 Month Unspecif ied sprain of right foot, initial encounter 01/09/24 Parvin Osborne MD Last Documented On 4 10:33AM ; [facility], Assessments Includes: Assessments from this encounter No Assessments Recorded Medical Equipment - Implanted Devices Includes: Current Devices No Medical Equipment Recorded Medications Includes: Medications discussed during this encounter and other current Medications Current Medications (continue as prescribed) Ibuprofen 600 MG Oral Tablet 03/11/2024 Provider: Diagnosis: Last Documented On 4 8:14AM By Tu Arguello ; [facility] Medications Administered Includes: Administered Medications from this encounter No Administered Medications Recorded Vital Signs Includes: Vital Signs from this encounter Vital Name 01/09/2024 10:23A Blood Pressure Sitting (mmHg) 117/74 Pulse Rate-Sitting (bpm) 82 Temp-Temporal 97.2 Height (in) 61 Weight (lb) 129 Body Mass Index 24.4 Body Surface Area 1.6 Oxygen Saturation (%) 99 Last Documented: On 01/09/2024 10:24A M ; [facility] Results Includes: Results discussed during this encounter [...] Time Diagnosis New Patient Parvin Osborne MD [place] [facility] 01/09/20 10:00AM 10:26AM Insurance Includes: Active Insurance Policies Plan Name Member ID Group # Subscriber Relationship Effect neel Dates 1 - [employer] Plan [id number] Daksha Lasalejandro Self Clinical Notes Includes: Clinical Notes from this encounter * Progress note Date Encounter Last Documented by 01/09/2024 New Patient Last documented on 01/09/2024; 10:33 AM, Parvin Osborne MD; [facility], Physical Findings - Vitals taken 01/09/2024 10:23 [...]
--- OUTSIDE RECORDS SUMMARY | 2025-01-09 14:08 | XMS_ITS | Encounter Summary ---
Author Organization [facility] Address [address] [place] [address] Phone Care Team Providers Care Home Health Clinical Liaison Name Role Phone Susan Justice MD Primary Care Provider Unava ilable Encounter Details Date Type Department Care Team (Late st Contact Info) Description 01/20/2014 Documentation [facility] Family Medicine [address] [place] [address] Family Medicine, Physician [address] [place], [place] [address] Social History Tobacco Use Types Packs/Day Years [...] on filedocumented in this encounter Care Teams Home Health Clinical Liaison Relationship Specialty Start Date End Date Susan Justice MD PCP - General 06/23/17 documented as of this encounter
--- OUTSIDE RECORDS SUMMARY | 2025-01-09 14:08 | XMS_ITS ---
Care Plan - [facility] Created on: January 09, 2025 Daksha Saucedo : 1995 Sex: Female Author Organization [facility] Address [address] [place] [address] Phone Care Team Providers Care Home Energy Consultant Name Role Phone GEMMA YO Primary Care Provider [phone] [facility] Unavailable [phone]
== END 2025-01-09 11:38 | disposition home or self-care (01) ==
LOC: HO.LAB 11:37
PROVIDERS: PCP Internal Medicine; Visit Provider Internal Medicine
DX: K62.5 Hemorrhage of anus and rectum (principal); D50.9 Iron deficiency anemia, unspecified; E78.00 Pure hypercholesterolemia, unspecified; R30.0 Dysuria
CPT/HCPCS: 36415; 80053; 80061; 81001; 82728; 83540; 83735; 84439; 84443; 85025; 85045; 85652; 86140; 87086

== ENCOUNTER 2025-01-27 14:34 | Outpatient (REF) | payer OTHER, SELFPAY ==
[2025-01-27 15:25] LABS: Appearance Urine Clear; Color Urine Dark Yellow; Glucose Urine UA Negative (Negative); Leukocyte Esterase Urine Trace (Negative); Nitrite Urine Negative (Negative); Specific Gravity - Urine >= 1.030 (1.005-1.025); UMIC TRIGGER UACC YES; Urine Blood Negative (Negative); Urine Ketones Trace mg/dL (Negative); Urine Protein Trace mg/dL (Neg-Trace)
[2025-01-27 15:42] LABS: Bacteria Urine None Seen (None Seen); Hyaline Casts Urine 0-2 /LPF (0-2); RBC Urine 0-2 /HPF (0-2); Squamous Epithelial Cell Urine 0-2 /HPF (0-2); WBC Urine 0-5 /HPF (0-5)
== END 2025-01-27 14:35 | disposition home or self-care (01) ==
LOC: HO.LAB 14:34
PROVIDERS: PCP Internal Medicine; Visit Provider Internal Medicine
DX: R30.0 Dysuria (principal)
CPT/HCPCS: 81001

== ENCOUNTER 2025-03-25 15:30 | Outpatient (REF) | payer OTHER, SELFPAY ==
--- OUTSIDE RECORDS SUMMARY | 2025-03-25 16:39 | XMS_ITS | Clinical Summary ---
Author Organization [facility] Address [address] [place] [address] Care Team Providers Care Wire Charger Name Role Phone Aniket Gonzalez MD Primary Care Provider [phone] Medical History Medical History Date Comments Anxiety [...] age to complete this topic Care Teams Wire Charger Relationship Specialty Start Date End Date Aniket Gonzalez MD [address] [place] [address] [address] [facility] [place] [address] PCP - General Internal Medicine 01/16/20
--- OUTSIDE RECORDS SUMMARY | 2025-03-25 16:39 | XMS_ITS | Encounter Summary ---
Author Organization [facility] Address [address] [place] [address] Phone Care Team Providers Care Security Controls Assessor Name Role Phone Susan Justice MD Primary Care Provider Unava ilable Encounter Details Date Type Department Care Team (Late st Contact Info) Description 01/20/2014 Documentation [facility] [address] [place] [address] Family Medicine, Physician [address] [place], [place] [phone] Social History Tobacco Use Types Packs/Day Years [...] on filedocumented in this encounter Care Teams Security Controls Assessor Relationship Specialty Start Date End Date Susan Justice MD PCP - General 06/23/17 documented as of this encounter
--- OUTSIDE RECORDS SUMMARY | 2025-03-25 16:39 | XMS_ITS | Clinical Summary ---
Author Organization [facility] Address [address] [place] [address] Phone Care Team Providers Care Can Line Examiner Name Role Phone Susan Justice MD Primary [...] age to complete this topic Care Teams Can Line Examiner Relationship Specialty Start Date End Date Susan Justice MD PCP - General 06/23/17
--- OUTSIDE RECORDS SUMMARY | 2025-03-25 16:39 | XMS_ITS | Encounter Summary ---
Author Organization [facility] Address [address] [place] [address] Phone Care Team Providers Care Former Hand Name Role Phone Susan Justice MD Primary Care Provider Unava ilable Encounter Details Date Type Department Care Team (Late st Contact Info) Description 01/18/2010 Documentation [facility] [address] [place] [address] Family Medicine, Physician [address] [place], [place] [address] Social History Tobacco Use Types Packs/Day Years [...] on filedocumented in this encounter Care Teams Former Hand Relationship Specialty Start Date End Date Susan Justice MD PCP - General 06/23/17 documented as of this encounter
--- OUTSIDE RECORDS SUMMARY | 2025-03-25 16:39 | XMS_ITS | Encounter Summary ---
Author Organization [facility] Address [address] [place] [address] Phone Care Team Providers Care Grocery Cashier Name Role Phone Susan Justice MD Primary Care Provider Unava ilable Encounter Details Date Type Department Care Team (Late st Contact Info) Description 06/29/2017 Conversion Encounter [facility] - [address] [phone] Social History Tobacco Use Types Packs/Day Years [...] on filedocumented in this encounter Care Teams Grocery Cashier Relationship Specialty Start Date End Date Susan Justice MD PCP - General 06/23/17 documented as of this encounter
--- OUTSIDE RECORDS SUMMARY | 2025-03-25 16:39 | XMS_ITS | Clinical Summary ---
Author Organization [facility] Address [address] [place] [address] Care Team Providers Care Resident Surgeon Name Role Phone Unavailable Primary Care Provider [...] Daksha Saucedo Personal/Family Self 1995 [address] [place] [address]
--- OUTSIDE RECORDS SUMMARY | 2025-03-25 16:39 | XMS_ITS | Encounter Summary ---
Author Organization [facility] Address [address] [place] [phone] Phone Care Team Providers Care Commercial Credit Reviewer Name Role Phone Susan Justice MD Primary Care Provider Unava ilable Encounter Details Date Type Department Care Team (Late st Contact Info) Description 01/18/2010 Documentation [facility] [address] [place] [address] Family Medicine, Physician [address] [place], [place] [phone] Social History Tobacco Use Types Packs/Day Years [...] on filedocumented in this encounter Care Teams Commercial Credit Reviewer Relationship Specialty Start Date End Date Susan Justice MD PCP - General 06/23/17 documented as of this encounter
[2025-03-28 15:20] LABS: HPV High Risk Negative (Negative)
[2025-03-28 15:21] LABS: HPV Genotype 16 Negative (Negative); HPV Genotype 18 Negative (Negative)
== END 2025-03-25 15:31 | disposition home or self-care (01) ==
LOC: HO.LNP 15:30
PROVIDERS: PCP Internal Medicine; Visit Provider Obstetrics & Gynecology
DX: Z01.419 Encounter for gynecological examination (general) (routine) without abnormal findings (principal)
CPT/HCPCS: 87626; 88175; 99395; 99459

== ENCOUNTER 2025-03-25 15:30 | Outpatient (AMB) | payer OTHER, SELFPAY ==
--- NOTE | 2025-03-25 15:34 | MHC.OFFVIS ---
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 DO NOT RS Scrap Sorter Required: No Information Interpreted: non-clinical & clinical Thermal Surfacing Machine Operator: Thermal Surfacing Machine Operator Present (Dionne Garza GONZALEZ) Accompanied by: Self / Same As Patient Allergies hydromorphone [Dilaudid] Allergy (Intermediate, Verified 03/25/25 15:59) sob itching, vomiting metronidazole Allergy (Intermediate, Verified 03/25/25 15:59) Mood Swings codeine [CODEINE] Adverse Reaction (Intermediate, Verified 03/25/25 15:59) N/V Is last menstrual period known: Yes Last menstrual period: 03/11/25 HPI Comments Details: Presenting for annual exam. No complaints. Last Pap smear was done in 12/05 and was negative [facility] Medical History Rectal bleeding Well woman exam Annual physical exam Foot pain, right Pain of right middle finger Leg swelling Muscle spasm Vitamin B12 deficiency Vaginal discharge UTI (urinary tract infection) Constipation Vitamin D deficiency History of Graves' disease Renal calculus, right Pancreatitis Intussusception Psoriasis Mild asthma Anxiety Esophageal stricture GERD (gastroesophageal reflux disease) Hypothyroidism Surgical History H/O radioactive iodine thyroid ablation Hx of colonoscopy History of surgery History of nasal surgery History of biopsy History of nasal cauterization History of wisdom tooth extraction History of endoscopy History of tonsillectomy Family History Father Elevated cholesterol Neuropathy Throat cancer Mother Raynauds syndrome Cervical cancer Sister Cervical cancer Paternal Grandmother Heart problem Heart attack Maternal Grandmother Lung cancer Paternal Grandfather Thyroid cancer Social History Household Members: Family Housing: House Are you a primary transition of care specialist to a significant other at home: No Do you presently have visiting nurse or other home services: No Alcohol intake: current Alcohol intake frequency: holidays/special occasions only Comment: once a month1-3 drinks Patient Tobacco Use Status: Never used Tobacco e-Cigarette/Vaping Use: Never Used Second Hand Smoke Exposure: Yes (Parents are smokers) service: No Current occupational status: employed 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 Current occupational exposures/hazards: No Sexual orientation: Straight/Heterosexual Gender identity: Female Cognitive needs: No Hearing needs: No Vision needs: Yes Female Reproductive History Menstrual Age of Menarche: 13 Date of last menstrual period: 03/11/25 Date of last pap smear: 11/23/22 Review of Systems Const All systems reviewed & are unremarkable except as noted in HPI and below Card Reports as per HPI Resp Reports as per HPI GI Reports as per HPI and Reports no additional complaints Reports as per HPI Physical Exam Vital Signs: Last Vital Signs BP 116/74 03/25/25 15:37 BMI result Body Mass Index 23.6 Const General: cooperative, healthy appearing and comfortable Chest Chest palpation & inspection: normal inspection of the chest and normal palpation of entire chest wall Breast/axilla inspection: normal inspection of the breasts and normal inspection of the axillae Breast/axilla palpation: normal palpation of the breasts, normal palpation of the axillae and no axillary lymphadenopathy Resp Effort & Inspection: normal respiratory effort Auscultation: clear to auscultation bilaterally Percussion: percussion normal Cardio Palpation: normal PMI Rate: regular rate Rhythm: regular rhythm Heart sounds: no murmurs and no rubs Peripheral pulses: Peripheral pulses 2+ throughout GI Inspection: Yes normal to inspection Palpation (GI): Soft to palpation, nontender, no guarding, not rigid and No hepatosplenomegaly present Percussion: Yes normal to percussion Auscultation: normal bowel sounds Rectal Exam - Female: deferred General: Yes bladder normal to palpation External Female Exam: No lesion Speculum Exam - Vagina: normal appearance of the vagina, normal palpation, normal vaginal discharge and not erythematous Speculum Exam - Cervix: normal appearance of the cervix and normal palpation Bimanual exam- vagina & uterus: normal bimanual exam, normal palpation, uterine size normal, bladder normal to palpation, consistency normal and normal palpation Bimanual Exam- Adnexa, other: normal adnexae, no masses and no tenderness Assessment & Plan Assessment & Plan (1) Well woman exam: Code(s): Z01.419 - Encounter for gynecological examination (general) (routine) without abnormal findings Category: Medical Plan: Cotesting done since the patient will turn 30 within few weeks. Counseled the patient about the recommended dietary allowance of 1000 mg of Calcium & 600 IU of vitamin D. The patient was instructed to perform monthly self-breast exams and to schedule an annual exam in a year; All questions answered and the patient verbalized understanding. Instructed the patient to schedule annual exam in a year Coding Level of Care Code Est Pt Prev Care 18-39y(39515) Diagnoses Well woman exam Z01.419
[2025-03-25 15:37] VITALS: BP 116/74; BMI 23.6
--- OUTSIDE RECORDS SUMMARY | 2025-03-25 16:18 | XMS_ITS | Encounter Summary ---
Author Organization [facility] Address [address] [place] [address] Phone Care Team Providers Care Processing Inspector Name Role Phone Susan Justice MD Primary Care Provider Unava ilable Encounter Details Date Type Department Care Team (Late st Contact Info) Description 01/18/2010 Documentation [facility] [address] [place] [address] Family Medicine, Physician [address] [place], [place] [id number] Social History Tobacco Use Types Packs/Day Years [...] on filedocumented in this encounter Care Teams Processing Inspector Relationship Specialty Start Date End Date Susan Justice MD PCP - General 06/23/17 documented as of this encounter
--- OUTSIDE RECORDS SUMMARY | 2025-03-25 16:18 | XMS_ITS | Encounter Summary ---
Author Organization [facility] Address [address] [place] [address] Phone Care Team Providers Care Dog Licenser Name Role Phone Susan Justice MD Primary Care Provider Unava ilable Encounter Details Date Type Department Care Team (Late st Contact Info) Description 01/20/2014 Documentation [facility] [address] [place] [address] Family Medicine, Physician [address] [place], [place] [address] Social History Tobacco Use Types Packs/Day Years [...] on filedocumented in this encounter Care Teams Dog Licenser Relationship Specialty Start Date End Date Susan Justice MD PCP - General 06/23/17 documented as of this encounter
--- OUTSIDE RECORDS SUMMARY | 2025-03-25 16:18 | XMS_ITS | Clinical Summary ---
Author Organization [facility] Address [address] [place] [address] Care Team Providers Care Supervisor Cd Area Name Role Phone Unavailable Primary Care Provider [...] Daksha Saucedo Personal/Family Self 1995 [address] [place] [address]
--- OUTSIDE RECORDS SUMMARY | 2025-03-25 16:18 | XMS_ITS | Clinical Summary ---
Author Organization [facility] Address [address] [place] [address] Phone Care Team Providers Care Supervisor Dumping Name Role Phone Susan Justice MD Primary [...] age to complete this topic Care Teams Supervisor Dumping Relationship Specialty Start Date End Date Susan Justice MD PCP - General 06/23/17
--- OUTSIDE RECORDS SUMMARY | 2025-03-25 16:18 | XMS_ITS | Encounter Summary ---
Author Organization [facility] Address [address] [place] [address] Phone Care Team Providers Care Shine Worker Name Role Phone Susan Justice MD Primary Care Provider Unava ilable Encounter Details Date Type Department Care Team (Late st Contact Info) Description 06/29/2017 Conversion Encounter [facility] - [address] [phone] Social History Tobacco Use Types Packs/Day Years [...] on filedocumented in this encounter Care Teams Shine Worker Relationship Specialty Start Date End Date Susan Justice MD PCP - General 06/23/17 documented as of this encounter
--- OUTSIDE RECORDS SUMMARY | 2025-03-25 16:18 | XMS_ITS | Clinical Summary ---
Author Organization [facility] Address [address] [place] [address] Care Team Providers Care Bioanalyst Name Role Phone Aniket Gonzalez MD Primary Care Provider [phone] Medical History Medical History Date Comments Anxiety 06/12/2022 DX:Anxiety Esophageal stricture 06/12/2022 DX:Esophage al stricture GERD (gastroesophageal reflux disease) 06/12/2022 DX:GERD (gastroesophageal reflux disease) History of Graves' disease 06/12/2022 DX:Hi story of Graves' disease Intussusception (CMS/HCC V24 , CMS/HCC V28) 06/12/2022 DX:Intussusception (HCC) Mild asthma 06/12/2022 DX:Mild asthma History [...] - 2023-2 5 season) 2024 Influenza Vaccine (Season Ended) 2025 07/10/2019, 07/27/2018, 11/26/2015 DTaP,Tdap,and Td Vaccines (3 - [...] age to complete this topic Meningococcal B Vaccine Aged Out No l onger eligible based on patient's age to complete this topic RSV Immunization Patients Under 20 months Aged Out No longer eligible b ased on patient's age to complete this topic Care Teams Bioanalyst Relationship Specialty Start Date End Date Aniket Gonzalez MD [address] [place] [address] [address] [facility] [place] [address] PCP - General Internal Medicine 01/16/20
--- OUTSIDE RECORDS SUMMARY | 2025-03-25 16:18 | XMS_ITS | Encounter Summary ---
Author Organization [facility] Address [address] [place] [address] Phone Care Team Providers Care Sheet Heater Helper Name Role Phone Susan Justice MD Primary Care Provider Unava ilable Encounter Details Date Type Department Care Team (Late st Contact Info) Description 01/18/2010 Documentation [facility] [address] [place] [address] Family Medicine, Physician [address] [place], [place] [phone] Social History Tobacco Use Types Packs/Day Years [...] on filedocumented in this encounter Care Teams Sheet Heater Helper Relationship Specialty Start Date End Date Susan Justice MD PCP - General 06/23/17 documented as of this encounter
== END 2025-03-25 16:21 | disposition home or self-care (01) ==
LOC: HO.HWS 15:30
PROVIDERS: PCP Internal Medicine; Visit Provider Obstetrics & Gynecology
DX: Z01.419 Encounter for gynecological examination (general) (routine) without abnormal findings (principal)
CPT/HCPCS: 99395; 99459

== ENCOUNTER 2025-04-24 15:30 | Outpatient (AMB) | payer OTHER, SELFPAY ==
[2025-04-24 15:34] VITALS: BP 118/62; PULSE 74; RESP 18; O2SAT 99
--- NOTE | 2025-04-24 15:34 | MHC.PC.OV ---
Vital Signs 04/24/25 15:34 Height 5 ft 1 in BP 118/62 Blood Pressure Location Lt brachial Position Sitting Respiration 18 Pulse 74 Pulse Source Pulse Oximeter Pulse Oximetry (%) 99 Oxygen Delivery Method Room Air Intake Visit Reasons: 3 month flushing, hairing thinning Paving Foreman Required: No Sub Plant Manager: Present Accompanied by: Self / Same As Patient Allergies hydromorphone [Dilaudid] Allergy (Intermediate, Verified 04/24/25 15:41) sob itching, vomiting metronidazole Allergy (Intermediate, Verified 04/24/25 15:41) Mood Swings codeine [CODEINE] Adverse Reaction (Intermediate, Verified 04/24/25 15:41) N/V Medication List - Last Reconciled 04/24/25 by Aniket Gonzalez MD calcipotriene 0.005% appl topical cetirizine mg PO clindamycin phosphate 1% 1 appl topical BID desogestrel-ethinyl estradiol 0.15-0.03 mg (Apri) 1 tab PO DAILY 84 days levothyroxine 75 mcg PO DAILY 90 days minocycline mg PO DAILY multivitamin (Daily Multi-Vitamin tablet) 1 tab PO DAILY pantoprazole 20 mg PO QAM paroxetine HCl 10 mg PO BEDTIME triamcinolone acetonide 0.1% 1 appl topical BID-TID Tobacco use date assessed: 04/24/25 Dental Screening Dental Screen Date: 04/24/25 HPI 3 month flushing, hairing thinning HPI Details 30-year-old female with a history of hypothyroidism GERD generalized anxiety disorder coming in for follow-up last seen in December 2024 and blood work was done at that time revealing within normal results. Otherwise patient has been doing fine follows up with Gynecology [facility] Medical History Rectal bleeding Well woman exam Annual physical exam Foot pain, right Pain of right middle finger Leg swelling Muscle spasm Vitamin B12 deficiency Vaginal discharge UTI (urinary tract infection) Constipation Vitamin D deficiency History of Graves' disease Renal calculus, right Pancreatitis Intussusception Psoriasis Mild asthma Anxiety Esophageal stricture GERD (gastroesophageal reflux disease) Hypothyroidism Surgical History H/O radioactive iodine thyroid ablation Hx of colonoscopy History of surgery History of nasal surgery History of biopsy History of nasal cauterization History of wisdom tooth extraction History of endoscopy History of tonsillectomy Family History Father Elevated cholesterol Neuropathy Throat cancer Mother Raynauds syndrome Cervical cancer Sister Cervical cancer Paternal Grandmother Heart problem Heart attack Maternal Grandmother Lung cancer Paternal Grandfather Thyroid cancer Social History Household Members: Family Housing: House Are you a primary adult care manager to a significant other at home: No Do you presently have visiting nurse or other home services: No Alcohol intake: current Alcohol intake frequency: holidays/special occasions only Comment: once a month1-3 drinks Patient Tobacco Use Status: Never used Tobacco e-Cigarette/Vaping Use: Never Used Second Hand Smoke Exposure: Yes (Parents are smokers) service: No Current occupational status: employed 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 1. Little interest or pleasure in doing things: not at all 2. Feeling down, depressed, or hopeless: not at all 3. Trouble falling or staying asleep, or sleeping too much: not at all 4. Feeling tired or having little energy: not at all 5. Poor appetite or overeating: not at all 6. Feeling bad about yourself - or that you are a failure or have let yourself or your family down: not at all 7. Trouble concentrating on things, such as reading the newspaper or watching television: not at all 8. Moving or speaking so slowly that other people could have noticed. Or the opposite - being so fidgety or restless that you have been moving around a lot more than usual: not at all 9. Thoughts that you would be better off or of hurting yourself in some way: not at all Total score: 0 Source: Developed by Drs. Bin Nuñez, Mell Cassidy, Sha Roblero and colleagues, with an educational bessie from [employer]. Thrive Questionnaire Date Thrive assessed: 01/06/25 I am a: Patient What is your living situation today?: I have a steady place to live Within the past 12 months, did the food you bought not last and you didn't have the money to get more?: I choose not to answer this question Within the past 12 months, did you worry whether your food would run out before you got money to buy more?: I choose not to answer this question Do you have trouble paying for medicines?: No Do you have trouble getting transportation to medical appointments?: No Do you have trouble paying your heating and electricity bill?: No Do you have trouble taking care of your child, family member or friend?: I choose not to answer this question Do you have trouble with day-to-day activities such as bathing, preparing meals, shopping, managing finances, etc.?: I choose not to answer this question Are you currently unemployed and looking for a job?: I choose not to answer this question Are you interested in more education?: I choose not to answer this question Please select the resources that you would like help with: None Currently or been in a relationship where the following occur: I choose not to answer THRIVE Score: 0 AUDIT C Alcohol Use Questionnaire (AUDIT-C) 1. How often do you have a drink containing alcohol?: Monthly or less 2. How many drinks containing alcohol do you have on a typical day when you are drinking?: 1 or 2 3. How often do you have six or more drinks on one occasion?: Never Total Score: 1 RAPHAEL-7 AMB Questionnaire RAPHAEL-7 Date RAPHAEL - 7 assessed: 04/24/25 Feeling nervous, anxious, or on edge: 0 = Not at all Not being able to stop or control worryin = Not at all Worrying too much about different things: 0 = Not at all Trouble relaxin = Not at all Being so restless that it is hard to sit still: 0 = Not at all Becoming easily annoyed or irritable: 0 = Not at all Feeling afraid as if something awful might happen: 0 = Not at all Total RAPHAEL-7 score (0-4 normal; 5-9 mild; 10-14 moderate; 15-21 severe): 0 Source: Developed by Drs. Bin Nuñez, Mell Cassidy, Sha Roblero and colleagues, with an educational bessie from [employer]. Physical exam (Primary Care) Vital Signs: Last Vital Signs Pulse 74 04/24/25 15:34 Resp 18 04/24/25 15:34 BP 118/62 04/24/25 15:34 Pulse Ox 99 04/24/25 15:34 Oxygen Delivery Method Room Air 04/24/25 15:34 Tobacco/Smoking Status: Tobacco use Status Tobacco use date assessed 04/24/25 04/24/25 15:41 Patient Tobacco Use Status Never used Tobacco 04/24/25 15:41 e-Cigarette/Vaping Use Never Used 04/24/25 15:41 PHQ-9: PHQ-9 Score PHQ-9: Total score 0 04/24/25 15:41 Thrive Assessment: Date of Thrive Assessment Date Thrive assessed 01/06/25 04/24/25 15:41 Currently or been in a relationship where the following occur: I choose not to answer Const General: alert; No acute distress Eyes Conjunctivae: conjunctivae normal Resp Auscultation: clear to auscultation bilaterally Cardio Rate: regular rate Rhythm: regular rhythm GI Inspection: Yes normal to inspection Extrem General: Yes normal to inspection and No edema Coding Level of Care Code Est Pt Level 4 (94092) Diagnoses Acquired hypothyroidism E03.9 Hypothyroidism type: acquired Gastroesophageal reflux disease without esophagitis K21.9 Esophagitis presence: without esophagitis Generalized anxiety disorder F41.1 Frequency of micturition R35.0 Assessment & Plan Assessment & Plan (1) Hypothyroidism: Comment: post ablative Code(s): E03.9 - Hypothyroidism, unspecified Category: Medical Qualifiers: Hypothyroidism type: acquired Qualified Code(s): E03.9 - Hypothyroidism, unspecified Plan: Continue to monitor thyroid patient is on levothyroxine 75 mcg once a day (2) GERD (gastroesophageal reflux disease): Comment: EGD June 2020 Code(s): K21.9 - Gastro-esophageal reflux disease without esophagitis Category: Medical Qualifiers: Esophagitis presence: without esophagitis Qualified Code(s): K21.9 - Gastro-esophageal reflux disease without esophagitis Plan: Avoid the foods that causes that usually spicy foods, tomato products, juices, coffee, soda and foods that your sensitive to. After eating do not lie down, allow 3-4 hours before in lie down. And keep the head of bed above 30 degrees to avoid the acid from going up. On pantoprazole (3) Generalized anxiety disorder: Comment: Patient has seen [facility] and declined referral this time; see note 11/22/21-mo'b Code(s): F41.1 - Generalized anxiety disorder Category: Medical Plan: Patient on paroxetine (4) Frequency of micturition: Code(s): R35.0 - Frequency of micturition Category: Medical Plan: Urinalysis done within normal limits and urine negative Orders: Orders AMB Urinalysis Automated Today R31.9 - Hematuria, unspecified AMB HCG Urine Test Today R35.0 - Frequency of micturition Medications: Discontinued nitrofurantoin monohyd/m-cryst 100 mg (Macrobid) must administer with a meal/food Discontinued Reason: Duplicate 100 mg PO Q12H 7 days 14 caps 0RF
--- OUTSIDE RECORDS SUMMARY | 2025-04-24 18:00 | XMS_ITS | Clinical Summary ---
Author Organization [facility] Address [address] [place] [address] Care Team Providers Care Nuclear Reactor Engineer Name Role Phone Aniket Gonzalez MD Primary Care Provider [phone] Medical History Medical History Date Comments Anxiety [...] age to complete this topic Care Teams Nuclear Reactor Engineer Relationship Specialty Start Date End Date Aniket Gonzalez MD [address] [place] [address] Dr [address] [facility] [place] [address] PCP - General Internal Medicine 01/16/20
== END 2025-04-24 16:32 | disposition home or self-care (01) ==
LOC: HO.HMCH 15:31
PROVIDERS: PCP Internal Medicine; Visit Provider Internal Medicine
DX: E03.9 Hypothyroidism, unspecified (principal); K21.9 Gastro-esophageal reflux disease without esophagitis; F41.1 Generalized anxiety disorder; R35.0 Frequency of micturition; R31.9 Hematuria, unspecified

== ENCOUNTER → 2025-04-24 15:30 | Outpatient (BNVA) | payer OTHER, SELFPAY | PROVIDERS: PCP Internal Medicine; Visit Provider Internal Medicine | DX: F41.1 Generalized anxiety disorder (principal); R23.2 Flushing; E03.9 Hypothyroidism, unspecified; K21.9 Gastro-esophageal reflux disease without esophagitis; R35.0 Frequency of micturition; R31.9 Hematuria, unspecified | CPT/HCPCS: 81003; 81025; 99212 ==

== ENCOUNTER 2025-07-07 17:33 | Outpatient (AMB) | payer OTHER, SELFPAY ==
[2025-07-07 17:38] VITALS: BP 120/60; PULSE 73; TEMP 36.3; O2SAT 99; BMI 25.5
--- NOTE | 2025-07-07 17:38 | A.OFFPC_ITS ---
Vital Signs 07/07/25 17:38 Height 5 ft 1 in Weight 135 lb 2 oz BMI 25.5 BP 120/60 Blood Pressure Location Lt brachial Position Sitting Pulse 73 Pulse Source Pulse Oximeter Temp 97.3 F Temp Source Temporal Artery Scan Pulse Oximetry (%) 99 Oxygen Delivery Method Room Air Intake Visit Reasons: PHYSICAL Intake Note: Patient is here today for a physical. Teacher Cclc Required: No Director Of Strategic Programs: Not Required per policy Accompanied by: Self / Same As Patient Allergies hydromorphone (Dilaudid) Allergy (Intermediate, Verified 07/07/25 17:38) sob itching, vomiting metronidazole Allergy (Intermediate, Verified 07/07/25 17:38) Mood Swings codeine (CODEINE) Adverse Reaction (Intermediate, Verified 07/07/25 17:38) N/V Medication List - Last Reconciled 07/07/25 by Aniket Gonzalez MD calcipotriene 0.005% appl topical cetirizine mg PO clindamycin phosphate 1% 1 appl topical BID desogestrel-ethinyl estradiol 0.15-0.03 mg (Apri) 1 tab PO DAILY 84 days levothyroxine 75 mcg PO DAILY 90 days multivitamin (Daily Multi-Vitamin tablet) 1 tab PO DAILY pantoprazole 20 mg PO QAM paroxetine HCl 10 mg PO BEDTIME triamcinolone acetonide 0.1% 1 appl topical BID-TID Tobacco use date assessed: 07/07/25 Dental Screening Dental Screen Date: 04/24/25 [facility] Medical History Rectal bleeding Well woman exam Annual physical exam Foot pain, right Pain of right middle finger Leg swelling Muscle spasm Vitamin B12 deficiency Vaginal discharge UTI (urinary tract infection) Constipation Vitamin D deficiency History of Graves' disease Renal calculus, right Pancreatitis Intussusception Psoriasis Mild asthma Anxiety Esophageal stricture GERD (gastroesophageal reflux disease) Hypothyroidism Surgical History H/O radioactive iodine thyroid ablation Hx of colonoscopy History of surgery History of nasal surgery History of biopsy History of nasal cauterization History of wisdom tooth extraction History of endoscopy History of tonsillectomy Family History Father Elevated cholesterol Neuropathy Throat cancer Mother Raynauds syndrome Cervical cancer Sister Cervical cancer Paternal Grandmother Heart problem Heart attack Maternal Grandmother Lung cancer Paternal Grandfather Thyroid cancer Social History Household Members: Family Housing: House Are you a primary foster care social worker to a significant other at home: No Do you presently have visiting nurse or other home services: No Alcohol intake: current Alcohol intake frequency: holidays/special occasions only Comment: once a month1-3 drinks Patient Tobacco Use Status: Never used Tobacco e-Cigarette/Vaping Use: Never Used Second Hand Smoke Exposure: Yes (Parents are smokers) service: No Current occupational status: employed 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 Current occupational exposures/hazards: No Sexual orientation: Straight/Heterosexual Gender identity: Female Cognitive needs: No Hearing needs: No Vision needs: Yes (Glasses) Female Reproductive History Menstrual Age of Menarche: 13 Questionnaire Thrive Questionnaire Date Thrive assessed: 04/24/25 I am a: Patient What is your living situation today?: I have a steady place to live Within the past 12 months, did the food you bought not last and you didn't have the money to get more?: I choose not to answer this question Within the past 12 months, did you worry whether your food would run out before you got money to buy more?: I choose not to answer this question Do you have trouble paying for medicines?: No Do you have trouble getting transportation to medical appointments?: No Do you have trouble paying your heating and electricity bill?: No Do you have trouble taking care of your child, family member or friend?: I choose not to answer this question Do you have trouble with day-to-day activities such as bathing, preparing meals, shopping, managing finances, etc.?: I choose not to answer this question Are you currently unemployed and looking for a job?: I choose not to answer this question Are you interested in more education?: I choose not to answer this question Please select the resources that you would like help with: None Currently or been in a relationship where the following occur: I choose not to answer THRIVE Score: 0 RAPHAEL-7 AMB Questionnaire RAPHAEL-7 Date RAPHAEL - 7 assessed: 04/24/25 Source: Developed by Drs. Bin Nuñez, Mell Cassidy, Sha Roblero and colleagues, with an educational bessie from [employer]. Review of Systems Const Denies poor appetite and Denies weakness Eyes Denies no additional complaints ENT Reports Normal hearing present, Denies dizziness, Denies nasal congestion, Denies tinnitus and Denies sore throat Card Denies chest pain, Denies syncope, Denies rapid heart rate and Denies dyspnea Resp Denies cough and Denies dyspnea GI Denies change in stool character, Reports constipation, Denies diarrhea, Denies nausea and Denies vomiting Denies urinary frequency, Denies difficulty voiding and Denies dysuria Neuro Reports Normal hearing present, Denies confusion, Denies dizziness, Denies syncope and Denies weakness Psych Denies confusion Physical exam (Primary Care) Vital Signs: Last Vital Signs Temp 97.3 F 07/07/25 17:38 Pulse 73 07/07/25 17:38 BP 120/60 07/07/25 17:38 Pulse Ox 99 07/07/25 17:38 Oxygen Delivery Method Room Air 07/07/25 17:38 BMI result Body Mass Index 25.5 Tobacco/Smoking Status: Tobacco use Status Tobacco use date assessed 07/07/25 07/07/25 17:42 Patient Tobacco Use Status Never used Tobacco 07/07/25 17:42 e-Cigarette/Vaping Use Never Used 07/07/25 17:42 Thrive Assessment: Date of Thrive Assessment Date Thrive assessed 04/24/25 07/07/25 17:42 Currently or been in a relationship where the following occur: I choose not to answer Const General: No confusion Orientation/consciousness: No confusion HENMT Head: Yes normocephalic Ears: external ears normal and TM's normal bilaterally Face and sinus: Yes normal facial exam Mouth: moist mucous membranes Throat: Yes tonsils normal Eyes Conjunctivae: conjunctivae normal Pupils: Equal, round and reactive pupils present and Pupil accommodation reflex normal Direct Ophthalmoscopy: normal light reflex Neck Neck: No lymphadenopathy Thyroid: Thyroid normal Chest Chest palpation & inspection: normal inspection of the chest Resp Effort & Inspection: normal respiratory effort and no audible wheezes Auscultation: clear to auscultation bilaterally, no crackles, no wheezes and lung sounds not diminished Cardio Rate: regular rate Rhythm: regular rhythm Peripheral pulses: radial pulses present and dorsalis pedis present GI Palpation (GI): no masses Auscultation: normal bowel sounds and normoactive bowel sounds Rectal Exam - Female: deferred Skin General skin exam: no rashes or lesions noted Rashes: no rashes Neuro General: No confusion Cranial nerves: Yes Equal, round and reactive pupils present and Yes Normal hearing present Cognition (Neuro): normal cognition Gait exam (Neuro): Normal gait present Motor exam (neuro): 5/5 motor strength present throughout Deep tendon reflexes (DTR's): Right brachioradialis reflex intensity grade: 2+, Left brachioradialis reflex intensity grade: 2+, Right patellar reflex intensity grade: 2+ and Left patellar reflex intensity grade: 2+ Extrem General: No edema Coding Level of Care Code Est Pt Prev Care 18-39y(44417) Diagnoses Annual physical exam Z00.00 Gastroesophageal reflux disease without esophagitis K21.9 Esophagitis presence: without esophagitis Acquired hypothyroidism E03.9 Hypothyroidism type: acquired Generalized anxiety disorder F41.1 Vision changes H53.9 Constipation K59.00 LLQ abdominal pain R10.32 Assessment & Plan Assessment & Plan (1) Annual physical exam: Code(s): Z00.00 - Encounter for general adult medical examination without abnormal findings Category: Medical Plan: Patient is advised to eat healthy, keep well hydrated, keep active and have adequate sleep. (2) GERD (gastroesophageal reflux disease): Comment: EGD June 2020 Code(s): K21.9 - Gastro-esophageal reflux disease without esophagitis Category: Medical Qualifiers: Esophagitis presence: without esophagitis Qualified Code(s): K21.9 - Gastro-esophageal reflux disease without esophagitis Plan: Avoid the foods that causes that usually spicy foods, tomato products, juices, coffee, soda and foods that your sensitive to. After eating do not lie down, allow 3-4 hours before in lie down. And keep the head of bed above 30 degrees to avoid the acid from going up. (3) Hypothyroidism: Comment: post ablative Code(s): E03.9 - Hypothyroidism, unspecified Category: Medical Qualifiers: Hypothyroidism type: acquired Qualified Code(s): E03.9 - Hypothyroidism, unspecified Plan: Continue with thyroid medication December 2024 last test (4) Generalized anxiety disorder: Comment: Patient has seen [facility] and declined referral this time; see note 11/22/21-mo'b Code(s): F41.1 - Generalized anxiety disorder Category: Medical Plan: Continue with present medication (5) Vision changes: Code(s): H53.9 - Unspecified visual disturbance Category: Medical Plan: Referral to Ophthalmology done (6) Constipation: Code(s): K59.00 - Constipation, unspecified Category: Medical Plan: Three rules for constipation 1. Diet need to have a high fiber diet less of meat 2. Increase oral fluids 3. Exercise (7) LLQ abdominal pain: Code(s): R10.32 - Left lower quadrant pain Category: Medical Plan History of Present Illness The patient is a 30-year-old female presenting for a physical exam and wellness visit. The patient has a history of hypothyroidism, managed with thyroid medication, with the last thyroid function test conducted in December. She also reports generalized anxiety disorder, managed with paroxetine. Recently, the patient experienced constipation, with a notable episode of not being able to have a bowel movement for three days, and has been advised to increase fiber intake and hydration. 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 - Substance Use: Consumes alcohol occasionally, denies tobacco and recreational drug use - Nutrition: Consumes sandwiches frequently, advised to increase fiber intake Review of Systems - General: Reports 14-pound weight gain, denies fever - Cardiovascular: Denies chest pain - Respiratory: Reports dyspnea when hot, denies persistent cough - Gastrointestinal: Reports constipation, denies nausea or vomiting - Musculoskeletal: Reports upper back pain, denies joint pain - Neurological: Denies dizziness or syncope Physical Exam General: Cooperative, healthy appearing, comfortable, no acute distress and well developed Orientation: Patient oriented x3 Limitations: No limitations Head: Normal to inspection Ears: Hearing grossly normal bilaterally Nose: Normal external nose present Face and sinus: Normal facial exam Eyes: Appearance normal, both eyes and all related structures; patient reports needing an updated vision test Neck: Normal visual inspection and Yes full ROM Respiratory: Normal respiratory effort and able to speak in complete sentences. Clear to auscultation bilaterally Cardiovascular: Regular rate and rhythm. Normal S1 and S2 GI: Extended abdomen with pain that sometimes stops the patient in her tracks; soft to palpation and nontender except for pressure noted in the upper mid- abdomen Skin: No rashes or lesions noted Neuro: Patient oriented x3 Extremities: Normal to inspection; reports upper back pain, feels the need to crack daily, likely muscular Results - Labs: Normal blood count, electrolytes, liver function, cholesterol, and thyroid function as of December - Urine test: Negative Plan Patient was informed and verbally consented to the use of an ambient scribe for clinic note documentation during this visit. 1. Hypothyroidism The patient will continue with her current thyroid medication regimen, with a follow-up thyroid function test recommended to monitor levels. 2. Generalized Anxiety Disorder The patient is advised to continue with paroxetine for management of anxiety symptoms. 3. Constipation The patient is advised to increase fiber intake and hydration, with [id number] options like psyllium recommended for symptom relief. 4. Upper Back Pain The patient is advised to monitor posture and consider physical therapy if symptoms persist, given the likely muscular nature of the pain due to prolonged standing at work. Discussion Notes During the visit, we discussed the management of hypothyroidism with continued medication and monitoring of thyroid function tests. We also reviewed the management of generalized anxiety disorder with paroxetine. For constipation, I recommended increasing fiber intake and hydration, with the option of [id number] psyllium. We addressed the patient's upper back pain, likely muscular, advising on posture and potential physical therapy if needed. Patient Instructions - Continue thyroid medication as prescribed. - Take paroxetine as directed for anxiety management. - Increase fiber intake and stay hydrated to manage constipation. - Monitor posture and consider physical therapy for back pain if it persists. - Schedule follow-up for thyroid function test. Orders: Orders Complete Blood Count Auto Diff Today D50.9 - Iron deficiency anemia, unspecified Comprehensive Met. Panel Today D50.9 - Iron deficiency anemia, unspecified Free T4 (Free Thyroxine) Today D50.9 - Iron deficiency anemia, unspecified Lipid Panel Today D50.9 - Iron deficiency anemia, unspecified, E78.00 - Pure hypercholesterolemia, unspecified IRON PROFILE Today D50.9 - Iron deficiency anemia, unspecified Reticulocyte Count Today D50.9 - Iron deficiency anemia, unspecified Vitamin B12 and Folate Today D50.9 - Iron deficiency anemia, unspecified Ferritin Today D50.9 - Iron deficiency anemia, unspecified UA CC w/rflx Micro + Cult Today R10.32 - Left lower quadrant pain, R30.0 - Dysuria Vitamin D 25-OH Total Today D50.9 - Iron deficiency anemia, unspecified Thyroid Stimulating Hormone Today D50.9 - Iron deficiency anemia, unspecified US pelvic complete Today R10.32 - Left lower quadrant pain Referrals Ophthalmology Referral H53.9 - Unspecified visual disturbance Medications: New psyllium husk (Fiber (psyllium husk)) 1.04 grams (2 x 0.52 gram) PO BEDTIME PRN 60 caps 12RF constipation K59.00 - Constipation, unspecified
--- OUTSIDE RECORDS SUMMARY | 2025-07-07 18:18 | XMS_ITS | Encounter Summary ---
Author Organization [facility] Address [address] [place] [address] Phone Care Team Providers Care Motor Overhauler Name Role Phone Susan Justice MD Primary Care Provider Unava ilable Encounter Details Date Type Department Care Team (Late st Contact Info) Description 01/20/2014 Documentation EM Family Medicine [address] [place] [address] Family Medicine, Physician [address] [place], [place] [address] Social History Tobacco Use Types Packs/Day Years [...] on filedocumented in this encounter Care Teams Motor Overhauler Relationship Specialty Start Date End Date Susan Justice MD PCP - General 06/23/17 documented as of this encounter
--- OUTSIDE RECORDS SUMMARY | 2025-07-07 18:18 | XMS_ITS | Clinical Summary ---
Author Organization [facility] Address [address] [place] [address] Care Team Providers Care Fire Support Man Name Role Phone Unavailable Primary Care Provider [...] 70 02/12/2017 1:57 PM EDT Temperature 36.5 C (97.7 F) 02/12/2017 1:57 PM EDT Respiratory Rate 20 02/12/2017 1:57 PM EDT [...] (P ap Smear) 2016 Influenza Vaccine (#1) 2025 Pneumococcal Vaccine Aged Out No long er eligible based on patient's age to complete this topic RSV Ped < 20 months Aged Out No longe r eligible based on [place]'s [place] [address] SherylDaksha Personal/Family Self 1995 [address] [facility] [place] [address]
--- OUTSIDE RECORDS SUMMARY | 2025-07-07 18:18 | XMS_ITS | Clinical Summary ---
Author Organization [facility] Address [address] [address] Phone Care Team Providers Care Forest Worker Name Role Phone Aniket Gonzalez MD Primary Care Provider [phone] Allergies Active Allergy Reactions Criticality Noted Date Comments Codeine Nausea and/or Vomiting 08/03/2021 Hydromorphone Anaphylaxis High 08/03/2021 Metronidazole 08/03/2021 Medications APRI 0.15-0.03 mg per tablet Take 1 tablet by mouth daily. 06/01/2021 Active levothyroxine (SYNTHROID, LEVOTHROID) 50 MCG tablet TAKE 1 TABLET BY MOUTH EVERY DAY FOR 90 DAYS 07/09/2021 Active ondansetron (ZOFRAN) 4 MG tablet TAKE 1 TABLET BY MOUTH EVERY 8 HOURS NEEDED FOR NAUSEA (*INS COVERS 1 TAB/DAY*) 07/12/2021 Active pantoprazole (PROTONIX) 40 MG tablet Take 40 mg by mouth daily. 07/12/2021 Active PARoxetine (PAXIL) 10 MG tablet Take 10 mg by mouth every morning. 07/13/2021 Active Active Problems No known active problems Social History Tobacco Use Types Packs/Day Years Used Date Smoking Tobacco: Never Assessed Education Answer Date Recorded Are you interested in more education? Not on ailyn e 03/11/2023 Are you concerned about learning? Not on file 03/11/2023 No 03/11/2023 No 03/11/2023 Digital Access Answer Date Recorded No 04/09/2023 No 04/09/2023 Reliable internet access at home? Not on file 04/09/2023 Device with a working camera? Not on file Comments Unknown Sex and Gender Information Value Date Recorded Sex Assigned at Not on file Legal Sex Female 3:14 PM EDT Gender Identity Not on file Sexual Orientation Not on file Last Filed Vital Signs Vital Sign Reading Time Taken Comments Blood Pressure 177/83 08/03/2021 3:42 PM EDT Pulse 71 08/03/2021 3:42 PM EDT Temperature 36.8 C (98.2 F) 08/03/2021 3:42 PM EDT Respiratory Rate 16 08/03/2021 3:42 PM EDT Oxygen Saturation 100% 08/03/2021 3:42 PM EDT Inhaled Oxygen Concentration - - Weight - - Height - - Body Mass Index - - Plan of Treatment Health Maintenance Due Date Last Done Comments TSH LEVEL 1995 DEPRESSION SCREENING 2007 SMOKING Hx and SMOKELESS TOBACCO SCREENING 2008 HEPATITIS C SCREENING 2013 HIV ONE-TIME SCREENING (18-65 YEARS) 2013 PAP SMEAR 2016 COVID-19 VACCINE ( season) 2024 02/04/2021, 12/31/2020 Adult Td,Tdap Booster 09/28/2026 09/28/2016, 006 HIB VACCINES Completed 06/13/1996, 10/14, 1995, Additional history exists HEPATITIS A VACCINES Aged Out 11/26/2015, 09/03/20 14 No longer eligible based on patient's age to complete this topic MENINGOCOCCAL VACCINES (ACWY) Aged Out 11/26/2015, 03/12/2008 No longer eligibl e based on patient's age to complete this topic MENINGOCOCCAL VACCINES (B) Aged Out N o longer eligible based on patient's age to complete this topic PNEUMOCOCCAL VACCINES (0-49 years) Aged Out No longer eligible based on patient's age to complete this topic Medical Devices Not on file Insurance [facility] [place] [address] [place] [address] [employer]CO [employer] [facility] Care Teams Forest Worker Relationship Specialty Start Date End Date Aniket Gonzalez MD [address] [place] [phone] PCP - General Internal Medicine 08/03/21 Additional Source Comments The information contained in this document represents components of the legal health record. It is not the complete legal health record.[facility]
--- OUTSIDE RECORDS SUMMARY | 2025-07-07 18:18 | XMS_ITS | Patient Health Record ---
Author Organization [facility] Address [address] [place] [address] Care Team Providers Care Horse Buyer Name Role Phone Charline Bernardo Primary Care Provider Tiago Kiser Jr Unavailable [phone] Allergies Allergen (clinical drug ingredient) Drug/Non Drug Allergy documented on EMR Reaction Allergy Type Onset Date Status codeine Codeine Sulfate Unknown Drug Allergy A ctive Reason For Referral No Information Medications Medication SIG (Take, Route, Frequency, Duration) Notes Start Date End Date Status Vitamin D 1000 UNIT 1 tablet Orally Once a day for 30 day(s) Active Levothyroxine Sodium 50 MCG TK 1 T PO QD IN THE MORNING OES Oral for 30 Active Social History Tobacco Use: Social History Observation Description Date Details (start date - stop date) Never Smoker NA - NA Tobacco Use/Smoking Question Answer Notes Patient is a nonsmoker Alcohol Screen Question Answer Notes Did you have a drink contain ing alcohol in the past year? Yes Points 1 Interpretation Negative How often did you have 6 or more drinks on one occasion in the past year? Never (0 point) How many drinks did you have on a typical day when you were drinking in the past year? 1 or 2 drinks (0 point) How often did you have a dri nk containing alcohol in the past year? Monthly or less (1 point) Problems Problem Type SNOMED Code ICD Code Onset Dates Problem Status W/U Status Risk Notes Problem 59310491 Epigastric pain (R10.13) Active confirmed Problem 841721295 Right upper quadrant pain (R10.11) Active confirmed Problem 58197062 Dysphagia, unspecified type (R13.10) Active confirmed Plan Of Treatment Future Test Test Name Order Date UPPER GI ENDOSCOPY 01/19/2018 Insurance Providers Payer Name Payer Address Payer Phone Subscriber Number Group Number Insured Name Patient Relationship to Insured Coverage Start Date Coverage End Date [facility] [address] [place], [place] [id number] [phone] [id number] GAGE [employer] Self - patient is the insured [place] [address] [place] [phone] [id number] GAGE [employer] Self - patient is the insured Medical (General) History Medical History History ICD Code panic attacks hyperthyroidism mild asthma hives Surgical History Surgery Date(Month/Year) skin biopsy on back 2018 tonsils childhood finger index childhood
--- OUTSIDE RECORDS SUMMARY | 2025-07-07 18:18 | XMS_ITS | Clinical Summary ---
Author Organization [facility] Address [address] [place] [address] Phone Care Team Providers Care Tar Chaser Name Role Phone Susan Justice MD Primary [...] 86 11/26/2015 12:00 AM EST Temperature 37 C (98.6 F) 11/20/2013 12:00 AM EST Respiratory Rate - [...] 08/30/2016 08/30/2006, 02/24/2000, 09/17/1996, Additional history exists COVID-19 Vaccine () 07/14/2024 Influenza Vaccines (#1) 2025 11/26/19 16, 09/03/2014, 09/05/2013 Hepatitis B Vaccines Completed 01/15/1996, 1995, 1995 HIB Vaccines Completed 06/13/1996, 10/14, 1995, Additional history exists MMR Vaccines Completed 01/29/1999, 06/13/1996 IPV Vaccines Completed 02/24/2000, 10/14, 1995, Additional history exists Varicella Vaccines Completed 08/19/2009, 09/17/1996 HPV Vaccines Completed 07/11/2012, 0305/2012, 10/12/2011 Hepatitis A Vaccines Aged Out 11/26/2015, [...] age to complete this topic Care Teams Tar Chaser Relationship Specialty Start Date End Date Susan Justice MD PCP - General 06/23/17
--- OUTSIDE RECORDS SUMMARY | 2025-07-07 18:18 | XMS_ITS | Encounter Summary ---
Author Organization [facility] Address [address] [place] [address] Phone Care Team Providers Care Road Service Locksmith Name Role Phone Susan Justice MD Primary Care Provider Unava ilable Encounter Details Date Type Department Care Team (Late st Contact Info) Description 01/18/2010 Documentation [facility] [address] [place] [address] Family Medicine, Physician [address] [place], [place] [id number] Social History Tobacco Use Types Packs/Day Years [...] on filedocumented in this encounter Care Teams Road Service Locksmith Relationship Specialty Start Date End Date Susan Justice MD PCP - General 06/23/17 documented as of this encounter
--- OUTSIDE RECORDS SUMMARY | 2025-07-07 18:18 | XMS_ITS | Encounter Summary ---
Author Organization [facility] Address [address] [place] [address] Phone Care Team Providers Care Manager Bar Name Role Phone Susan Justice MD Primary Care Provider Unava ilable Encounter Details Date Type Department Care Team (Late st Contact Info) Description 01/18/2010 Documentation [facility] [address] [place] [address] Family Medicine, Physician [address] [place], [place] [address] Social History Tobacco Use Types Packs/Day Years [...] on filedocumented in this encounter Care Teams Manager Bar Relationship Specialty Start Date End Date Susan Justice MD PCP - General 06/23/17 documented as of this encounter
--- OUTSIDE RECORDS SUMMARY | 2025-07-07 18:18 | XMS_ITS | Clinical Summary ---
Author Organization [facility] Address [address] [place] [address] Care Team Providers Care Arch Cushion Skiving Machine Operator Name Role Phone Aniket Gonzalez MD Primary Care Provider [phone] Medical History Medical History Date Comments Anxiety [...] 5 Years) and At-Risk Patients (6 to 49 Years) (1 of 2 - PCV) 2014 Cervical Cancer Screening: P ap Smear 2016 HIV Screening 10/15/2022 Hepatitis C Screening 10/15/2022 Social Influencers of Health Screening 10/15/2022 COVID-19 Vaccine (1 - 2023-2 5 season) 2024 Depression Screening 11/13/2024 Influenza Vaccine (#1) 2025 9, 07/27/2018, 11/26/2015 DTaP,Tdap,and Td Vaccines (3 [...] age to complete this topic Care Teams Arch Cushion Skiving Machine Operator Relationship Specialty Start Date End Date Aniket Gonzalez MD [address] [place] [address] [address] [facility] [place] [address] PCP - General Internal Medicine 01/16/20
--- OUTSIDE RECORDS SUMMARY | 2025-07-07 18:18 | XMS_ITS | Encounter Summary ---
Author Organization [facility] Address [address] [place] [address] Phone Care Team Providers Care Block And Case Maker Name Role Phone Susan Justice MD Primary Care Provider Unava ilable Encounter Details Date Type Department Care Team (Late st Contact Info) Description 06/29/2017 Conversion Encounter [facility] - [address] [id number] Social History Tobacco Use Types Packs/Day Years [...] on filedocumented in this encounter Care Teams Block And Case Maker Relationship Specialty Start Date End Date Susan Justice MD PCP - General 06/23/17 documented as of this encounter
== END 2025-07-07 18:26 | disposition home or self-care (01) ==
LOC: HO.HMCH 17:33
PROVIDERS: PCP Internal Medicine; Visit Provider Internal Medicine
DX: Z00.00 Encounter for general adult medical examination without abnormal findings (principal); K21.9 Gastro-esophageal reflux disease without esophagitis; E03.9 Hypothyroidism, unspecified; F41.1 Generalized anxiety disorder; H53.9 Unspecified visual disturbance; K59.00 Constipation, unspecified; R10.32 Left lower quadrant pain

== ENCOUNTER → 2025-07-07 17:33 | Outpatient (BNVA) | payer OTHER, SELFPAY | PROVIDERS: PCP Internal Medicine; Visit Provider Internal Medicine | DX: Z00.00 Encounter for general adult medical examination without abnormal findings (principal); K21.9 Gastro-esophageal reflux disease without esophagitis; E03.9 Hypothyroidism, unspecified; F41.1 Generalized anxiety disorder; H53.9 Unspecified visual disturbance; K59.00 Constipation, unspecified; R10.32 Left lower quadrant pain; D50.9 Iron deficiency anemia, unspecified | CPT/HCPCS: 99395 ==

== ENCOUNTER 2025-07-11 13:28 | Outpatient (REF) | payer OTHER, SELFPAY ==
--- OUTSIDE RECORDS SUMMARY | 2025-07-11 13:40 | XMS_ITS | Clinical Summary ---
Author Organization [facility] Address [address] [place] [address] Care Team Providers Care Pediatric Clinical Nurse Specialist Name Role Phone Aniket Gonzalez MD Primary Care Provider [phone] Medical History Medical History Date Comments Anxiety [...] age to complete this topic Care Teams Pediatric Clinical Nurse Specialist Relationship Specialty Start Date End Date Aniket Gonzalez MD [address] [place] [address] [address] [facility] [place] [address] PCP - General Internal Medicine 01/16/20
--- OUTSIDE RECORDS SUMMARY | 2025-07-11 13:40 | XMS_ITS | Encounter Summary ---
Author Organization [facility] Address [address] [place] [address] Phone Care Team Providers Care Rides Attendant Name Role Phone Susan Justice MD Primary Care Provider Unava ilable Encounter Details Date Type Department Care Team (Late st Contact Info) Description 01/18/2010 Documentation [facility] [address] [place] [address] Family Medicine, Physician [address] [place], [place] [address] Social History Tobacco Use Types Packs/Day Years [...] on filedocumented in this encounter Care Teams Rides Attendant Relationship Specialty Start Date End Date Susan Justice MD PCP - General 06/23/17 documented as of this encounter
--- OUTSIDE RECORDS SUMMARY | 2025-07-11 13:40 | XMS_ITS | Clinical Summary ---
Author Organization [facility] Address [address] [place] [address] Phone Care Team Providers Care Radiator Repairer Name Role Phone Susan Justice MD Primary [...] age to complete this topic Care Teams Radiator Repairer Relationship Specialty Start Date End Date Susan Justice MD PCP - General 06/23/17
--- OUTSIDE RECORDS SUMMARY | 2025-07-11 13:40 | XMS_ITS | Patient Health Record ---
Author Organization [facility] Address [address] [place] [address] Care Team Providers Care Market Master Name Role Phone Charline Bernardo Primary Care Provider Tiago Kiser Jr Unavailable Allergies Allergen (clinical drug ingredient) Drug/Non Drug [...] Problem Status W/U Status Risk Notes Problem [id number] Epigastric pain (R10.13) Active confirmed Problem [id number] Right upper quadrant pain (R10.11) Active confirmed Problem [id number] Dysphagia, unspecified type (R13.10) Active confirmed Plan Of Treatment Future Test Test Name Order Date UPPER GI ENDOSCOPY 01/19/2018 Insurance Providers Payer Name Payer Address Payer Phone Subscriber Number Group Number Insured Name Patient Relationship to Insured Coverage Start Date Coverage End Date [facility] [address] [place], [place] [id number] [phone] [id number] GAGE MORALES Self - patient is the insured [place] [address] [place] [phone] [id number] GAGE MORALES Self - patient is the insured Medical (General) History Medical History History ICD Code panic attacks hyperthyroidism mild asthma hives Surgical History Surgery Date(Month/Year) skin biopsy on back 2018 tonsils childhood finger index childhood
--- OUTSIDE RECORDS SUMMARY | 2025-07-11 13:40 | XMS_ITS | Clinical Summary ---
Author Organization [facility] Address [address] [address] Phone Care Team Providers Care Vocal Teacher Name Role Phone Aniket Gonzalez MD Primary Care Provider [phone] Allergies Active Allergy Reactions Criticality Noted Date [...] topic Medical Devices Not on file Insurance [employer] [place] [place] [address] [place] [id number] [employer] Care Teams Vocal Teacher Relationship Specialty Start Date End Date Aniket Gonzalez MD [address] [place] [phone] PCP - General Internal Medicine 08/03/21 Additional Source Comments The information contained in this document represents components of the legal health record. It is not the complete legal health record.[facility]
--- OUTSIDE RECORDS SUMMARY | 2025-07-11 13:40 | XMS_ITS | Clinical Summary ---
Author Organization [facility] Address [address] [place] [address] Care Team Providers Care Administration Clerk Name Role Phone Unavailable Primary Care Provider [...] on patient's age [place] [address] SherylDaksha Personal/Family Self 1995 [address] [place] [address]
--- OUTSIDE RECORDS SUMMARY | 2025-07-11 13:40 | XMS_ITS | Encounter Summary ---
Author Organization [facility] Address [address] [place] [address] Phone Care Team Providers Care Staff Combat Information Center Officer Name Role Phone Susan Justice MD Primary Care Provider Unava ilable Encounter Details Date Type Department Care Team (Late st Contact Info) Description 06/29/2017 Conversion Encounter [facility] - [address] [phone] Social History Tobacco Use Types Packs/Day Years [...] on filedocumented in this encounter Care Teams Staff Combat Information Center Officer Relationship Specialty Start Date End Date Susan Justice MD PCP - General 06/23/17 documented as of this encounter
--- OUTSIDE RECORDS SUMMARY | 2025-07-11 13:40 | XMS_ITS | Encounter Summary ---
Author Organization [facility] Address [address] [place] [address] Phone Care Team Providers Care Asphalt Paving Foreman Name Role Phone Susan Justice MD Primary Care Provider Unava ilable Encounter Details Date Type Department Care Team (Late st Contact Info) Description 01/18/2010 Documentation [facility] [address] [place] [address] Family Medicine, Physician [address] [place], [place] [address] Social History Tobacco Use Types Packs/Day Years [...] on filedocumented in this encounter Care Teams Asphalt Paving Foreman Relationship Specialty Start Date End Date Susan Justice MD PCP - General 06/23/17 documented as of this encounter
--- OUTSIDE RECORDS SUMMARY | 2025-07-11 13:40 | XMS_ITS | Encounter Summary ---
Author Organization [facility] Address [address] [place] [address] Phone Care Team Providers Care Manager Training And Development Name Role Phone Susan Justice MD Primary Care Provider Unava ilable Encounter Details Date Type Department Care Team (Late st Contact Info) Description 01/20/2014 Documentation [facility] [address] [place] [address] Family Medicine, Physician [address] [place], [place] [address] Social History Tobacco Use Types Packs/Day Years [...] filedocumented in this encounter Care Teams Manager Training And Development Relationship Specialty Start Date End Date Susan Justice MD PCP - General 06/23/17 documented as of this encounter
[2025-07-11 14:02] LABS: MANUAL DIFF FLAG NO
[2025-07-11 14:21] LABS: Hematocrit 41.7 % (37.0-47.0); Hemoglobin 14.4 g/dl (12.0-16.0); Imm Gran Abs Auto 0.03 X10*3/uL (0.00-0.03); Imm Gran Pct Auto 0.3 % (0.0-0.4); Lymphocytes Absolute Auto 2.1 X10*3/uL (1.2-4.9); Mean Corpuscular HGB Conc 34.5 g/dl (31.0-35.0); Mean Corpuscular Hemoglobin 29.9 pg (27.0-33.0); Mean Corpuscular Volume 86.5 fL (80.0-98.0); NRBC Abs Auto 0.000 X10*3/uL (0.0-0.012); NRBC Pct Auto 0.0 /100WBC (0.0-0.2); Platelet Count 322 X10*3/uL (160-400); Red Blood Count 4.82 X10*6/uL (4.20-5.50); Reticulocytes Absolute 0.077 X10*6/uL (0.026-0.095); White Blood Count 11.1 X10*3/uL (4.8-10.8)
[2025-07-11 15:04] LABS: Alanine Aminotransferase 17 U/L (0-31); Albumin Level 4.9 g/dL (3.5-5.0); Alkaline Phosphatase 68 U/L (39-117); Anion Gap 15 (12-20); Aspartate Amino Transferase 24 U/L (5-31); Blood Urea Nitrogen 13 mg/dL (9-16); Calcium 9.7 mg/dL (8.4-10.2); Carbon Dioxide 24 mmol/L (22-29); Chloride 106 mmol/L (96-108); Cholesterol 233 mg/dL (<200); Estimated Glomerular Filt Rate > 60; HDL Cholesterol 67 mg/dL (>40); Iron 193 mcg/dL (30-160); Percent Iron Saturation 50 % (15-50); Potassium 4.7 mmol/L (3.3-5.1); Sodium 140 mmol/L (135-145); Total Iron Binding Capacity 389 mcg/dL (228-428); Total Protein 7.8 g/dL (6.5-8.0); Triglycerides 122 mg/dL (<150); Unsaturated Iron Binding 196 ug/dL
[2025-07-11 15:23] LABS: Ferritin 38 ng/mL (10-122); Free T4 (Free Thyroxine) 0.94 ng/dL (0.71-1.85); Thyroid Stimulating Hormone 0.80 uIU/mL (0.32-4.0)
[2025-07-11 15:35] LABS: Folate 14.2 ng/mL (> or = 4.0); Vitamin B12 590 pg/mL (200-900)
== END 2025-07-11 13:29 | disposition home or self-care (01) ==
LOC: HO.LAB 13:28
PROVIDERS: PCP Internal Medicine; Visit Provider Internal Medicine
DX: D50.9 Iron deficiency anemia, unspecified (principal); E78.00 Pure hypercholesterolemia, unspecified
CPT/HCPCS: 36415; 80053; 80061; 82306; 82607; 82728; 82746; 83540; 84439; 84443; 85025; 85045

== ENCOUNTER 2025-07-29 15:07 | Outpatient (AMB) | payer OTHER, SELFPAY ==
--- NOTE | 2025-07-29 15:15 | MHC.PC.OV ---
Vital Signs 07/29/25 15:16 Height 5 ft 1 in Weight 139 lb BMI 26.3 BP 118/82 Blood Pressure Location Lt brachial Position Sitting Pulse 66 Pulse Source Pulse Oximeter Pulse Oximetry (%) 99 Oxygen Delivery Method Room Air Intake Visit Reasons: Shortness of breath Cement Paver Required: No Accompanied by: Self / Same As Patient Allergies hydromorphone (Dilaudid) Allergy (Intermediate, Verified 07/29/25 15:20) sob itching, vomiting metronidazole Allergy (Intermediate, Verified 07/29/25 15:20) Mood Swings codeine (CODEINE) Adverse Reaction (Intermediate, Verified 07/29/25 15:20) N/V Medication List - Last Reconciled 07/29/25 by Zeeshan Andrew MD calcipotriene 0.005% appl topical cetirizine mg PO clindamycin phosphate 1% 1 appl topical BID desogestrel-ethinyl estradiol 0.15-0.03 mg (Apri) 1 tab PO DAILY 84 days levothyroxine 75 mcg PO DAILY 90 days multivitamin (Daily Multi-Vitamin tablet) 1 tab PO DAILY pantoprazole 20 mg PO QAM paroxetine HCl 10 mg PO BEDTIME psyllium husk (Fiber (psyllium husk)) 1.04 grams (2 x 0.52 gram) PO BEDTIME PRN triamcinolone acetonide 0.1% 1 appl topical BID-TID Tobacco use date assessed: 07/07/25 Dental Screening Dental Screen Date: 07/29/25 Did you have a dental visit in the last 12 months?: Yes Did you have a dental problem in the last 6 months where you did not have access to dental care?: No Was dental information given to patient?: Patient has dentist HPI HPI Comments History of Present Illness Details The patient is a 30-year-old female presenting with dyspnea. She reports difficulty breathing, which started a couple of weeks ago, characterized by gasping for air while sitting or lying down. The sensation is described as if her insides are exhausted, and she sometimes feels like she is holding her breath unintentionally. The patient denies any specific triggers such as allergies and reports that the dyspnea occurs regardless of her activity or location. She has attempted to manage the symptoms by slowing her breathing and taking deep breaths. The patient also experiences dizziness, which occurs randomly, including while lying down or sitting. She has a history of constipation for which she was prescribed fiber supplements and is awaiting an abdominal ultrasound. The patient has a history of hypothyroidism and is currently taking levothyroxine. She underwent radiation therapy in the past and has seen an chief design branch for management. In 2016 or 2017, she was diagnosed with a mild case of asthma after a pulmonary function test and was prescribed an inhaler, which was later discontinued due to infrequent use. [facility] Medical History Rectal bleeding Rectal itching Flank pain Well woman exam Annual physical exam Foot pain, right Pain of right middle finger Leg swelling Muscle spasm Vitamin B12 deficiency Vaginal discharge UTI (urinary tract infection) Constipation Vitamin D deficiency History of Graves' disease Renal calculus, right Pancreatitis Intussusception Psoriasis Mild asthma Anxiety Esophageal stricture GERD (gastroesophageal reflux disease) Hypothyroidism Surgical History H/O radioactive iodine thyroid ablation Hx of colonoscopy History of surgery History of nasal surgery History of biopsy History of nasal cauterization History of wisdom tooth extraction History of endoscopy History of tonsillectomy Family History Father Elevated cholesterol Neuropathy Throat cancer Mother Raynauds syndrome Cervical cancer Sister Cervical cancer Paternal Grandmother Heart problem Heart attack Maternal Grandmother Lung cancer Paternal Grandfather Thyroid cancer Social History Household Members: Family Housing: House Are you a primary personal care assistant to a significant other at home: No Do you presently have visiting nurse or other home services: No Alcohol intake: current Alcohol intake frequency: holidays/special occasions only Comment: once a month1-3 drinks Patient Tobacco Use Status: Never used Tobacco e-Cigarette/Vaping Use: Never Used Second Hand Smoke Exposure: Yes (Parents are smokers) service: No Current occupational status: employed 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 Current occupational exposures/hazards: No Sexual orientation: Straight/Heterosexual Gender identity: Female Cognitive needs: No Hearing needs: No Vision needs: Yes (Glasses) Female Reproductive History Menstrual Age of Menarche: 13 Questionnaire Thrive Questionnaire Date Thrive assessed: 04/24/25 I am a: Patient What is your living situation today?: I have a steady place to live Within the past 12 months, did the food you bought not last and you didn't have the money to get more?: I choose not to answer this question Within the past 12 months, did you worry whether your food would run out before you got money to buy more?: I choose not to answer this question Do you have trouble paying for medicines?: No Do you have trouble getting transportation to medical appointments?: No Do you have trouble paying your heating and electricity bill?: No Do you have trouble taking care of your child, family member or friend?: I choose not to answer this question Do you have trouble with day-to-day activities such as bathing, preparing meals, shopping, managing finances, etc.?: I choose not to answer this question Are you currently unemployed and looking for a job?: I choose not to answer this question Are you interested in more education?: I choose not to answer this question Please select the resources that you would like help with: None Currently or been in a relationship where the following occur: I choose not to answer THRIVE Score: 0 RAPHAEL-7 AMB Questionnaire RAPHAEL-7 Date RAPHAEL - 7 assessed: 04/24/25 Source: Developed by Drs. Bin Nuñez, Mell Cassidy, Sha Roblero and colleagues, with an educational bessie from [employer]. Review of Systems Const Details: Positives besides what was mentioned in HPI are in BOLD Constitutional: No Weight Change, No Fever, No Chills, No Night Sweats, No Fatigue, No Malaise ENT/Mouth: No Hearing Changes, No Ear Pain, No Nasal Congestion, No Sinus Pain, No Hoarseness, No sore throat, No Rhinorrhea, No Swallowing Difficulty Eyes: No Eye Pain, No Swelling, No Redness, No Foreign Body, No Discharge, No Vision Changes Cardiovascular: No Chest Pain, No SOB, No PND, No Dyspnea on Exertion, No Orthopnea, No Claudication, No Edema, No Palpitations Respiratory: No Cough, No Sputum, No Wheezing, No Smoke Exposure, No Dyspnea Gastrointestinal: No Nausea, No Vomiting, No Diarrhea, No Constipation, No Pain, No Heartburn, No Anorexia, No Dysphagia, No Hematochezia, No Melena, No Flatulence, No Jaundice Genitourinary: No Dysmenorrhea, No DUB, No Dyspareunia, No Dysuria, No Urinary Frequency, No Hematuria, No Urinary Incontinence, No Urgency, No Flank Pain, No Urinary Flow Changes, No Hesitancy Musculoskeletal: No Arthralgias, No Myalgias, No Joint Swelling, No Joint Stiffness, No Back Pain, No Neck Pain, No Injury History Skin: No Skin Lesions, No Pruritis, No Hair Changes, No Breast/Skin Changes, No Nipple Discharge Neuro: No Weakness, No Numbness, No Paresthesias, No Loss of Consciousness, No Syncope, No Dizziness, No Headache, No Coordination Changes, No Recent Falls Psych: No Anxiety/Panic, No Depression, No Insomnia, No Personality Changes, No Delusions, No Rumination, No SI/HI/AH/VH, No Social Issues, No Memory Changes, No Violence/Abuse Hx., No Eating Concerns Heme/Lymph: No Bruising, No Bleeding, No Transfusions History, No Lymphadenopathy Endocrine: No Polyuria, No Polydipsia, No Temperature Intolerance Physical exam (Primary Care) Vital Signs: Last Vital Signs Pulse 66 07/29/25 15:16 BP 118/82 07/29/25 15:16 Pulse Ox 99 07/29/25 15:16 Oxygen Delivery Method Room Air 07/29/25 15:16 BMI result Body Mass Index 26.3 Tobacco/Smoking Status: Tobacco use Status Tobacco use date assessed 07/07/25 07/29/25 15:22 Patient Tobacco Use Status Never used Tobacco 07/29/25 15:22 e-Cigarette/Vaping Use Never Used 07/29/25 15:22 Thrive Assessment: Date of Thrive Assessment Date Thrive assessed 04/24/25 07/29/25 15:22 Currently or been in a relationship where the following occur: I choose not to answer Const Other: Pertinent findings are in BOLD GENERAL APPEARANCE NAD, activity normal for age, well developed/ well nourished, no cyanosis, pallor, or diaphoresis. EYES lids/conjunctiva normal. EARS/NOSE/THROAT Mucous membranes moist, nares normal, lips/teeth normal uvula midline without oral pharyngeal erythema, exudate or swelling TMs normal bilaterally. No lymphangitis/lymphedema. HEAD/NECK normocephalic atraumatic, no facial trauma, neck is supple. RESPIRATORY respiratory effort normal, speaks in full sentences, no tripod position, no accessory muscle use. Lungs clear to auscultation without rhonchi, wheezes, rales CARDIAC Regular rate and rhythm, no edema. ABDOMINAL Soft, ND/NT. No evidence of fluid wave. No pulsatile masses on exam, rebound tenderness, Flores sign or pain over Mcburney's point. MUSCLES/EXTREMITIES No abnormal range of motion, no swelling. SKIN Warm, pink and dry. No rashes, dermatoses, petechiae or lesions. NEUROLOGICAL Speech is clear and appropriate. Normal level of consciousness. Gait and coordination are normal. 5/5 strength in all extremities. PSYCH Normal mood and affect. Judgement/competence is appropriate Coding Level of Care Code Est Pt Level 4 (96677) Diagnoses SOB (shortness of breath) R06.02 Constipation K59.00 Dizziness R42 Assessment & Plan Assessment & Plan (1) SOB (shortness of breath): Code(s): R06.02 - Shortness of breath Category: Medical Plan: PFT although low suspicion of obstructive/ restrictive disease. Albuterol PRN for subjective SOB. (2) Constipation: Code(s): K59.00 - Constipation, unspecified Category: Medical Plan: Advised on lifestyle modifications including reducing Dairy, red meat, gluten and sugar. (3) Dizziness: Code(s): R42 - Dizziness and giddiness Category: Medical Plan: The dizziness will be monitored, and further evaluation may be considered if symptoms persist or worsen. Plan I discussed with the patient the plan to conduct a pulmonary function test to evaluate her respiratory status and the prescription of an albuterol inhaler for symptomatic relief. We also talked about dietary modifications to address her constipation and overall health. I advised her to monitor her dizziness and to follow up if symptoms persist. The importance of continuing her current thyroid medication was emphasized, and the potential need for further evaluation of her asthma was discussed. Orders: Orders PFT pulmonary function test Today R06.02 - Shortness of breath Medications: New albuterol sulfate 90 mcg/actuation (Ventolin HFA) 1 inh inhalation Q6H PRN 6.7 grams 3RF shortness of breath or wheezing 1 month
[2025-07-29 15:16] VITALS: BP 118/82; PULSE 66; O2SAT 99; BMI 26.3
--- OUTSIDE RECORDS SUMMARY | 2025-07-29 18:40 | XMS_ITS | Encounter Summary ---
Author Organization [facility] Address [address] [place] [address] Phone Care Team Providers Care Aircraft Seat Upholsterer Name Role Phone Susan Justice MD Primary Care Provider Unava ilable Encounter Details Date Type Department Care Team (Late st Contact Info) Description 01/20/2014 Documentation [facility] [address] [place] [address] Family Medicine, Physician [address] [place], [place] [address] Social History Tobacco Use Types Packs/Day Years [...] filedocumented in this encounter Care Teams Aircraft Seat Upholsterer Relationship Specialty Start Date End Date Susan Justice MD PCP - General 06/23/17 documented as of this encounter
--- OUTSIDE RECORDS SUMMARY | 2025-07-29 18:40 | XMS_ITS | Clinical Summary ---
Author Organization [facility] Address [address] [place] [address] Care Team Providers Care Lean Sensei Name Role Phone Aniket Gonzalez MD Primary Care Provider [phone] Medical History Medical History Date Comments Anxiety [...] 10/15/2022 Social Influencers of Health Screening 10/15/2022 Depression Screening 11/13/2024 COVID-19 Vaccine (1 - 2023-2 5 season) 2025 Influenza Vaccine (#1) 2025 9, 07/27/2018, 11/26/2015 [...] age to complete this topic Care Teams Lean Sensei Relationship Specialty Start Date End Date Aniket Gonzalez MD [address] [place] [address] [address] [facility] [place] [address] PCP - General Internal Medicine 01/16/20
--- OUTSIDE RECORDS SUMMARY | 2025-07-29 18:40 | XMS_ITS | Encounter Summary ---
Author Organization [facility] Address [address] [place] [address] Phone Care Team Providers Care Control Supervisor Name Role Phone Susan Justice MD Primary Care Provider Unava ilable Encounter Details Date Type Department Care Team (Late st Contact Info) Description 01/18/2010 Documentation [facility] [address] [place] [address] Family Medicine, Physician [address] [place], [place] [address] Social History Tobacco Use Types Packs/Day Years [...] on filedocumented in this encounter Care Teams Control Supervisor Relationship Specialty Start Date End Date Susan Justice MD PCP - General 06/23/17 documented as of this encounter
--- OUTSIDE RECORDS SUMMARY | 2025-07-29 18:40 | XMS_ITS | Patient Health Record ---
Author Organization [facility] Address [address] [place] [address] Care Team Providers Care Casting Machine Set Up Operator Name Role Phone Charline Bernardo Primary Care Provider Tiago Kiser Jr Unavailable [phone] Allergies Allergen (clinical drug ingredient) Drug/Non Drug [...] Problem Status W/U Status Risk Notes Problem [id number] Epigastric pain (R10.13) Active confirmed Problem [id number] Right upper quadrant pain (R10.11) Active confirmed Problem [id number] Dysphagia, unspecified type (R13.10) Active confirmed Plan Of Treatment Future Test Test Name Order Date UPPER GI ENDOSCOPY 01/19/2018 Insurance Providers Payer Name Payer Address Payer Phone Subscriber Number Group Number Insured Name Patient Relationship to Insured Coverage Start Date Coverage End Date [employer] [address] [place], [place] [id number] [phone] [id number] GAGE MORALES Self - patient is the insured [place] [address] [place] [phone] [id number] GAGE MORALES Self - patient is the insured Medical (General) History Medical History History ICD Code panic attacks hyperthyroidism mild asthma hives Surgical History Surgery Date(Month/Year) skin biopsy on back 2018 tonsils childhood finger index childhood
--- OUTSIDE RECORDS SUMMARY | 2025-07-29 18:40 | XMS_ITS | Clinical Summary ---
Author Organization [facility] Address [address] [place] [address] Phone Care Team Providers Care Airplane Pilot Photogrammetry Name Role Phone Susan Justice MD Primary [...] 09/17/1996, Additional history exists Influenza Vaccines (#1) 2025 11/26/19 16, 09/03/2014, 09/05/2013 COVID-19 Vaccine ( season) 2025 Hepatitis B Vaccines Completed 01/15/1996, 1995, 1995 [...] age to complete this topic Care Teams Airplane Pilot Photogrammetry Relationship Specialty Start Date End Date Susan Justice MD PCP - General 06/23/17
--- OUTSIDE RECORDS SUMMARY | 2025-07-29 18:40 | XMS_ITS | Clinical Summary ---
Author Organization [facility] Address [address] [address] Phone Care Team Providers Care Lump Room Supervisor Name Role Phone Aniket Gonzalez MD Primary Care Provider [phone] Allergies Active Allergy Reactions Criticality Noted Date [...] SCREENING (18-65 YEARS) 2013 PAP SMEAR 2016 INFLUENZA VACCINE (#1) 2025 , 07/10/2019, 07/27/2018, Additional history exists COVID-19 VACCINE ( season) 2025 02/04/2021, 12/31/2020 Adult Td,Tdap Booster 09/28/2026 09/28/2016, [...] topic Medical Devices Not on file Insurance [facility] ACO ACO ACO [place] [address] [place] [id number] ACO [facility] ACO Care Teams Lump Room Supervisor Relationship Specialty Start Date End Date Aniket Gonzalez MD [address] [place] [address] [address] [place] [phone] PCP - General Internal Medicine 08/03/21 Additional Source Comments The information contained in this document represents components of the legal health record. It is not the complete legal health record.[facility]
--- OUTSIDE RECORDS SUMMARY | 2025-07-29 18:40 | XMS_ITS | Encounter Summary ---
Author Organization [facility] Address [address] [place] [address] Phone Care Team Providers Care Crystal Growing Technician Name Role Phone Susan Justice MD Primary Care Provider Unava ilable Encounter Details Date Type Department Care Team (Late st Contact Info) Description 06/29/2017 Conversion Encounter [facility] - [address] [phone] Social History Tobacco Use Types Packs/Day Years [...] on filedocumented in this encounter Care Teams Crystal Growing Technician Relationship Specialty Start Date End Date Susan Justice MD PCP - General 06/23/17 documented as of this encounter
--- OUTSIDE RECORDS SUMMARY | 2025-07-29 18:40 | XMS_ITS | Encounter Summary ---
Author Organization [facility] Address [address] [place] [address] Phone Care Team Providers Care Safety Scientist Name Role Phone Susan Justice MD Primary Care Provider Unava ilable Encounter Details Date Type Department Care Team (Late st Contact Info) Description 01/18/2010 Documentation [facility] [address] [place] [address] Family Medicine, Physician [address] [place], [place] 932771 Social History Tobacco Use Types Packs/Day Years [...] on filedocumented in this encounter Care Teams Safety Scientist Relationship Specialty Start Date End Date Susan Justice MD PCP - General 06/23/17 documented as of this encounter
== END 2025-07-29 15:50 | disposition home or self-care (01) ==
LOC: HO.HMCH 15:07
PROVIDERS: PCP Internal Medicine; Visit Provider Internal Medicine
DX: R06.02 Shortness of breath (principal); K59.00 Constipation, unspecified; R42 Dizziness and giddiness

== ENCOUNTER → 2025-07-29 15:07 | Outpatient (BNVA) | payer OTHER, SELFPAY | PROVIDERS: PCP Internal Medicine; Visit Provider Internal Medicine | DX: R06.02 Shortness of breath (principal); K59.00 Constipation, unspecified; R42 Dizziness and giddiness; Z77.22 Contact with and (suspected) exposure to environmental tobacco smoke (acute) (chronic) | CPT/HCPCS: 99212 ==

== ENCOUNTER 2025-09-05 15:20 | Outpatient (REF) | payer OTHER, SELFPAY ==
--- NOTE | ~2025-09-05 | US_ITS ---
EXAMINATION: US Pelvis, limited CLINICAL INFORMATION: R10.32 - Left lower quadrant pain COMPARISON: None available. TECHNIQUE: Grayscale and color Doppler imaging was performed through the left kidney and adnexa in left lower quadrant FINDINGS: Left ovary measures 2.1 x 1.1 cm and demonstrates no mass or abnormality. Left kidney is 10.2 cm long axis and demonstrates no stones or hydronephrosis. There is no cortical thinning. Imaged portions of the visualized uterus are unremarkable. Images through the left lower quadrant demonstrates mostly shadowing related to bowel gas without other abnormalities. US/US pelvic limited IMPRESSION: Unremarkable examination. Electronically signed by: Aki Clifford MD 09/05/2025 03:46 PM EDT
--- OUTSIDE RECORDS SUMMARY | 2025-09-05 16:53 | XMS_ITS | Encounter Summary ---
Author Organization [facility] Address [address] [place] [address] Phone Care Team Providers Care Engine Head Repairer Name Role Phone Susan Justice MD Primary Care Provider Unava ilable Encounter Details Date Type Department Care Team (Late st Contact Info) Description 06/29/2017 Conversion Encounter [facility] - [address] [phone] Social History Tobacco Use Types Packs/Day Years [...] on filedocumented in this encounter Care Teams Engine Head Repairer Relationship Specialty Start Date End Date Susan Justice MD PCP - General 06/23/17 documented as of this encounter
--- OUTSIDE RECORDS SUMMARY | 2025-09-05 16:53 | XMS_ITS | Clinical Summary ---
Author Organization [facility] Address [address] [place] [address] Care Team Providers Care Field Aide Name Role Phone Unavailable Primary Care Provider [...] on patient[place] [address] SherylDaksha Personal/Family Self 1995 [address] [facility] [place] [address]
--- OUTSIDE RECORDS SUMMARY | 2025-09-05 16:53 | XMS_ITS | Clinical Summary ---
Author Organization [facility] Address [address] [place] [address] Care Team Providers Care Commission Associate Name Role Phone Aniket Gonzalez MD Primary Care Provider [phone] Encounters Date Type Department Care Team Description 08/18/2025 Telephone Gastroenterology - [place] [address] [place] [address] Thania Jay MD from Last 3 Months Medical History Medical History Date Comments Anxiety 06/12/2022 DX:Anxiety Esophageal stricture 06/12/2022 DX:Esophage al stricture GERD (gastroesophageal reflux disease) 06/12/2022 DX:GERD (gastroesophageal reflux disease) History of Graves' disease 06/12/2022 DX:Hi story of Graves' disease Intussusception (CMS/HCC V24 , CMS/HCC V28) 06/12/2022 DX:Intussusception ([facility]) Mild asthma 06/12/2022 DX:Mild asthma History of [...] Cervical Cancer Screening: P ap Smear 2016 HPV Vaccines (1 - 3-dose SCD M series) 2022 HIV Screening 10/15/2022 Hepatitis C Screening 10/15/2022 Social Influencers of Health Screening 10/15/2022 Depression Screening 11/13/2024 COVID-19 Vaccine (1 - 2023-2 5 season) 2025 Influenza Vaccine (#1) 2025 9, 07/27/2018, 11/26/2015 DTaP,Tdap,and Td Vaccines (3 - Td or Tdap) 09/28/2026 09/28/2016, 08/30/2006 RSV Immunization Adult Patients (1 - 1-dose 75+ series) 2070 Hepatitis B Vaccines Completed 01/15/1996, 1995, 1995 [...] age to complete this topic Care Teams Commission Associate Relationship Specialty Start Date End Date Aniket Gonzalez MD [address] [place] [address] [address] [facility] [place] [address] PCP - General Internal Medicine 01/16/20
--- OUTSIDE RECORDS SUMMARY | 2025-09-05 16:53 | XMS_ITS | Encounter Summary ---
Author Organization [facility] Address [address] [place] [address] Phone Care Team Providers Care Departmental Buyer Name Role Phone Susan Justice MD Primary Care Provider Unava ilable Encounter Details Date Type Department Care Team (Late st Contact Info) Description 01/20/2014 Documentation [facility] Family [facility] [address] [place] [address] Family Medicine, Physician [address] [place], [place] 79[address] Social History Tobacco Use Types Packs/Day Years [...] on filedocumented in this encounter Care Teams Departmental Buyer Relationship Specialty Start Date End Date Susan Justice MD PCP - General 06/23/17 documented as of this encounter
--- OUTSIDE RECORDS SUMMARY | 2025-09-05 16:53 | XMS_ITS | Encounter Summary ---
Author Organization [facility] Address [address] [place] [address] Phone Care Team Providers Care Licensed Bondsman Name Role Phone Susan Justice MD Primary Care Provider Unava ilable Encounter Details Date Type Department Care Team (Late st Contact Info) Description 01/18/2010 Documentation [facility] [address] [place] [address] Family Medicine, Physician [address] [place], [place] [address] Social History Tobacco Use Types Packs/Day Years [...] on filedocumented in this encounter Care Teams Licensed Bondsman Relationship Specialty Start Date End Date Susan Justice MD PCP - General 06/23/17 documented as of this encounter
--- OUTSIDE RECORDS SUMMARY | 2025-09-05 16:53 | XMS_ITS | Patient Health Record ---
Author Organization [facility] Address [address] [place] [address] Care Team Providers Care Director Biology Name Role Phone Charline Bernardo Primary Care Provider Tiago Kiser Jr Unavailable [phone] Allergies Allergen (clinical drug ingredient) Drug/Non Drug Allergy documented on EMR Reaction Allergy Type Onset Date Status codeine Codeine Sulfate Unknown Drug Allergy A ctive Reason For Referral No Information Medications Medication SIG (Take, Route, Frequency, Duration) Notes Start Date End Date Status Vitamin D 1000 UNIT 1 tablet Orally Once a day; Duration: 30 day(s) Active Levothyroxine Sodium 50 MCG TK 1 T PO QD IN THE MORNING OES Oral; Duration: 30 Active Social History Tobacco Use: Social [...] Problem Status W/U Status Risk Notes Problem Epigastric pain (46867119) Epigastric pain (R10.13) Active confirmed Problem Right upper quadrant pain (887432295) Right upper quadrant pain (R10.11) Active confirmed Problem Dysphagia (87910082) Dysphagia, unspecified type (R13.10) Active confirmed Plan Of Treatment Future Test Test Name Order Date UPPER GI ENDOSCOPY 01/19/2018 Insurance Providers Payer Name Payer Address Payer Phone Subscriber Number Group Number Insured Name Patient Relationship to Insured Coverage Start Date Coverage End Date [facility] [address] [place], [place] [id number] [phone] [id number] GAGE MORALES Self - patient is the insured [place] [address] [place] [phone] [id number] GAGE MORALES Self - patient is the insured Medical (General) History Medical History History ICD Code panic attacks hyperthyroidism mild asthma hives Surgical History Surgery Date(Month/Year) skin biopsy on back 2018 tonsils childhood finger index childhood
--- OUTSIDE RECORDS SUMMARY | 2025-09-05 16:53 | XMS_ITS | Encounter Summary ---
Author Organization [facility] Address [address] [place] [address] Phone Care Team Providers Care Meat Cutting Block Repairer Name Role Phone Susan Justice MD Primary Care Provider Unava ilable Encounter Details Date Type Department Care Team (Late st Contact Info) Description 01/18/2010 Documentation [facility] [address] [place] [address] Family Medicine, Physician [address] [place], [place] [address] Social History Tobacco Use Types Packs/Day Years [...] on filedocumented in this encounter Care Teams Meat Cutting Block Repairer Relationship Specialty Start Date End Date Susan Justice MD PCP - General 06/23/17 documented as of this encounter
--- OUTSIDE RECORDS SUMMARY | 2025-09-05 16:53 | XMS_ITS | Clinical Summary ---
Author Organization [facility] Address [address] [place] [address] Phone Care Team Providers Care Reinforced Steel Placing Supervisor Name Role Phone Susan Justice MD [...] 11/26/19 16, 09/03/2014, 09/05/2013 COVID-19 Vaccine ( - season) 2025 Hepatitis B Vaccines Completed 01/15/1996, [...] age to complete this topic Care Teams Reinforced Steel Placing Supervisor Relationship Specialty Start Date End Date Susan Justice MD PCP - General 06/23/17
--- OUTSIDE RECORDS SUMMARY | 2025-09-05 16:53 | XMS_ITS | Clinical Summary ---
Author Organization [facility] Address [address] [address] Phone Care Team Providers Care Music Publisher Name Role Phone Aniket Gonzalez MD Primary Care Provider [phone] Allergies Active Allergy Reactions Criticality Noted Date [...] topic Medical Devices Not on file Insurance [facility] ACO ACO ACO ACO ACO [place] [address] [address] ACO [facility] ACO Care Teams Music Publisher Relationship Specialty Start Date End Date Aniket Gonzalez MD [address] [place] [address] [address] [place] [phone] PCP - General Internal Medicine 08/03/21 Additional Source Comments The information contained in this document represents components of the legal health record. It is not the complete legal health record.[facility]
== END 2025-09-05 15:21 | disposition home or self-care (01) ==
LOC: HO.HMGCX 15:20
PROVIDERS: PCP Internal Medicine; Visit Provider Internal Medicine
DX: R10.32 Left lower quadrant pain (principal)
CPT/HCPCS: 76857

== ENCOUNTER → 2025-09-05 15:22 | Outpatient (BNV) | payer OTHER, SELFPAY | PROVIDERS: PCP Internal Medicine; Visit Provider Radiology Diagnostic Radiology | DX: R10.32 Left lower quadrant pain (principal) | CPT/HCPCS: 76857 ==

== ENCOUNTER 2025-10-17 16:00 | Outpatient (REF) | payer OTHER, SELFPAY ==
--- NOTE | 2025-10-17 16:03 | PFT_ITS ---
Indication: Dyspnea Spirometry FEV1 to FVC 88%; FEV1 2.81 L; FVC 3.21 L. No significant response to bronchodilators noted Lung Volumes Total lung capacity 98% predicted; residual volume 116% predicted Diffusion Capacity DLCO 87% predicted MVV 80% predicted Comparisons None Interpretation No obstructive nor restrictive ventilatory defects identified. No significant response to bronchodilators noted. Maximum voluntary low normal could be secondary to deconditioning. Lung volumes are normal except for trend of air trapping. Diffusing capacity is within normal limits. If asthma is in the differential methacholine challenge may be helpful in assessing for hyperreactive airways. Clinical correlation warranted. MTDD
[2025-10-17 16:47] VITALS: PULSE 80
--- OUTSIDE RECORDS SUMMARY | 2025-10-17 19:47 | XMS_ITS | Encounter Summary ---
Author Organization [facility] Address [address] [place] [address] Phone Care Team Providers Care Cook Night Name Role Phone Susan Justice MD Primary Care Provider Unava ilable Encounter Details Date Type Department Care Team (Late st Contact Info) Description 01/18/2010 Documentation [facility] [address] [place] [address] Family Medicine, Physician [address] [place], [place] [address] Social History Tobacco Use Types Packs/Day Years [...] on filedocumented in this encounter Care Teams Cook Night Relationship Specialty Start Date End Date Susan Justice MD PCP - General 06/23/17 documented as of this encounter
--- OUTSIDE RECORDS SUMMARY | 2025-10-17 19:47 | XMS_ITS | Clinical Summary ---
Author Organization [facility] Address [address] [place] [address] Phone Care Team Providers Care Legislative Aide Name Role Phone Susan Justice MD Primary [...] age to complete this topic Care Teams Legislative Aide Relationship Specialty Start Date End Date Susan Justice MD PCP - General 06/23/17
--- OUTSIDE RECORDS SUMMARY | 2025-10-17 19:47 | XMS_ITS | Encounter Summary ---
Author Organization [facility] Address [address] [place] [address] Phone Care Team Providers Care Field Coil Winder Name Role Phone Susan Justice MD Primary Care Provider Unava ilable Encounter Details Date Type Department Care Team (Late st Contact Info) Description 01/18/2010 Documentation [facility] [address] [place] [address] Family Medicine, Physician [address] [place], [place] [address] Social History Tobacco Use Types Packs/Day Years [...] on filedocumented in this encounter Care Teams Field Coil Winder Relationship Specialty Start Date End Date Susan Justice MD PCP - General 06/23/17 documented as of this encounter
--- OUTSIDE RECORDS SUMMARY | 2025-10-17 19:47 | XMS_ITS | Clinical Summary ---
Author Organization [facility] Prior to 04/12/[address] [place] [address] Care Team Providers Care Private Equity Associate Name Role Phone Unavailable Primary Care Provider [...] topic Daksha Saucedo Personal/Family Self 1995 [address] [facility] [place] [address]
--- OUTSIDE RECORDS SUMMARY | 2025-10-17 19:47 | XMS_ITS | Encounter Summary ---
Author Organization [facility] Address [address] [place] [address] Phone Care Team Providers Care Continuous Mining Machine Coal Miner Name Role Phone Susan Justice MD Primary Care Provider Unava ilable Encounter Details Date Type Department Care Team (Late st Contact Info) Description 01/20/2014 Documentation [facility] Family Medicine [address] [place] [address] Family Medicine, Physician [address] [place], [place] [address] Social History Tobacco Use Types Packs/Day Years [...] on filedocumented in this encounter Care Teams Continuous Mining Machine Coal Miner Relationship Specialty Start Date End Date Susan Justice MD PCP - General 06/23/17 documented as of this encounter
--- OUTSIDE RECORDS SUMMARY | 2025-10-17 19:47 | XMS_ITS | Clinical Summary ---
Author Organization [facility] Address [address] [address] Phone Care Team Providers Care Battery Tester Name Role Phone Aniket Gonzalez MD Primary Care Provider [phone] Allergies Active Allergy Reactions Criticality Noted Date [...] topic Medical Devices Not on file Insurance [facility] ACO ACO ACO ACO [place] [address] [place] [address] ACO [facility] Care Teams Battery Tester Relationship Specialty Start Date End Date Aniket Gonzalez MD [address] [place] [address] [address] [place] [phone] PCP - General Internal Medicine 08/03/21 Additional Source Comments The information contained in this document represents components of the legal health record. It is not the complete legal health record.[facility]
--- OUTSIDE RECORDS SUMMARY | 2025-10-17 19:47 | XMS_ITS | Clinical Summary ---
Author Organization [facility] Address [address] [place] [address] Care Team Providers Care Morphology Teacher Name Role Phone Aniket Gonzalez MD Primary Care Provider [phone] Encounters Date Type Department Care Team Description 08/18/2025 Telephone Gastroenterology - [place] [employer] [address] [place] [address] Thania Jay MD from Last 3 Months Medical History Medical History Date Comments Anxiety 06/12/2022 DX:Anxiety Esophageal stricture 06/12/2022 DX:Esophage al stricture GERD (gastroesophageal reflux disease) 06/12/2022 DX:GERD (gastroesophageal reflux disease) History of Graves' disease 06/12/2022 DX:Hi story of Graves' disease Intussusception (CMS/HCC V24 , CMS/HCC V28) 06/12/2022 DX:Intussusception ([facility]) Mild asthma 06/12/2022 DX:Mild asthma History of [...] Depression Screening 11/13/2024 COVID-19 Vaccine (1 - 2024-2 6 season) 2025 Influenza Vaccine (#1) 2025 9, [...] age to complete this topic Care Teams Morphology Teacher Relationship Specialty Start Date End Date Aniket Gonzalez MD [address] [place] [address] [address] [facility] [place] [address] PCP - General Internal Medicine 01/16/20
--- OUTSIDE RECORDS SUMMARY | 2025-10-17 19:47 | XMS_ITS | Encounter Summary ---
Author Organization [facility] Address [address] [place] [address] Phone Care Team Providers Care Wet Machine Cutter Name Role Phone Susan Justice MD Primary Care Provider Unava ilable Encounter Details Date Type Department Care Team (Late st Contact Info) Description 06/29/2017 Conversion Encounter [facility] - [address] [phone] Social History Tobacco Use Types Packs/Day Years [...] on filedocumented in this encounter Care Teams Wet Machine Cutter Relationship Specialty Start Date End Date Susan Justice MD PCP - General 06/23/17 documented as of this encounter
== END 2025-10-17 16:01 | disposition home or self-care (01) ==
LOC: HO.RESP 16:00
PROVIDERS: PCP Internal Medicine; Visit Provider Internal Medicine
DX: R06.02 Shortness of breath (principal); R06.00 Dyspnea, unspecified
CPT/HCPCS: 94060; 94640; 94727; 94729

== ENCOUNTER → 2025-10-17 16:03 | Outpatient (BNV) | payer OTHER, SELFPAY | PROVIDERS: PCP Internal Medicine; Visit Provider Hospitalist | DX: R06.02 Shortness of breath (principal) | CPT/HCPCS: 94060; 94727; 94729 ==